=== PATIENT | male | born 1950 | race Caucasian/White ===

== ENCOUNTER 2017-05-02 16:00 | Inpatient (IN) ==
[2017-05-02 19:37] LABS: Basophils # 0.1 10*3/uL (0.0-0.2); Basophils % 0.8 % (0.0-0.8); Eosinophils # 0.8 10*3/uL (0.0-0.87); Eosinophils % 4.8 % (0.00-10.9); Hemoglobin 12.8 GM/DL (14.0-18.0); Immature Granulocytes % 0.4 %; Immature Granulocytes Absolute 0.06 #; Lymphocytes # 2.9 10*3/uL (1.4-4.0); Lymphocytes % 17.2 % (21.2-54.2); Mean Corpuscular HGB Conc 33.7 GM/DL (32-36); Mean Corpuscular Hemoglobin 29 PG (27-34); Mean Corpuscular Volume 85.6 FL (87-102); Mean Platelet Volume 9.4 FL (9.6-12.0); Monocytes % 5.7 % (1.7-12.7); Neutrophils % 71.1 % (38.7-73.9); Platelet Count 317 T/CUMM (130-400); Red Blood Count 4.44 MC/CUMM (3.8-5.5); Red Cell Distribution Width 13.2 % (9.3-17.3); White Blood Count 16.9 T/CUMM (4-12)
[2017-05-02 20:21] LABS: Albumin 3.2 G/DL (3.4-5.0); Bilirubin,Total 0.7 MG/DL (0.2-1.0); Calcium 8.9 MG/DL (8.5-10.1); Osmolality,Calculated 283.7 MOS/KG (273-304); Potassium 4.3 MMOL/L (3.5-5.1); Total Protein 7.4 G/DL (6.4-8.3)
[2017-05-02 20:22] LABS: Apearance,Urine CLOUDY (Clear); Bacteria,Urine Many /HPF (Few); Bilirubin,Urine Negative (Negative); Blood, Urine Large mg/dL (Negative); Glucose,Urine (UA) Negative (Negative); Ketones,Urine Negative (Negative); Mucus,Urine Occasional /LPF (Occasional); Nitrite,Urine Positive (Negative); Protein,Urine Negative; RBC,Urine 82 /HPF (0-4); Urine Color Yellow (Yellow); Urine Specific Gravity 1.011 (1.001-1.035); Urine Urobilinogen < 2.0 EU/DL (0.2-1.0); WBC,Urine 91 /HPF (0-6)
[2017-05-02] MEDS ORDERED: ACETAMINOPHEN 325 MG TABLET PO PRN (20:34)
[2017-05-02] MEDS ORDERED: MORPHINE 2 MG/1 ML SYRINGE IV PRN (20:34)
[2017-05-02] MEDS ORDERED: DIPH/TET/ACEL PERT BOOSTER VACCINE 0.5 ML VIAL IM ONE (20:34)
[2017-05-02] MEDS ORDERED: ONDANSETRON 4 MG/2 ML VIAL IV PRN (20:34)
[2017-05-02] MEDS: SODIUM CHLORIDE 0.45% 1,000 ML IV SCH (21:19)
[2017-05-02 22:32] LABS: Basophils # 0.1 10*3/uL (0.0-0.2); Basophils % 0.7 % (0.0-0.8); Eosinophils # 0.7 10*3/uL (0.0-0.87); Eosinophils % 4.5 % (0.00-10.9); Hemoglobin 12.7 GM/DL (14.0-18.0); Immature Granulocytes % 0.5 %; Immature Granulocytes Absolute 0.08 #; Lymphocytes % 18.9 % (21.2-54.2); Mean Corpuscular HGB Conc 34.3 GM/DL (32-36); Mean Corpuscular Hemoglobin 29 PG (27-34); Mean Corpuscular Volume 84.3 FL (87-102); Mean Platelet Volume 9.5 FL (9.6-12.0); Monocytes # 0.9 10*3/uL (0.11-0.8); Monocytes % 5.5 % (1.7-12.7); Neutrophils # 10.9 10*3/uL (1.4-7.4); Neutrophils % 69.9 % (38.7-73.9); Platelet Count 352 T/CUMM (130-400); Red Blood Count 4.39 MC/CUMM (3.8-5.5); Red Cell Distribution Width 13.2 % (9.3-17.3); White Blood Count 15.6 T/CUMM (4-12)
[2017-05-02 22:43] LABS: Calcium 9.1 MG/DL (8.5-10.1); Osmolality,Calculated 285.4 MOS/KG (273-304); Potassium 4.4 MMOL/L (3.5-5.1)
[2017-05-02] MEDS: LEVOFLOXACIN INJ 750 MG in PREMIX 1 EACH IV SCH (23:39)
[2017-05-03] MEDS: SODIUM CHLORIDE 0.45% 1,000 ML IV SCH ×3 (04:24→22:06)
[2017-05-03] MEDS ORDERED: DIPH/TET/ACEL PERT BOOSTER VACCINE 0.5 ML VIAL IM ONE (05:00)
[2017-05-03] MEDS: PANTOPRAZOLE 40 MG TABLET PO SCH (10:20)
[2017-05-03] MEDS ORDERED: PROPOFOL 200 MG/20 ML VIAL IV ONE (13:42)
[2017-05-03] MEDS ORDERED: ONDANSETRON 4 MG/2 ML VIAL ONE (13:43)
[2017-05-03] MEDS ORDERED: MIDAZOLAM 2 MG/2 ML VIAL ONE (13:43)
[2017-05-03] MEDS ORDERED: PHENYLEPHRINE 1 MG/10 ML SYRINGE IV ONE (13:43)
[2017-05-03] MEDS ORDERED: fentaNYL 100 MCG/2 ML VIAL ONE (13:43)
[2017-05-03] MEDS: SODIUM HYPOCHLORITE 0.25% IRRIG 473 ML BOTTLE TOP SCH (15:01)
[2017-05-03] MEDS: ZINC OXIDE PASTE 113 GM TUBE TOP SCH ×2 (15:02→21:36)
[2017-05-03] MEDS ORDERED: SODIUM CHLORIDE 0.9% IV SCH (18:30)
[2017-05-03] MEDS ORDERED: GENTAMICIN IV SCH (18:30)
[2017-05-03] MEDS ORDERED: GLUCAGON 1 MG VIAL IM PRN (18:45)
[2017-05-03] MEDS ORDERED: DEXTROSE 50% 25 GM/50 ML VIAL IV PRN (18:45)
[2017-05-03] MEDS: GENTAMICIN INJ 160 MG in SODIUM CHLORIDE 0.9% 100 ML IV SCH (20:46)
[2017-05-03] MEDS: INSULIN REGULAR 100 UNIT/ML SUBCUT SCH (21:35)
[2017-05-03] MEDS: metFORMIN 500 MG TABLET PO SCH (21:37)
[2017-05-03] MEDS: GLIMEPIRIDE 4 MG TABLET PO SCH (21:37)
[2017-05-04] MEDS: LEVOFLOXACIN INJ 750 MG in PREMIX 1 EACH IV SCH (00:15)
[2017-05-04] MEDS: SODIUM CHLORIDE 0.45% 1,000 ML IV SCH ×2 (04:06→14:13)
[2017-05-04 05:39] LABS: Basophils # 0.1 10*3/uL (0.0-0.2); Basophils % 0.8 % (0.0-0.8); Eosinophils # 0.7 10*3/uL (0.0-0.87); Eosinophils % 5.2 % (0.00-10.9); Hematocrit 35.1 VOL% (42.0-52.0); Hemoglobin 11.9 GM/DL (14.0-18.0); Immature Granulocytes % 0.4 %; Immature Granulocytes Absolute 0.05 #; Lymphocytes # 2.6 10*3/uL (1.4-4.0); Lymphocytes % 20.2 % (21.2-54.2); Mean Corpuscular HGB Conc 33.9 GM/DL (32-36); Mean Corpuscular Hemoglobin 29 PG (27-34); Mean Platelet Volume 9.5 FL (9.6-12.0); Monocytes # 0.8 10*3/uL (0.11-0.8); Monocytes % 6.4 % (1.7-12.7); Neutrophils # 8.6 10*3/uL (1.4-7.4); Platelet Count 319 T/CUMM (130-400); Red Blood Count 4.13 MC/CUMM (3.8-5.5); Red Cell Distribution Width 13.4 % (9.3-17.3); White Blood Count 12.8 T/CUMM (4-12)
[2017-05-04 06:23] LABS: Calcium 8.4 MG/DL (8.5-10.1); Osmolality,Calculated 281.4 MOS/KG (273-304); Potassium 4.3 MMOL/L (3.5-5.1)
[2017-05-04 06:33] LABS: Free T4 (Free Thyroxine) 1.07 NG/DL (0.76-1.46); Thyroid Stimulating Hormone 8.57 uIU/ml (0.358-3.74)
[2017-05-04] MEDS: LEVOTHYROXINE 150 MCG TABLET PO SCH (07:10)
[2017-05-04] MEDS: CHOLECALCIFEROL 5,000 UNIT TABLET PO SCH (08:23)
[2017-05-04] MEDS: OXYBUTYNIN XL 15 MG TABLET PO SCH (08:23)
[2017-05-04] MEDS: metFORMIN 500 MG TABLET PO SCH ×3 (08:23→21:18)
[2017-05-04] MEDS: GLIMEPIRIDE 4 MG TABLET PO SCH ×2 (08:23→21:18)
[2017-05-04] MEDS: ASPIRIN EC 81 MG TABLET PO SCH (08:23)
[2017-05-04] MEDS: PANTOPRAZOLE 40 MG TABLET PO SCH (08:23)
[2017-05-04] MEDS: amLODIPine 10 MG TABLET PO SCH (08:23)
[2017-05-04] MEDS: MULTIVITAMIN (BEROCCA) TABLET PO SCH (08:23)
[2017-05-04] MEDS: INSULIN REGULAR 100 UNIT/ML SUBCUT SCH ×4 (08:24→21:18)
[2017-05-04] MEDS: ZINC OXIDE PASTE 113 GM TUBE TOP SCH ×2 (08:24→21:16)
[2017-05-04] MEDS: GENTAMICIN INJ 160 MG in SODIUM CHLORIDE 0.9% 100 ML IV SCH (14:45)
[2017-05-04] MEDS: SODIUM HYPOCHLORITE 0.25% IRRIG 473 ML BOTTLE TOP SCH (14:45)
[2017-05-05 05:49] LABS: Basophils # 0.1 10*3/uL (0.0-0.2); Basophils % 0.7 % (0.0-0.8); Eosinophils # 0.7 10*3/uL (0.0-0.87); Eosinophils % 5.4 % (0.00-10.9); Hematocrit 35.1 VOL% (42.0-52.0); Hemoglobin 11.9 GM/DL (14.0-18.0); Immature Granulocytes % 0.4 %; Immature Granulocytes Absolute 0.06 #; Lymphocytes # 2.6 10*3/uL (1.4-4.0); Lymphocytes % 18.9 % (21.2-54.2); Mean Corpuscular HGB Conc 33.9 GM/DL (32-36); Mean Corpuscular Hemoglobin 29 PG (27-34); Mean Platelet Volume 9.7 FL (9.6-12.0); Monocytes % 7.2 % (1.7-12.7); Neutrophils # 9.2 10*3/uL (1.4-7.4); Neutrophils % 67.4 % (38.7-73.9); Platelet Count 311 T/CUMM (130-400); Red Blood Count 4.13 MC/CUMM (3.8-5.5); Red Cell Distribution Width 13.4 % (9.3-17.3); White Blood Count 13.7 T/CUMM (4-12)
[2017-05-05] MEDS: LEVOTHYROXINE 150 MCG TABLET PO SCH (06:21)
[2017-05-05 06:28] LABS: Calcium 8.1 MG/DL (8.5-10.1); Osmolality,Calculated 285.1 MOS/KG (273-304); Potassium 4.2 MMOL/L (3.5-5.1)
[2017-05-05] MEDS: INSULIN REGULAR 100 UNIT/ML SUBCUT SCH ×2 (08:32→11:52)
[2017-05-05] MEDS: GENTAMICIN INJ 160 MG in SODIUM CHLORIDE 0.9% 100 ML IV SCH (08:44)
[2017-05-05] MEDS: MULTIVITAMIN (BEROCCA) TABLET PO SCH (09:52)
[2017-05-05] MEDS: CHOLECALCIFEROL 5,000 UNIT TABLET PO SCH (09:52)
[2017-05-05] MEDS: OXYBUTYNIN XL 15 MG TABLET PO SCH (09:52)
[2017-05-05] MEDS: amLODIPine 10 MG TABLET PO SCH (09:53)
[2017-05-05] MEDS: ASPIRIN EC 81 MG TABLET PO SCH (09:53)
[2017-05-05] MEDS: PANTOPRAZOLE 40 MG TABLET PO SCH (09:53)
[2017-05-05] MEDS: metFORMIN 500 MG TABLET PO SCH (09:54)
[2017-05-05] MEDS: GLIMEPIRIDE 4 MG TABLET PO SCH (09:54)
[2017-05-05] MEDS ORDERED: DOXYCYCLINE HYCLATE 100 MG CAPSULE PO SCH (11:00)
[2017-05-05 11:27] VITALS: BP 119/74
[2017-05-05] MEDS: SODIUM HYPOCHLORITE 0.25% IRRIG 473 ML BOTTLE TOP SCH (14:10)
== END 2017-05-05 16:08 | disposition home health service (06) | DRG 503 ==
LOC: N.EDINP 16:00 → N.ED 16:00 → N.3E 20:06
PROVIDERS: ADMIT Surgery; ATTEND Surgery

== ENCOUNTER 2019-02-19 16:59 | Inpatient (IN) ==
[2019-02-19] MEDS ORDERED: fentaNYL 100 MCG/2 ML VIAL IV STA (18:28)
[2019-02-19] MEDS ORDERED: SODIUM CHLORIDE 0.9% 1,000 ML IV STA ×2 (18:28→19:41)
[2019-02-19] MEDS ORDERED: ONDANSETRON 4 MG/2 ML VIAL IV STA (18:28)
[2019-02-19 19:26] LABS: Alanine Aminotransferase 19 U/L (16-61); Albumin 2.4 G/DL (3.4-5.0); Alkaline Phosphatase 107 U/L (45-117); Aspartate Amino Transferase 12 U/L (0-37); Blood Urea Nitrogen 18 MG/DL (7-18); Calcium 8.4 MG/DL (8.5-10.1); Estimated Glom Filtration Rate 127 ML/MIN; Glucose 219 MG/DL (74-106); Osmolality,Calculated 283.7 MOS/KG (273-304); Total Protein 7.2 G/DL (6.4-8.3); Troponin I < 0.015 NG/ML (0.00-0.045)
[2019-02-19 19:28] LABS: Basophils # 0.1 10*3/uL (0.0-0.2); Basophils % 0.5 % (0.0-0.8); Eosinophils # 0.3 10*3/uL (0.0-0.87); Eosinophils % 1.3 % (0.00-10.9); Hematocrit 35.2 VOL% (42.0-52.0); Hemoglobin 11.4 GM/DL (14.0-18.0); Immature Granulocytes % 0.5 %; Lymphocytes # 1.8 10*3/uL (1.4-4.0); Lymphocytes % 8.8 % (21.2-54.2); Mean Corpuscular HGB Conc 32.4 GM/DL (32-36); Mean Platelet Volume 9.9 FL (9.6-12.0); Monocytes % 5.4 % (1.7-12.7); Neutrophils % 83.5 % (38.7-73.9); Platelet Count 393 T/CUMM (130-400); White Blood Count 20.1 T/CUMM (4-12)
[2019-02-19 19:30] LABS: Apearance,Urine CLOUDY (Clear); Bacteria,Urine Occasional /HPF (Few); Bilirubin,Urine Negative (Negative); Blood, Urine Small mg/dL (Negative); Glucose,Urine (UA) 50 mg/dL (Negative); Ketones,Urine Negative (Negative); Mucus,Urine Few /LPF (Occasional); Nitrite,Urine Negative (Negative); Protein,Urine 30 MG/DL; RBC,Urine 12 /HPF (0-4); Urine Color Yellow (Yellow); Urine Specific Gravity 1.019 (1.001-1.035); Urine Urobilinogen < 2.0 EU/DL (0.2-1.0); WBC,Urine 354 /HPF (0-6)
[2019-02-19] MEDS ORDERED: VANCOMYCIN INJ 1,000 MG in SODIUM CHLORIDE 0.9% 250 ML IV STA (19:33)
[2019-02-19] MEDS ORDERED: traZODone 50 MG TABLET PO PRN (20:11)
[2019-02-19] MEDS ORDERED: DEXTROSE 10% 250 ML BAG IV PRN (20:11)
[2019-02-19] MEDS ORDERED: GLUCAGON 1 MG VIAL IM PRN ×2 (20:11→20:13)
[2019-02-19] MEDS ORDERED: DOCUSATE SODIUM 100 MG CAPSULE PO PRN (20:11)
[2019-02-19] MEDS ORDERED: ONDANSETRON 4 MG/2 ML VIAL IV PRN (20:11)
[2019-02-19] MEDS ORDERED: DEXTROSE 50% 25 GM/50 ML VIAL IV PRN (20:13)
[2019-02-19] MEDS ORDERED: HYDROmorphone 2 MG/1 ML VIAL IV PRN (20:37)
[2019-02-19] MEDS: SODIUM CHLORIDE 0.45% 1,000 ML IV SCH (22:51)
[2019-02-19] MEDS: MEROPENEM 500 MG in SODIUM CHLORIDE 0.9% 100 ML IV SCH (22:52)
[2019-02-19] MEDS ORDERED: VANCOMYCIN INJ 750 MG in SODIUM CHLORIDE 0.9% 250 ML IV ONE (23:00)
[2019-02-20 00:17] LABS: Anisocytosis 1+; Eosinophils 3 % (0-10); Lymphocytes 9 % (20-55); Platelet Estimate Adequate; Segmented Neutrophils 83 % (50-85); Total Cells Counted 100
[2019-02-20 01:14] LABS: Basophils # 0.1 10*3/uL (0.0-0.2); Basophils % 0.5 % (0.0-0.8); Eosinophils # 0.1 10*3/uL (0.0-0.87); Eosinophils % 0.7 % (0.00-10.9); Hematocrit 34.7 VOL% (42.0-52.0); Hemoglobin 11.4 GM/DL (14.0-18.0); Immature Granulocytes % 0.4 %; Immature Granulocytes Absolute 0.07 #; Lymphocytes # 2.1 10*3/uL (1.4-4.0); Lymphocytes % 12.4 % (21.2-54.2); Mean Corpuscular HGB Conc 32.9 GM/DL (32-36); Mean Corpuscular Volume 87.2 FL (87-102); Mean Platelet Volume 9.4 FL (9.6-12.0); Monocytes % 6.3 % (1.7-12.7); Neutrophils % 79.7 % (38.7-73.9); Platelet Count 348 T/CUMM (130-400); Red Blood Count 3.98 MC/CUMM (3.8-5.5); Red Cell Distribution Width 13.1 % (9.3-17.3); White Blood Count 16.7 T/CUMM (4-12)
[2019-02-20 01:34] LABS: Calcium 7.9 MG/DL (8.5-10.1); Osmolality,Calculated 294.7 MOS/KG (273-304)
[2019-02-20] MEDS: MEROPENEM 500 MG in SODIUM CHLORIDE 0.9% 100 ML IV SCH ×4 (04:56→21:26)
[2019-02-20] MEDS: LEVOTHYROXINE 150 MCG TABLET PO SCH (06:53)
[2019-02-20] MEDS: INSULIN REGULAR 100 UNIT/ML SUBCUT SCH ×2 (08:07→17:48)
[2019-02-20] MEDS: ENOXAPARIN 40 MG/0.4 ML SYRINGE SUBCUT SCH (09:26)
[2019-02-20] MEDS: CHOLECALCIFEROL 1,000 UNIT TABLET PO SCH (09:26)
[2019-02-20] MEDS: ASPIRIN EC 325 MG TABLET PO SCH (09:26)
[2019-02-20] MEDS: ZINC GLUCONATE 50 MG TABLET PO SCH (09:26)
[2019-02-20] MEDS: amLODIPine 10 MG TABLET PO SCH (09:26)
[2019-02-20] MEDS: OXYBUTYNIN XL 15 MG TABLET PO SCH (09:26)
[2019-02-20] MEDS: MULTIVITAMIN (BEROCCA) TABLET PO SCH (09:26)
[2019-02-20] MEDS: VANCOMYCIN INJ 1,750 MG in SODIUM CHLORIDE 0.9% 500 ML IV SCH (11:24)
[2019-02-20] MEDS: SODIUM CHLORIDE 0.45% 1,000 ML IV SCH ×2 (11:24→17:48)
[2019-02-20] MEDS ORDERED: TUBERCULIN SKIN TEST 0.1 ML SYRINGE INTRADERM ONE (14:47)
[2019-02-20] MEDS: SKIN HEALING OINT (AQUAPHOR) 50 GM TUBE TOP SCH (15:54)
[2019-02-20] MEDS: NYSTATIN POWDER 15 GM BOTTLE TOP SCH (21:26)
[2019-02-21] MEDS: VANCOMYCIN INJ 1,750 MG in SODIUM CHLORIDE 0.9% 500 ML IV SCH ×2 (00:02→11:32)
[2019-02-21] MEDS: SODIUM CHLORIDE 0.45% 1,000 ML IV SCH ×3 (00:10→22:30)
[2019-02-21] MEDS: MEROPENEM 500 MG in SODIUM CHLORIDE 0.9% 100 ML IV SCH ×4 (03:01→21:10)
[2019-02-21] MEDS: LEVOTHYROXINE 150 MCG TABLET PO SCH (06:03)
[2019-02-21 06:24] LABS: Basophils # 0.1 10*3/uL (0.0-0.2); Basophils % 0.7 % (0.0-0.8); Eosinophils # 0.5 10*3/uL (0.0-0.87); Eosinophils % 3.8 % (0.00-10.9); Hematocrit 31.1 VOL% (42.0-52.0); Hemoglobin 9.9 GM/DL (14.0-18.0); Immature Granulocytes % 0.8 %; Lymphocytes # 2.2 10*3/uL (1.4-4.0); Lymphocytes % 17.4 % (21.2-54.2); Mean Corpuscular HGB Conc 31.8 GM/DL (32-36); Mean Corpuscular Volume 89.4 FL (87-102); Mean Platelet Volume 9.8 FL (9.6-12.0); Monocytes % 6.2 % (1.7-12.7); Neutrophils % 71.1 % (38.7-73.9); Platelet Count 325 T/CUMM (130-400); Red Blood Count 3.48 MC/CUMM (3.8-5.5); White Blood Count 12.4 T/CUMM (4-12)
[2019-02-21 06:27] LABS: Calcium 7.9 MG/DL (8.5-10.1); Osmolality,Calculated 290.8 MOS/KG (273-304)
[2019-02-21] MEDS: INSULIN REGULAR 100 UNIT/ML SUBCUT SCH ×2 (07:35→17:24)
[2019-02-21] MEDS ORDERED: SUGAMMADEX 200 MG/2 ML VIAL IV ONE (09:38)
[2019-02-21] MEDS ORDERED: MIDAZOLAM 2 MG/2 ML VIAL ONE (09:41)
[2019-02-21] MEDS ORDERED: propofoL 200 MG/20 ML VIAL IV ONE (09:41)
[2019-02-21] MEDS ORDERED: SEVOFLURANE 1 UNIT/15 MINUTE INH ONE (09:41)
[2019-02-21] MEDS ORDERED: fentaNYL 100 MCG/2 ML VIAL ONE (09:41)
[2019-02-21] MEDS ORDERED: LIDOCAINE 2% 5 ML VIAL ONE (09:41)
[2019-02-21] MEDS ORDERED: PHENYLEPHRINE 1 MG/10 ML SYRINGE IV ONE (09:42)
[2019-02-21] MEDS ORDERED: LACTATED RINGERS 1,000 ML IV ONE (09:42)
[2019-02-21] MEDS ORDERED: ROCURONIUM 100 MG/10 ML VIAL IV ONE (09:42)
[2019-02-21] MEDS: MULTIVITAMIN (BEROCCA) TABLET PO SCH (10:07)
[2019-02-21] MEDS: ENOXAPARIN 40 MG/0.4 ML SYRINGE SUBCUT SCH (10:07)
[2019-02-21] MEDS: SKIN HEALING OINT (AQUAPHOR) 50 GM TUBE TOP SCH (10:07)
[2019-02-21] MEDS: CHOLECALCIFEROL 1,000 UNIT TABLET PO SCH (10:08)
[2019-02-21] MEDS: ZINC GLUCONATE 50 MG TABLET PO SCH (10:08)
[2019-02-21] MEDS: NYSTATIN POWDER 15 GM BOTTLE TOP SCH ×2 (10:08→20:43)
[2019-02-21] MEDS: OXYBUTYNIN XL 15 MG TABLET PO SCH (10:35)
[2019-02-21] MEDS: ASPIRIN EC 325 MG TABLET PO SCH (10:36)
[2019-02-21] MEDS: amLODIPine 10 MG TABLET PO SCH (10:36)
[2019-02-21] MEDS: ACETAMINOPHEN 325 MG TABLET PO PRN (20:41)
[2019-02-22] MEDS: VANCOMYCIN INJ 1,750 MG in SODIUM CHLORIDE 0.9% 500 ML IV SCH ×2 (00:16→12:21)
[2019-02-22] MEDS: MEROPENEM 500 MG in SODIUM CHLORIDE 0.9% 100 ML IV SCH ×4 (03:08→21:26)
[2019-02-22 05:44] LABS: Basophils # 0.1 10*3/uL (0.0-0.2); Basophils % 0.8 % (0.0-0.8); Eosinophils # 0.6 10*3/uL (0.0-0.87); Eosinophils % 5.1 % (0.00-10.9); Hematocrit 29.7 VOL% (42.0-52.0); Hemoglobin 9.4 GM/DL (14.0-18.0); Immature Granulocytes % 0.5 %; Immature Granulocytes Absolute 0.06 #; Lymphocytes # 2.1 10*3/uL (1.4-4.0); Lymphocytes % 17.2 % (21.2-54.2); Mean Corpuscular HGB Conc 31.6 GM/DL (32-36); Mean Corpuscular Volume 89.2 FL (87-102); Mean Platelet Volume 9.8 FL (9.6-12.0); Monocytes % 6.2 % (1.7-12.7); Neutrophils % 70.2 % (38.7-73.9); Platelet Count 319 T/CUMM (130-400); Red Blood Count 3.33 MC/CUMM (3.8-5.5); White Blood Count 12.4 T/CUMM (4-12)
[2019-02-22 06:05] LABS: Calcium 7.8 MG/DL (8.5-10.1); Osmolality,Calculated 285.1 MOS/KG (273-304)
[2019-02-22] MEDS: LEVOTHYROXINE 150 MCG TABLET PO SCH (06:47)
[2019-02-22] MEDS: INSULIN REGULAR 100 UNIT/ML SUBCUT SCH ×2 (08:32→18:36)
[2019-02-22] MEDS: ENOXAPARIN 40 MG/0.4 ML SYRINGE SUBCUT SCH (09:43)
[2019-02-22] MEDS: ZINC GLUCONATE 50 MG TABLET PO SCH (09:46)
[2019-02-22] MEDS: ASPIRIN EC 325 MG TABLET PO SCH (09:46)
[2019-02-22] MEDS: MULTIVITAMIN (BEROCCA) TABLET PO SCH (09:46)
[2019-02-22] MEDS: CHOLECALCIFEROL 1,000 UNIT TABLET PO SCH (09:46)
[2019-02-22] MEDS: amLODIPine 10 MG TABLET PO SCH (09:46)
[2019-02-22] MEDS: OXYBUTYNIN XL 15 MG TABLET PO SCH (09:46)
[2019-02-22] MEDS: NYSTATIN POWDER 15 GM BOTTLE TOP SCH ×2 (09:54→22:26)
[2019-02-22] MEDS: MAGNESIUM CHLORIDE 64 MG TABLET PO SCH ×2 (09:56→20:23)
[2019-02-22] MEDS: SKIN HEALING OINT (AQUAPHOR) 50 GM TUBE TOP SCH (16:18)
[2019-02-22] MEDS: ACETAMINOPHEN 325 MG TABLET PO PRN (20:23)
[2019-02-22] MEDS: SODIUM CHLORIDE 0.45% 1,000 ML IV SCH (22:14)
[2019-02-23] MEDS: MEROPENEM 500 MG in SODIUM CHLORIDE 0.9% 100 ML IV SCH ×4 (04:03→21:43)
[2019-02-23] MEDS: LEVOTHYROXINE 150 MCG TABLET PO SCH (06:26)
[2019-02-23 06:35] LABS: Basophils # 0.1 10*3/uL (0.0-0.2); Basophils % 0.7 % (0.0-0.8); Eosinophils # 0.5 10*3/uL (0.0-0.87); Eosinophils % 4.4 % (0.00-10.9); Hematocrit 29.9 VOL% (42.0-52.0); Hemoglobin 9.6 GM/DL (14.0-18.0); Immature Granulocytes % 0.6 %; Immature Granulocytes Absolute 0.07 #; Lymphocytes # 1.9 10*3/uL (1.4-4.0); Lymphocytes % 16.1 % (21.2-54.2); Mean Corpuscular HGB Conc 32.1 GM/DL (32-36); Mean Corpuscular Volume 88.2 FL (87-102); Mean Platelet Volume 9.6 FL (9.6-12.0); Monocytes % 7.1 % (1.7-12.7); Neutrophils % 71.1 % (38.7-73.9); Platelet Count 364 T/CUMM (130-400); Red Blood Count 3.39 MC/CUMM (3.8-5.5); Red Cell Distribution Width 12.9 % (9.3-17.3); White Blood Count 11.7 T/CUMM (4-12)
[2019-02-23 06:57] LABS: Calcium 7.9 MG/DL (8.5-10.1); Osmolality,Calculated 282.1 MOS/KG (273-304)
[2019-02-23] MEDS: INSULIN REGULAR 100 UNIT/ML SUBCUT SCH ×2 (08:45→17:01)
[2019-02-23] MEDS ORDERED: MAGNESIUM SULFATE 1 GM/2 ML VIAL IM ONE (09:00)
[2019-02-23] MEDS: MAGNESIUM CHLORIDE 64 MG TABLET PO SCH ×2 (09:23→21:43)
[2019-02-23] MEDS: CHOLECALCIFEROL 1,000 UNIT TABLET PO SCH (09:23)
[2019-02-23] MEDS: ZINC GLUCONATE 50 MG TABLET PO SCH (09:23)
[2019-02-23] MEDS: ENOXAPARIN 40 MG/0.4 ML SYRINGE SUBCUT SCH (09:23)
[2019-02-23] MEDS: SKIN HEALING OINT (AQUAPHOR) 50 GM TUBE TOP SCH (09:24)
[2019-02-23] MEDS: OXYBUTYNIN XL 15 MG TABLET PO SCH (09:24)
[2019-02-23] MEDS: MULTIVITAMIN (BEROCCA) TABLET PO SCH (09:24)
[2019-02-23] MEDS: NYSTATIN POWDER 15 GM BOTTLE TOP SCH ×2 (09:24→21:43)
[2019-02-23] MEDS: amLODIPine 10 MG TABLET PO SCH (09:24)
[2019-02-23] MEDS: ASPIRIN EC 325 MG TABLET PO SCH (09:24)
[2019-02-23] MEDS: ALBUTEROL 1.25 MG/3 ML NEB RESP TX SCH ×2 (15:10→23:12)
[2019-02-23] MEDS: ACETIC ACID 0.25% IRRIGATION 1,000 ML BOTTLE IRRIG SCH (15:23)
[2019-02-23] MEDS: ACETAMINOPHEN 325 MG TABLET PO PRN (17:17)
[2019-02-24] MEDS: MEROPENEM 500 MG in SODIUM CHLORIDE 0.9% 100 ML IV SCH ×4 (04:54→21:22)
[2019-02-24] MEDS: LEVOTHYROXINE 150 MCG TABLET PO SCH (06:27)
[2019-02-24 06:42] LABS: Basophils # 0.1 10*3/uL (0.0-0.2); Basophils % 0.6 % (0.0-0.8); Eosinophils # 0.5 10*3/uL (0.0-0.87); Eosinophils % 4.2 % (0.00-10.9); Hematocrit 32.7 VOL% (42.0-52.0); Hemoglobin 10.6 GM/DL (14.0-18.0); Immature Granulocytes % 0.6 %; Immature Granulocytes Absolute 0.07 #; Lymphocytes # 1.7 10*3/uL (1.4-4.0); Lymphocytes % 15.3 % (21.2-54.2); Mean Corpuscular HGB Conc 32.4 GM/DL (32-36); Mean Corpuscular Volume 87.7 FL (87-102); Mean Platelet Volume 9.5 FL (9.6-12.0); Monocytes % 6.6 % (1.7-12.7); Neutrophils % 72.7 % (38.7-73.9); Platelet Count 418 T/CUMM (130-400); Red Blood Count 3.73 MC/CUMM (3.8-5.5); Red Cell Distribution Width 12.6 % (9.3-17.3); White Blood Count 11.1 T/CUMM (4-12)
[2019-02-24 07:07] LABS: Calcium 8.2 MG/DL (8.5-10.1); Osmolality,Calculated 286.8 MOS/KG (273-304)
[2019-02-24] MEDS: ALBUTEROL 1.25 MG/3 ML NEB RESP TX SCH ×3 (07:41→23:15)
[2019-02-24] MEDS: INSULIN REGULAR 100 UNIT/ML SUBCUT SCH ×2 (08:00→17:51)
[2019-02-24] MEDS: MULTIVITAMIN (BEROCCA) TABLET PO SCH (09:55)
[2019-02-24] MEDS: CHOLECALCIFEROL 1,000 UNIT TABLET PO SCH (09:55)
[2019-02-24] MEDS: ASPIRIN EC 325 MG TABLET PO SCH (09:55)
[2019-02-24] MEDS: MAGNESIUM CHLORIDE 64 MG TABLET PO SCH ×2 (09:55→21:15)
[2019-02-24] MEDS: ZINC GLUCONATE 50 MG TABLET PO SCH (09:55)
[2019-02-24] MEDS: ENOXAPARIN 40 MG/0.4 ML SYRINGE SUBCUT SCH (09:56)
[2019-02-24] MEDS: amLODIPine 10 MG TABLET PO SCH (09:56)
[2019-02-24] MEDS: OXYBUTYNIN XL 15 MG TABLET PO SCH (09:56)
[2019-02-24] MEDS: SKIN HEALING OINT (AQUAPHOR) 50 GM TUBE TOP SCH (09:56)
[2019-02-24] MEDS: NYSTATIN POWDER 15 GM BOTTLE TOP SCH ×2 (09:57→21:23)
[2019-02-24] MEDS: ACETIC ACID 0.25% IRRIGATION 1,000 ML BOTTLE IRRIG SCH (09:57)
[2019-02-24] MEDS: ACETAMINOPHEN 325 MG TABLET PO PRN (21:17)
[2019-02-25] MEDS: MEROPENEM 500 MG in SODIUM CHLORIDE 0.9% 100 ML IV SCH ×3 (03:55→16:04)
[2019-02-25 04:52] LABS: Basophils # 0.1 10*3/uL (0.0-0.2); Basophils % 0.8 % (0.0-0.8); Eosinophils # 0.6 10*3/uL (0.0-0.87); Hematocrit 35.8 VOL% (42.0-52.0); Hemoglobin 11.5 GM/DL (14.0-18.0); Immature Granulocytes % 0.8 %; Immature Granulocytes Absolute 0.09 #; Lymphocytes # 2.5 10*3/uL (1.4-4.0); Lymphocytes % 20.8 % (21.2-54.2); Mean Corpuscular HGB Conc 32.1 GM/DL (32-36); Mean Corpuscular Volume 87.5 FL (87-102); Mean Platelet Volume 9.2 FL (9.6-12.0); Monocytes % 6.4 % (1.7-12.7); Neutrophils % 66.2 % (38.7-73.9); Platelet Count 456 T/CUMM (130-400); Red Blood Count 4.09 MC/CUMM (3.8-5.5); Red Cell Distribution Width 12.8 % (9.3-17.3)
[2019-02-25 05:26] LABS: Calcium 8.5 MG/DL (8.5-10.1); Osmolality,Calculated 287.8 MOS/KG (273-304)
[2019-02-25] MEDS: ALBUTEROL 1.25 MG/3 ML NEB RESP TX SCH ×2 (07:45→15:01)
[2019-02-25] MEDS: INSULIN REGULAR 100 UNIT/ML SUBCUT SCH ×2 (08:36→16:04)
[2019-02-25] MEDS ORDERED: GENTAMICIN 0.1% CREAM 15 GM TUBE TOP SCH (09:00)
[2019-02-25] MEDS: ENOXAPARIN 40 MG/0.4 ML SYRINGE SUBCUT SCH (09:26)
[2019-02-25] MEDS: MAGNESIUM CHLORIDE 64 MG TABLET PO SCH (09:26)
[2019-02-25] MEDS: CHOLECALCIFEROL 1,000 UNIT TABLET PO SCH (09:26)
[2019-02-25] MEDS: MULTIVITAMIN (BEROCCA) TABLET PO SCH (09:26)
[2019-02-25] MEDS: OXYBUTYNIN XL 15 MG TABLET PO SCH (09:27)
[2019-02-25] MEDS: SKIN HEALING OINT (AQUAPHOR) 50 GM TUBE TOP SCH (09:27)
[2019-02-25] MEDS: ACETIC ACID 0.25% IRRIGATION 1,000 ML BOTTLE IRRIG SCH (09:27)
[2019-02-25] MEDS: amLODIPine 10 MG TABLET PO SCH (09:27)
[2019-02-25] MEDS: ASPIRIN EC 325 MG TABLET PO SCH (09:27)
[2019-02-25] MEDS: ZINC GLUCONATE 50 MG TABLET PO SCH (09:27)
[2019-02-25] MEDS: NYSTATIN POWDER 15 GM BOTTLE TOP SCH (09:28)
[2019-02-25] MEDS: LEVOTHYROXINE 150 MCG TABLET PO SCH (09:31)
[2019-02-25 13:11] LABS: Amorphous Crystals,Urine Occasional /HPF (Few); Apearance,Urine Slightly Hazy (Clear); Bilirubin,Urine Negative (Negative); Blood, Urine Small mg/dL (Negative); Glucose,Urine (UA) 50 mg/dL (Negative); Ketones,Urine Negative (Negative); Mucus,Urine Occasional /LPF (Occasional); Nitrite,Urine Negative (Negative); Protein,Urine Negative; RBC,Urine 7 /HPF (0-4); Urine Color Yellow (Yellow); Urine Specific Gravity 1.013 (1.001-1.035); Urine Urobilinogen < 2.0 EU/DL (0.2-1.0); WBC,Urine 55 /HPF (0-6)
[2019-02-25 16:04] VITALS: BP 104/63
[2019-02-25] MEDS ORDERED: GLIMEPIRIDE 4 MG TABLET PO SCH (21:00)
[2019-02-26] MEDS ORDERED: FOLIC ACID 1 MG TABLET PO SCH (09:00)
== END 2019-02-25 18:53 | DRG 570 ==
LOC: N.ED 16:59 → SUATTDRO 20:11 → N.EDINP 20:11 → N.3E 21:32
PROVIDERS: ADMIT Hospitalist; ATTEND Family Medicine

== ENCOUNTER 2019-04-17 05:56 | Inpatient (IN) ==
[2019-04-17 07:08] LABS: Basophils # 0.1 10*3/uL (0.0-0.2); Basophils % 0.6 % (0.0-0.8); Eosinophils # 0.7 10*3/uL (0.0-0.87); Eosinophils % 4.8 % (0.00-10.9); Hematocrit 36.4 VOL% (42.0-52.0); Hemoglobin 11.2 GM/DL (14.0-18.0); Immature Granulocytes % 0.5 %; Immature Granulocytes Absolute 0.07 #; Lymphocytes # 2.3 10*3/uL (1.4-4.0); Lymphocytes % 16.8 % (21.2-54.2); Mean Corpuscular HGB Conc 30.8 GM/DL (32-36); Mean Corpuscular Volume 88.6 FL (87-102); Mean Platelet Volume 8.9 FL (9.6-12.0); Monocytes % 6.2 % (1.7-12.7); Neutrophils % 71.1 % (38.7-73.9); Platelet Count 352 T/CUMM (130-400); Red Blood Count 4.11 MC/CUMM (3.8-5.5); White Blood Count 13.8 T/CUMM (4-12)
[2019-04-17] MEDS ORDERED: LIDOCAINE 1%/EPI INJ 20 ML VIAL ONE (07:12)
[2019-04-17] MEDS ORDERED: BUPIVACAINE MPF 0.25% 30 ML VIAL ONE (07:13)
[2019-04-17 07:32] LABS: Albumin 2.3 G/DL (3.4-5.0); Bilirubin,Total 0.6 MG/DL (0.2-1.0); Calcium 9.2 MG/DL (8.5-10.1); Osmolality,Calculated 280.5 MOS/KG (273-304); Total Protein 7.4 G/DL (6.4-8.3)
[2019-04-17] MEDS ORDERED: ACETAMINOPHEN 325 MG TABLET PO PRN (07:38)
[2019-04-17] MEDS ORDERED: ONDANSETRON 4 MG/2 ML VIAL IV PRN (07:38)
[2019-04-17] MEDS ORDERED: LACTATED RINGERS 1,000 ML IV SCH ×2 (08:00)
[2019-04-17] MEDS ORDERED: PIPERACILLIN/TAZOBACTAM 3,375 MG VIAL IV ONE (08:01)
[2019-04-17] MEDS ORDERED: SUGAMMADEX 200 MG/2 ML VIAL IV ONE (08:04)
[2019-04-17] MEDS ORDERED: PHENYLEPHRINE 1 MG/10 ML SYRINGE IV ONE ×2 (08:58→09:11)
[2019-04-17] MEDS ORDERED: SEVOFLURANE 1 UNIT/15 MINUTE INH ONE (09:10)
[2019-04-17] MEDS ORDERED: LIDOCAINE 2% 5 ML VIAL ONE (09:10)
[2019-04-17] MEDS ORDERED: propofoL 200 MG/20 ML VIAL IV ONE (09:10)
[2019-04-17] MEDS ORDERED: ONDANSETRON 4 MG/2 ML VIAL ONE (09:11)
[2019-04-17] MEDS ORDERED: fentaNYL 100 MCG/2 ML VIAL ONE (09:11)
[2019-04-17] MEDS ORDERED: MIDAZOLAM 2 MG/2 ML VIAL ONE (09:11)
[2019-04-17] MEDS ORDERED: ROCURONIUM 100 MG/10 ML VIAL IV ONE (09:11)
[2019-04-17] MEDS ORDERED: ALBUMIN 5% 12.5 GM in PREMIX 1 EACH IV ONE (09:24)
[2019-04-17] MEDS ORDERED: ALBUMIN 5% 12.5 GM/250 ML VIAL IV ONE (09:26)
[2019-04-17] MEDS ORDERED: DEXTROSE 50% 25 GM/50 ML VIAL IV ONE (10:55)
[2019-04-17] MEDS ORDERED: DEXTROSE 10% 25 GM/250 ML BAG IV ONE (11:00)
[2019-04-17] MEDS: PANTOPRAZOLE 40 MG TABLET PO SCH (12:37)
[2019-04-17] MEDS: ACETIC ACID 0.25% IRRIGATION 1,000 ML BOTTLE IRRIG SCH ×2 (12:38→22:18)
[2019-04-18 05:17] LABS: Basophils # 0.1 10*3/uL (0.0-0.2); Basophils % 0.5 % (0.0-0.8); Eosinophils # 0.6 10*3/uL (0.0-0.87); Eosinophils % 4.6 % (0.00-10.9); Hematocrit 30.9 VOL% (42.0-52.0); Hemoglobin 9.5 GM/DL (14.0-18.0); Immature Granulocytes % 0.6 %; Immature Granulocytes Absolute 0.07 #; Lymphocytes # 2.9 10*3/uL (1.4-4.0); Lymphocytes % 23.4 % (21.2-54.2); Mean Corpuscular HGB Conc 30.7 GM/DL (32-36); Mean Platelet Volume 9.3 FL (9.6-12.0); Neutrophils % 64.9 % (38.7-73.9); Platelet Count 318 T/CUMM (130-400); Red Blood Count 3.51 MC/CUMM (3.8-5.5); Red Cell Distribution Width 13.9 % (9.3-17.3); White Blood Count 12.3 T/CUMM (4-12)
[2019-04-18 05:40] LABS: Calcium 8.5 MG/DL (8.5-10.1); Osmolality,Calculated 280.4 MOS/KG (273-304)
[2019-04-18] MEDS: PANTOPRAZOLE 40 MG TABLET PO SCH (09:10)
[2019-04-18] MEDS: ACETIC ACID 0.25% IRRIGATION 1,000 ML BOTTLE IRRIG SCH ×2 (19:13→22:11)
[2019-04-18] MEDS: GLIMEPIRIDE 4 MG TABLET PO SCH (22:10)
[2019-04-19] MEDS: metOLazone 2.5 MG TABLET PO SCH (08:54)
[2019-04-19] MEDS: GLIMEPIRIDE 4 MG TABLET PO SCH ×2 (08:54→22:11)
[2019-04-19] MEDS: ASPIRIN EC 81 MG TABLET PO SCH (08:54)
[2019-04-19] MEDS: LEVOTHYROXINE 150 MCG TABLET PO SCH (08:54)
[2019-04-19] MEDS: amLODIPine 10 MG TABLET PO SCH (08:55)
[2019-04-19] MEDS: OXYBUTYNIN XL 15 MG TABLET PO SCH (08:55)
[2019-04-19] MEDS: POTASSIUM CHLORIDE 10 MEQ TABLET PO SCH (08:55)
[2019-04-19] MEDS: PANTOPRAZOLE 40 MG TABLET PO SCH (08:56)
[2019-04-19] MEDS: ACETIC ACID 0.25% IRRIGATION 1,000 ML BOTTLE IRRIG SCH ×2 (12:42→22:21)
[2019-04-20] MEDS: LEVOTHYROXINE 150 MCG TABLET PO SCH (06:16)
[2019-04-20] MEDS: OXYBUTYNIN XL 15 MG TABLET PO SCH (10:43)
[2019-04-20] MEDS: metOLazone 2.5 MG TABLET PO SCH (10:43)
[2019-04-20] MEDS: POTASSIUM CHLORIDE 10 MEQ TABLET PO SCH (10:44)
[2019-04-20] MEDS: amLODIPine 10 MG TABLET PO SCH (10:44)
[2019-04-20] MEDS: PANTOPRAZOLE 40 MG TABLET PO SCH (10:44)
[2019-04-20] MEDS: ASPIRIN EC 81 MG TABLET PO SCH (10:44)
[2019-04-20] MEDS: GLIMEPIRIDE 4 MG TABLET PO SCH ×2 (10:44→20:32)
[2019-04-20] MEDS: ACETIC ACID 0.25% IRRIGATION 1,000 ML BOTTLE IRRIG SCH ×2 (13:40→20:55)
[2019-04-21] MEDS: LEVOTHYROXINE 150 MCG TABLET PO SCH (06:10)
[2019-04-21] MEDS: MELOXICAM 7.5 MG TABLET PO SCH ×2 (12:45→20:57)
[2019-04-21] MEDS: amLODIPine 10 MG TABLET PO SCH (12:45)
[2019-04-21] MEDS: POTASSIUM CHLORIDE 10 MEQ TABLET PO SCH (12:46)
[2019-04-21] MEDS: OXYBUTYNIN XL 15 MG TABLET PO SCH (12:46)
[2019-04-21] MEDS: PANTOPRAZOLE 40 MG TABLET PO SCH (12:46)
[2019-04-21] MEDS: ASPIRIN EC 81 MG TABLET PO SCH (12:46)
[2019-04-21] MEDS: metOLazone 2.5 MG TABLET PO SCH (12:47)
[2019-04-21] MEDS: GLIMEPIRIDE 4 MG TABLET PO SCH ×2 (12:51→20:57)
[2019-04-21] MEDS: ACETIC ACID 0.25% IRRIGATION 1,000 ML BOTTLE IRRIG SCH ×2 (17:04→20:53)
[2019-04-22] MEDS: LEVOTHYROXINE 150 MCG TABLET PO SCH (06:04)
[2019-04-22] MEDS: PANTOPRAZOLE 40 MG TABLET PO SCH (09:02)
[2019-04-22] MEDS: amLODIPine 10 MG TABLET PO SCH (09:02)
[2019-04-22] MEDS: ASPIRIN EC 81 MG TABLET PO SCH (09:02)
[2019-04-22] MEDS: OXYBUTYNIN XL 15 MG TABLET PO SCH (09:03)
[2019-04-22] MEDS: GLIMEPIRIDE 4 MG TABLET PO SCH ×2 (09:03→20:39)
[2019-04-22] MEDS: MELOXICAM 7.5 MG TABLET PO SCH ×2 (09:04→20:40)
[2019-04-22] MEDS: POTASSIUM CHLORIDE 10 MEQ TABLET PO SCH (09:04)
[2019-04-22] MEDS: metOLazone 2.5 MG TABLET PO SCH (09:05)
[2019-04-22] MEDS ORDERED: GENTAMICIN 0.1% CREAM 15 GM TUBE TOP SCH (15:00)
[2019-04-22] MEDS: ACETIC ACID 0.25% IRRIGATION 1,000 ML BOTTLE IRRIG SCH ×2 (17:04→20:41)
[2019-04-22] MEDS: GENTAMICIN 0.1% OINT 15 GM TUBE TOP SCH ×2 (17:04→20:40)
[2019-04-23] MEDS: LEVOTHYROXINE 150 MCG TABLET PO SCH (06:19)
[2019-04-23] MEDS: MELOXICAM 7.5 MG TABLET PO SCH (09:56)
[2019-04-23] MEDS: GLIMEPIRIDE 4 MG TABLET PO SCH (09:56)
[2019-04-23] MEDS: ASPIRIN EC 81 MG TABLET PO SCH (09:57)
[2019-04-23] MEDS: OXYBUTYNIN XL 15 MG TABLET PO SCH (09:57)
[2019-04-23] MEDS: metOLazone 2.5 MG TABLET PO SCH (09:57)
[2019-04-23] MEDS: POTASSIUM CHLORIDE 10 MEQ TABLET PO SCH (09:58)
[2019-04-23] MEDS: ACETIC ACID 0.25% IRRIGATION 1,000 ML BOTTLE IRRIG SCH (09:58)
[2019-04-23] MEDS: GENTAMICIN 0.1% OINT 15 GM TUBE TOP SCH ×2 (09:59→14:30)
[2019-04-23] MEDS: amLODIPine 10 MG TABLET PO SCH (09:59)
[2019-04-23] MEDS: PANTOPRAZOLE 40 MG TABLET PO SCH (09:59)
[2019-04-23] MEDS ORDERED: TUBERCULIN SKIN TEST 0.1 ML SYRINGE INTRADERM ONE (12:00)
[2019-04-23] MEDS ORDERED: GENTAMICIN INJ 450 MG in SODIUM CHLORIDE 0.9% 100 ML IV SCH (14:00)
[2019-04-23 16:16] VITALS: BP 104/82
== END 2019-04-23 17:38 | DRG 580 ==
LOC: N.OR 05:56 → N.SDSINP 06:26 → N.3E 11:16
PROVIDERS: ADMIT Surgery; ATTEND Surgery

== ENCOUNTER 2019-06-04 00:08 | Inpatient (IN) ==
[2019-06-04] MEDS ORDERED: ONDANSETRON 4 MG/2 ML VIAL IV STA (01:37)
[2019-06-04] MEDS ORDERED: SODIUM CHLORIDE 0.9% 1,000 ML IV STA (01:37)
[2019-06-04] MEDS ORDERED: PROMETHAZINE INJ 12.5 MG in SODIUM CHLORIDE 0.9% 50 ML IV STA (01:38)
[2019-06-04 02:09] LABS: Basophils # 0.1 10*3/uL (0.0-0.2); Basophils % 0.5 % (0.0-0.8); Eosinophils # 0.2 10*3/uL (0.0-0.87); Eosinophils % 0.7 % (0.00-10.9); Hematocrit 39.5 VOL% (42.0-52.0); Hemoglobin 12.2 GM/DL (14.0-18.0); Immature Granulocytes % 0.5 %; Immature Granulocytes Absolute 0.12 #; Lymphocytes # 2.1 10*3/uL (1.4-4.0); Lymphocytes % 8.6 % (21.2-54.2); Mean Corpuscular HGB Conc 30.9 GM/DL (32-36); Mean Corpuscular Volume 87.6 FL (87-102); Mean Platelet Volume 9.3 FL (9.6-12.0); Monocytes % 4.5 % (1.7-12.7); Neutrophils % 85.2 % (38.7-73.9); Platelet Count 538 T/CUMM (130-400); Red Blood Count 4.51 MC/CUMM (3.8-5.5); Red Cell Distribution Width 15.1 % (9.3-17.3); White Blood Count 24.1 T/CUMM (4-12)
[2019-06-04 02:30] LABS: Albumin 2.6 G/DL (3.4-5.0); Bilirubin,Total 0.7 MG/DL (0.2-1.0); Calcium 9.4 MG/DL (8.5-10.1); Total Protein 8.3 G/DL (6.4-8.3)
[2019-06-04 02:32] LABS: Apearance,Urine CLOUDY (Clear); Bacteria,Urine Few /HPF (Few); Bilirubin,Urine Negative (Negative); Blood, Urine Moderate mg/dL (Negative); Glucose,Urine (UA) Negative (Negative); Hyaline Casts,Urine 29 /LPF (0-3); Ketones,Urine 5 mg/dL (Negative); Mucus,Urine Few /LPF (Occasional); Nitrite,Urine Negative (Negative); Protein,Urine 100 MG/DL; RBC,Urine 171 /HPF (0-4); Urine Color Yellow (Yellow); Urine Urobilinogen < 2.0 EU/DL (0.2-1.0); WBC,Urine 1739 /HPF (0-6)
[2019-06-04] MEDS ORDERED: LEVOFLOXACIN INJ 500 MG in PREMIX 1 EACH IV STA (02:36)
[2019-06-04 03:48] LABS: Total Cells Counted 100
[2019-06-04 03:49] LABS: Band Neutrophils 3 % (0-10); Lymphocytes 9 % (20-55); Platelet Estimate Increased; Segmented Neutrophils 83 % (50-85)
[2019-06-04 03:50] LABS: Anisocytosis Slight; Macrocytosis Slight
[2019-06-04] MEDS ORDERED: PROMETHAZINE INJ 12.5 MG in SODIUM CHLORIDE 0.9% 50 ML IV PRN (05:49)
[2019-06-04] MEDS ORDERED: MAGNESIUM SULF RIDER 4 GM in PREMIX 1 EACH IV PRN (05:49)
[2019-06-04] MEDS ORDERED: MAGNESIUM SULF RIDER 2 GM in PREMIX 1 EACH IV PRN (05:49)
[2019-06-04] MEDS ORDERED: GLUCAGON 1 MG VIAL IM PRN (05:49)
[2019-06-04] MEDS ORDERED: DEXTROSE 50% 25 GM/50 ML SYRINGE IV PRN (05:49)
[2019-06-04] MEDS: ENOXAPARIN 40 MG/0.4 ML SYRINGE SUBCUT SCH (06:32)
[2019-06-04] MEDS: SODIUM CHLORIDE 0.9% 1,000 ML IV SCH (06:32)
[2019-06-04] MEDS: INSULIN LISPRO 100 UNIT/ML SUBCUT SCH ×4 (07:55→21:49)
[2019-06-04] MEDS: ONDANSETRON 4 MG/2 ML VIAL IV PRN (21:58)
[2019-06-04] MEDS: ACETAMINOPHEN 325 MG TABLET PO PRN (22:09)
[2019-06-05] MEDS: SODIUM CHLORIDE 0.9% 1,000 ML IV SCH ×2 (00:05→15:31)
[2019-06-05] MEDS ORDERED: LEVOFLOXACIN INJ 500 MG in PREMIX 1 EACH IV SCH (05:00)
[2019-06-05] MEDS: ENOXAPARIN 40 MG/0.4 ML SYRINGE SUBCUT SCH (05:42)
[2019-06-05 06:58] LABS: Basophils # 0.1 10*3/uL (0.0-0.2); Basophils % 0.7 % (0.0-0.8); Eosinophils # 0.9 10*3/uL (0.0-0.87); Eosinophils % 4.7 % (0.00-10.9); Hematocrit 33.7 VOL% (42.0-52.0); Hemoglobin 10.3 GM/DL (14.0-18.0); Immature Granulocytes % 0.4 %; Immature Granulocytes Absolute 0.08 #; Lymphocytes # 2.3 10*3/uL (1.4-4.0); Lymphocytes % 12.6 % (21.2-54.2); Mean Corpuscular HGB Conc 30.6 GM/DL (32-36); Mean Corpuscular Volume 87.3 FL (87-102); Mean Platelet Volume 9.5 FL (9.6-12.0); Monocytes % 5.3 % (1.7-12.7); Neutrophils % 76.3 % (38.7-73.9); Platelet Count 410 T/CUMM (130-400); Red Blood Count 3.86 MC/CUMM (3.8-5.5); Red Cell Distribution Width 15.4 % (9.3-17.3); White Blood Count 18.4 T/CUMM (4-12)
[2019-06-05 07:33] LABS: Osmolality,Calculated 302.6 MOS/KG (273-304); Thyroid Stimulating Hormone 1.67 uIU/ml (0.358-3.74)
[2019-06-05] MEDS: INSULIN LISPRO 100 UNIT/ML SUBCUT SCH ×4 (09:23→21:06)
[2019-06-05] MEDS: VANCOMYCIN INJ 1,250 MG in SODIUM CHLORIDE 0.9% 250 ML IV SCH (13:36)
[2019-06-05] MEDS: cefTRIAXone 1,000 MG in SYRINGE 1 EACH IV SCH (17:07)
[2019-06-06] MEDS: VANCOMYCIN INJ 1,250 MG in SODIUM CHLORIDE 0.9% 250 ML IV SCH ×2 (00:58→12:24)
[2019-06-06] MEDS: ENOXAPARIN 40 MG/0.4 ML SYRINGE SUBCUT SCH (05:51)
[2019-06-06] MEDS: SODIUM CHLORIDE 0.9% 1,000 ML IV SCH (05:51)
[2019-06-06 07:04] LABS: Basophils # 0.1 10*3/uL (0.0-0.2); Basophils % 0.5 % (0.0-0.8); Hematocrit 30.5 VOL% (42.0-52.0); Hemoglobin 9.2 GM/DL (14.0-18.0); Immature Granulocytes % 0.5 %; Immature Granulocytes Absolute 0.08 #; Lymphocytes # 2.2 10*3/uL (1.4-4.0); Lymphocytes % 14.7 % (21.2-54.2); Mean Corpuscular HGB Conc 30.2 GM/DL (32-36); Mean Corpuscular Volume 89.4 FL (87-102); Mean Platelet Volume 9.2 FL (9.6-12.0); Monocytes % 6.6 % (1.7-12.7); Neutrophils % 70.7 % (38.7-73.9); Platelet Count 335 T/CUMM (130-400); Red Blood Count 3.41 MC/CUMM (3.8-5.5); Red Cell Distribution Width 14.9 % (9.3-17.3); White Blood Count 14.7 T/CUMM (4-12)
[2019-06-06 07:23] LABS: Calcium 8.5 MG/DL (8.5-10.1); Osmolality,Calculated 300.3 MOS/KG (273-304)
[2019-06-06] MEDS: INSULIN LISPRO 100 UNIT/ML SUBCUT SCH ×4 (09:02→22:19)
[2019-06-06] MEDS: FLUCONAZOLE 100 MG TABLET PO SCH (09:03)
[2019-06-06] MEDS: cefTRIAXone 1,000 MG in SYRINGE 1 EACH IV SCH (16:08)
[2019-06-06] MEDS ORDERED: SODIUM CHLORIDE 0.45% 1,000 ML IV SCH (21:00)
[2019-06-07] MEDS: VANCOMYCIN INJ 1,250 MG in SODIUM CHLORIDE 0.9% 250 ML IV SCH ×2 (01:47→18:04)
[2019-06-07 05:44] LABS: Basophils # 0.1 10*3/uL (0.0-0.2); Basophils % 0.5 % (0.0-0.8); Eosinophils % 7.6 % (0.00-10.9); Hemoglobin 8.6 GM/DL (14.0-18.0); Immature Granulocytes % 0.5 %; Immature Granulocytes Absolute 0.06 #; Lymphocytes # 2.6 10*3/uL (1.4-4.0); Lymphocytes % 19.7 % (21.2-54.2); Mean Corpuscular HGB Conc 29.7 GM/DL (32-36); Mean Corpuscular Volume 89.5 FL (87-102); Mean Platelet Volume 9.5 FL (9.6-12.0); Monocytes % 6.3 % (1.7-12.7); Neutrophils % 65.4 % (38.7-73.9); Platelet Count 344 T/CUMM (130-400); Red Blood Count 3.24 MC/CUMM (3.8-5.5); Red Cell Distribution Width 14.8 % (9.3-17.3); White Blood Count 13.3 T/CUMM (4-12)
[2019-06-07] MEDS: ENOXAPARIN 40 MG/0.4 ML SYRINGE SUBCUT SCH (05:58)
[2019-06-07 06:05] LABS: Calcium 7.6 MG/DL (8.5-10.1); Osmolality,Calculated 287.8 MOS/KG (273-304)
[2019-06-07] MEDS: INSULIN LISPRO 100 UNIT/ML SUBCUT SCH ×3 (08:23→18:05)
[2019-06-07] MEDS: FLUCONAZOLE 100 MG TABLET PO SCH (09:55)
[2019-06-07] MEDS: ONDANSETRON 4 MG/2 ML VIAL IV PRN (11:25)
[2019-06-07] MEDS: ACETAMINOPHEN 325 MG TABLET PO PRN (11:25)
[2019-06-07] MEDS ORDERED: POTASSIUM CHLORIDE 20 MEQ TABLET PO ONE (13:56)
[2019-06-07 16:00] VITALS: BP 122/72
== END 2019-06-07 18:34 | disposition home health service (06) | DRG 698 ==
LOC: EDBD → EDUNIT# → EDSEX → N.ED 00:08 → N.EDINP 03:48 → SUATTDRO 03:48 → N.3E 05:03
PROVIDERS: ADMIT Emergency Medicine; ATTEND Family Medicine

== ENCOUNTER 2020-02-27 17:16 | Inpatient (IN) ==
[2020-02-27] MEDS ORDERED: SODIUM CHLORIDE 0.9% 1,000 ML IV STA ×2 (18:16→19:42)
[2020-02-27 19:28] LABS: Basophils # 0.1 10*3/uL (0.0-0.2); Basophils % 0.5 % (0.0-0.8); Eosinophils # 0.6 10*3/uL (0.0-0.87); Eosinophils % 2.2 % (0.00-10.9); Hematocrit 35.1 VOL% (42.0-52.0); Immature Granulocytes % 0.7 %; Immature Granulocytes Absolute 0.18 #; Lymphocytes # 1.7 10*3/uL (1.4-4.0); Lymphocytes % 6.4 % (21.2-54.2); Mean Corpuscular HGB Conc 31.3 GM/DL (32-36); Mean Corpuscular Volume 86.9 FL (87-102); Mean Platelet Volume 9.4 FL (9.6-12.0); Monocytes % 5.1 % (1.7-12.7); Neutrophils % 85.1 % (38.7-73.9); Platelet Count 311 T/CUMM (130-400); Red Blood Count 4.04 MC/CUMM (3.8-5.5); Red Cell Distribution Width 14.4 % (9.3-17.3); White Blood Count 26.3 T/CUMM (4-12)
[2020-02-27 19:36] LABS: Alanine Aminotransferase 11 U/L (16-61); Albumin 2.8 G/DL (3.4-5.0); Alkaline Phosphatase 94 U/L (45-117); Aspartate Amino Transferase 9 U/L (0-37); Blood Urea Nitrogen 29 MG/DL (7-18); Calcium 8.8 MG/DL (8.5-10.1); Estimated Glom Filtration Rate 133 ML/MIN; Glucose 141 MG/DL (74-106); Osmolality,Calculated 290.1 MOS/KG (273-304); Total Protein 7.6 G/DL (6.4-8.3)
[2020-02-27] MEDS ORDERED: SODIUM CHLORIDE 0.9% 2,000 ML IV STA (19:42)
[2020-02-27 19:54] LABS: Eosinophils 1 % (0-10); Lymphocytes 9 % (20-55); Segmented Neutrophils 86 % (50-85); Total Cells Counted 100
[2020-02-27 19:55] LABS: Platelet Estimate Normal
[2020-02-27 19:56] LABS: Hypochromasia Slight; Polychromasia Slight
[2020-02-27] MEDS ORDERED: ONDANSETRON 4 MG/2 ML VIAL IV PRN (20:28)
[2020-02-27] MEDS ORDERED: DEXTROSE 50% 25 GM/50 ML VIAL IV PRN (20:28)
[2020-02-27] MEDS ORDERED: GLUCAGON 1 MG VIAL IM PRN (20:28)
[2020-02-27] MEDS: ENOXAPARIN 40 MG/0.4 ML SYRINGE SUBCUT SCH (21:30)
[2020-02-27] MEDS ORDERED: metOLazone 2.5 MG TABLET PO PRN (21:53)
[2020-02-27] MEDS ORDERED: POTASSIUM CHLORIDE 10 MEQ TABLET PO PRN (21:53)
[2020-02-28] MEDS: oxyCODONE/ACETAMINOPHEN 5-325 MG TABLET PO SCH ×4 (00:02→22:25)
[2020-02-28 01:20] LABS: Bilirubin,Urine Negative (Negative); Blood, Urine Small mg/dL (Negative); Glucose,Urine (UA) Negative (Negative); Ketones,Urine Negative (Negative); Mucus,Urine Occasional /LPF (Occasional); Nitrite,Urine Negative (Negative); Protein,Urine Negative; RBC,Urine 11 /HPF (0-4); Squamous Epithelial Cell,Urine Occasional /HPF (0-10); Urine Appearance Slightly Hazy (Clear); Urine Color Yellow (Yellow); Urine Specific Gravity 1.011 (1.001-1.035); Urine Urobilinogen < 2.0 EU/DL (0.2-1.0); WBC,Urine 22 /HPF (0-6)
[2020-02-28] MEDS: LEVOTHYROXINE 150 MCG TABLET PO SCH (06:00)
[2020-02-28 07:47] LABS: Basophils # 0.1 10*3/uL (0.0-0.2); Basophils % 0.5 % (0.0-0.8); Eosinophils # 0.7 10*3/uL (0.0-0.87); Eosinophils % 3.1 % (0.00-10.9); Hemoglobin 10.2 GM/DL (14.0-18.0); Immature Granulocytes % 0.6 %; Immature Granulocytes Absolute 0.12 #; Lymphocytes # 2.1 10*3/uL (1.4-4.0); Mean Corpuscular HGB Conc 31.9 GM/DL (32-36); Mean Corpuscular Volume 85.6 FL (87-102); Mean Platelet Volume 8.9 FL (9.6-12.0); Monocytes % 5.2 % (1.7-12.7); Neutrophils % 80.6 % (38.7-73.9); Platelet Count 268 T/CUMM (130-400); Red Blood Count 3.74 MC/CUMM (3.8-5.5); Red Cell Distribution Width 14.4 % (9.3-17.3); White Blood Count 21.1 T/CUMM (4-12)
[2020-02-28] MEDS ORDERED: GLIMEPIRIDE 4 MG TABLET PO SCH (08:00)
[2020-02-28 08:09] LABS: Albumin 2.6 G/DL (3.4-5.0); Bilirubin,Total 0.7 MG/DL (0.2-1.0); Calcium 8.4 MG/DL (8.5-10.1); Total Protein 7.1 G/DL (6.4-8.3)
[2020-02-28] MEDS: amLODIPine 10 MG TABLET PO SCH (08:31)
[2020-02-28] MEDS: BACLOFEN 10 MG TABLET PO SCH ×3 (08:31→22:23)
[2020-02-28] MEDS: ASPIRIN EC 81 MG TABLET PO SCH (08:31)
[2020-02-28] MEDS: OXYBUTYNIN XL 15 MG TABLET PO SCH (08:31)
[2020-02-28] MEDS ORDERED: PANTOPRAZOLE 40 MG TABLET PO SCH (09:00)
[2020-02-28] MEDS ORDERED: oxyCODONE/ACETAMINOPHEN 5-325 MG TABLET PO SCH (09:00)
[2020-02-28 09:02] LABS: Hypochromasia 1+; Microcytosis 1+
[2020-02-28 09:03] LABS: Platelet Estimate Normal; Spherocytes Slight
[2020-02-28] MEDS ORDERED: DEXTROSE 50% 25 GM/50 ML VIAL IV PRN (09:48)
[2020-02-28] MEDS ORDERED: GLUCAGON 1 MG VIAL IM PRN (09:48)
[2020-02-28] MEDS: DEXTROSE 5% 1,000 ML IV SCH (11:40)
[2020-02-28] MEDS: cefTRIAXone 2,000 MG in SYRINGE 1 EACH IV SCH (11:43)
[2020-02-28] MEDS: INSULIN REGULAR 100 UNIT/ML SUBCUT SCH ×3 (11:48→22:22)
[2020-02-28] MEDS: ZINC OXIDE PASTE 113 GM TUBE TOP SCH (22:22)
[2020-02-28] MEDS: ENOXAPARIN 40 MG/0.4 ML SYRINGE SUBCUT SCH (22:23)
[2020-02-29] MEDS: DEXTROSE 5% 1,000 ML IV SCH ×2 (01:37→13:42)
[2020-02-29] MEDS ORDERED: SODIUM CHLORIDE 0.9% 500 ML IV ONE (01:40)
[2020-02-29] MEDS: LEVOTHYROXINE 150 MCG TABLET PO SCH (06:01)
[2020-02-29] MEDS: INSULIN REGULAR 100 UNIT/ML SUBCUT SCH ×4 (07:38→21:35)
[2020-02-29] MEDS: oxyCODONE/ACETAMINOPHEN 5-325 MG TABLET PO SCH ×3 (08:35→20:47)
[2020-02-29] MEDS: BACLOFEN 10 MG TABLET PO SCH ×3 (08:35→20:47)
[2020-02-29] MEDS: ZINC OXIDE PASTE 113 GM TUBE TOP SCH (08:35)
[2020-02-29] MEDS: ASPIRIN EC 81 MG TABLET PO SCH (08:35)
[2020-02-29] MEDS: amLODIPine 10 MG TABLET PO SCH (08:35)
[2020-02-29] MEDS: OXYBUTYNIN XL 15 MG TABLET PO SCH (08:35)
[2020-02-29] MEDS: cefTRIAXone 2,000 MG in SYRINGE 1 EACH IV SCH (08:37)
[2020-02-29] MEDS: VANCOMYCIN INJ 1,500 MG in SODIUM CHLORIDE 0.9% 250 ML IV SCH (13:39)
[2020-02-29] MEDS: ENOXAPARIN 40 MG/0.4 ML SYRINGE SUBCUT SCH (20:47)
[2020-03-01] MEDS: VANCOMYCIN INJ 1,500 MG in SODIUM CHLORIDE 0.9% 250 ML IV SCH (01:18)
[2020-03-01] MEDS: ZINC OXIDE PASTE 113 GM TUBE TOP SCH ×3 (01:19→20:58)
[2020-03-01] MEDS: DEXTROSE 5% 1,000 ML IV SCH ×2 (03:18→17:12)
[2020-03-01] MEDS: LEVOTHYROXINE 150 MCG TABLET PO SCH (05:36)
[2020-03-01] MEDS: INSULIN REGULAR 100 UNIT/ML SUBCUT SCH ×4 (08:01→21:06)
[2020-03-01] MEDS: amLODIPine 10 MG TABLET PO SCH (09:19)
[2020-03-01] MEDS: BACLOFEN 10 MG TABLET PO SCH ×3 (09:19→21:00)
[2020-03-01] MEDS: OXYBUTYNIN XL 15 MG TABLET PO SCH (09:19)
[2020-03-01] MEDS: oxyCODONE/ACETAMINOPHEN 5-325 MG TABLET PO SCH ×3 (09:19→20:59)
[2020-03-01] MEDS: ASPIRIN EC 81 MG TABLET PO SCH (09:19)
[2020-03-01] MEDS: cefTRIAXone 2,000 MG in SYRINGE 1 EACH IV SCH (09:21)
[2020-03-01] MEDS: VANCOMYCIN INJ 1,500 MG in SODIUM CHLORIDE 0.9% 500 ML IV SCH (12:55)
[2020-03-01] MEDS: ENOXAPARIN 40 MG/0.4 ML SYRINGE SUBCUT SCH (20:59)
[2020-03-02 00:51] LABS: Basophils # 0.1 10*3/uL (0.0-0.2); Basophils % 0.7 % (0.0-0.8); Eosinophils # 0.6 10*3/uL (0.0-0.87); Eosinophils % 6.8 % (0.00-10.9); Hematocrit 31.1 VOL% (42.0-52.0); Hemoglobin 9.8 GM/DL (14.0-18.0); Immature Granulocytes % 0.8 %; Immature Granulocytes Absolute 0.07 #; Lymphocytes # 1.3 10*3/uL (1.4-4.0); Lymphocytes % 13.9 % (21.2-54.2); Mean Corpuscular HGB Conc 31.5 GM/DL (32-36); Mean Corpuscular Volume 85.7 FL (87-102); Mean Platelet Volume 9.3 FL (9.6-12.0); Monocytes % 7.3 % (1.7-12.7); Neutrophils % 70.5 % (38.7-73.9); Platelet Count 238 T/CUMM (130-400); Red Blood Count 3.63 MC/CUMM (3.8-5.5); Red Cell Distribution Width 13.9 % (9.3-17.3); White Blood Count 9.2 T/CUMM (4-12)
[2020-03-02 00:58] LABS: Calcium 8.4 MG/DL (8.5-10.1); Osmolality,Calculated 280.5 MOS/KG (273-304)
[2020-03-02] MEDS: VANCOMYCIN INJ 1,500 MG in SODIUM CHLORIDE 0.9% 500 ML IV SCH ×2 (01:06→12:53)
[2020-03-02] MEDS: LEVOTHYROXINE 150 MCG TABLET PO SCH (05:20)
[2020-03-02] MEDS: DEXTROSE 5% 1,000 ML IV SCH ×2 (07:47→09:34)
[2020-03-02] MEDS: INSULIN REGULAR 100 UNIT/ML SUBCUT SCH ×4 (08:49→22:04)
[2020-03-02] MEDS: ZINC OXIDE PASTE 113 GM TUBE TOP SCH ×2 (09:33→22:10)
[2020-03-02] MEDS: BACLOFEN 10 MG TABLET PO SCH ×3 (09:35→22:10)
[2020-03-02] MEDS: amLODIPine 10 MG TABLET PO SCH (09:35)
[2020-03-02] MEDS: OXYBUTYNIN XL 15 MG TABLET PO SCH (09:35)
[2020-03-02] MEDS: ASPIRIN EC 81 MG TABLET PO SCH (09:35)
[2020-03-02] MEDS: oxyCODONE/ACETAMINOPHEN 5-325 MG TABLET PO SCH ×3 (09:36→22:09)
[2020-03-02] MEDS ORDERED: SODIUM CHLORIDE 0.9% 100 ML IV ONE (12:41)
[2020-03-02] MEDS: cefTRIAXone 2,000 MG in SYRINGE 1 EACH IV SCH (12:53)
[2020-03-02] MEDS: ENOXAPARIN 40 MG/0.4 ML SYRINGE SUBCUT SCH (22:09)
[2020-03-03] MEDS: DEXTROSE 5% 1,000 ML IV SCH ×3 (01:00→22:23)
[2020-03-03] MEDS: VANCOMYCIN INJ 1,500 MG in SODIUM CHLORIDE 0.9% 500 ML IV SCH ×2 (01:55→13:32)
[2020-03-03 04:50] LABS: Basophils # 0.1 10*3/uL (0.0-0.2); Basophils % 0.5 % (0.0-0.8); Eosinophils # 0.8 10*3/uL (0.0-0.87); Eosinophils % 8.1 % (0.00-10.9); Hematocrit 30.8 VOL% (42.0-52.0); Hemoglobin 9.7 GM/DL (14.0-18.0); Immature Granulocytes % 0.5 %; Immature Granulocytes Absolute 0.05 #; Lymphocytes # 1.6 10*3/uL (1.4-4.0); Lymphocytes % 16.6 % (21.2-54.2); Mean Corpuscular HGB Conc 31.5 GM/DL (32-36); Mean Corpuscular Volume 85.3 FL (87-102); Mean Platelet Volume 9.4 FL (9.6-12.0); Monocytes % 10.8 % (1.7-12.7); Neutrophils % 63.5 % (38.7-73.9); Platelet Count 242 T/CUMM (130-400); Red Blood Count 3.61 MC/CUMM (3.8-5.5); White Blood Count 9.8 T/CUMM (4-12)
[2020-03-03 05:20] LABS: Calcium 8.6 MG/DL (8.5-10.1); Osmolality,Calculated 283.3 MOS/KG (273-304)
[2020-03-03] MEDS: LEVOTHYROXINE 150 MCG TABLET PO SCH (06:45)
[2020-03-03] MEDS: INSULIN REGULAR 100 UNIT/ML SUBCUT SCH ×4 (07:37→21:41)
[2020-03-03] MEDS ORDERED: SODIUM CHLORIDE 0.9% 100 ML IV ONE (07:53)
[2020-03-03] MEDS: cefTRIAXone 2,000 MG in SYRINGE 1 EACH IV SCH (08:39)
[2020-03-03] MEDS: ZINC OXIDE PASTE 113 GM TUBE TOP SCH ×2 (08:40→21:23)
[2020-03-03] MEDS: amLODIPine 10 MG TABLET PO SCH (08:41)
[2020-03-03] MEDS: ASPIRIN EC 81 MG TABLET PO SCH (08:41)
[2020-03-03] MEDS: OXYBUTYNIN XL 15 MG TABLET PO SCH (08:41)
[2020-03-03] MEDS: BACLOFEN 10 MG TABLET PO SCH ×3 (08:42→21:17)
[2020-03-03] MEDS: oxyCODONE/ACETAMINOPHEN 5-325 MG TABLET PO SCH ×3 (08:43→21:18)
[2020-03-03] MEDS ORDERED: diphenhydrAMINE CAP 25 MG CAPSULE PO PRN (14:26)
[2020-03-03] MEDS: ENOXAPARIN 40 MG/0.4 ML SYRINGE SUBCUT SCH (21:19)
[2020-03-04] MEDS: VANCOMYCIN INJ 1,500 MG in SODIUM CHLORIDE 0.9% 500 ML IV SCH (01:25)
[2020-03-04] MEDS: LEVOTHYROXINE 150 MCG TABLET PO SCH (07:17)
[2020-03-04] MEDS: INSULIN REGULAR 100 UNIT/ML SUBCUT SCH ×4 (09:34→21:24)
[2020-03-04] MEDS: OXYBUTYNIN XL 15 MG TABLET PO SCH (09:36)
[2020-03-04] MEDS: cefTRIAXone 2,000 MG in SYRINGE 1 EACH IV SCH (09:36)
[2020-03-04] MEDS: oxyCODONE/ACETAMINOPHEN 5-325 MG TABLET PO SCH ×3 (09:36→21:22)
[2020-03-04] MEDS: amLODIPine 10 MG TABLET PO SCH (09:36)
[2020-03-04] MEDS: BACLOFEN 10 MG TABLET PO SCH ×3 (09:36→21:21)
[2020-03-04] MEDS: ASPIRIN EC 81 MG TABLET PO SCH (09:36)
[2020-03-04] MEDS: ZINC OXIDE PASTE 113 GM TUBE TOP SCH ×2 (09:57→21:31)
[2020-03-04] MEDS: DEXTROSE 5% 1,000 ML IV SCH (11:59)
[2020-03-04] MEDS: ENOXAPARIN 40 MG/0.4 ML SYRINGE SUBCUT SCH (21:22)
[2020-03-05] MEDS: DEXTROSE 5% 1,000 ML IV SCH ×2 (01:19→14:13)
[2020-03-05] MEDS: LEVOTHYROXINE 150 MCG TABLET PO SCH (06:28)
[2020-03-05 07:14] LABS: Basophils # 0.1 10*3/uL (0.0-0.2); Basophils % 0.5 % (0.0-0.8); Eosinophils % 9.6 % (0.00-10.9); Hematocrit 33.4 VOL% (42.0-52.0); Hemoglobin 10.2 GM/DL (14.0-18.0); Immature Granulocytes % 0.6 %; Immature Granulocytes Absolute 0.07 #; Lymphocytes # 2.5 10*3/uL (1.4-4.0); Mean Corpuscular HGB Conc 30.5 GM/DL (32-36); Mean Corpuscular Volume 87.4 FL (87-102); Monocytes % 7.4 % (1.7-12.7); Neutrophils % 58.9 % (38.7-73.9); Platelet Count 254 T/CUMM (130-400); Red Blood Count 3.82 MC/CUMM (3.8-5.5); Red Cell Distribution Width 13.5 % (9.3-17.3); White Blood Count 10.8 T/CUMM (4-12)
[2020-03-05 07:35] LABS: Osmolality,Calculated 284.1 MOS/KG (273-304)
[2020-03-05 07:45] LABS: Eosinophils 12 % (0-10); Hypochromasia 1+; Lymphocytes 20 % (20-55); Microcytosis 1+; Platelet Estimate Adequate; Segmented Neutrophils 59 % (50-85); Total Cells Counted 100
[2020-03-05] MEDS: OXYBUTYNIN XL 15 MG TABLET PO SCH (08:42)
[2020-03-05] MEDS: oxyCODONE/ACETAMINOPHEN 5-325 MG TABLET PO SCH ×3 (08:42→21:16)
[2020-03-05] MEDS: ZINC OXIDE PASTE 113 GM TUBE TOP SCH ×2 (08:42→21:19)
[2020-03-05] MEDS: BACLOFEN 10 MG TABLET PO SCH ×3 (08:42→21:16)
[2020-03-05] MEDS: ASPIRIN EC 81 MG TABLET PO SCH (08:42)
[2020-03-05] MEDS: INSULIN REGULAR 100 UNIT/ML SUBCUT SCH ×4 (08:46→21:18)
[2020-03-05] MEDS: amLODIPine 10 MG TABLET PO SCH (08:46)
[2020-03-05] MEDS: cefTRIAXone 2,000 MG in SYRINGE 1 EACH IV SCH (09:22)
[2020-03-05] MEDS: ENOXAPARIN 40 MG/0.4 ML SYRINGE SUBCUT SCH (21:17)
[2020-03-06] MEDS: DEXTROSE 5% 1,000 ML IV SCH (03:08)
[2020-03-06 05:40] LABS: Basophils # 0.1 10*3/uL (0.0-0.2); Basophils % 0.6 % (0.0-0.8); Eosinophils # 1.1 10*3/uL (0.0-0.87); Eosinophils % 10.6 % (0.00-10.9); Hematocrit 31.6 VOL% (42.0-52.0); Immature Granulocytes % 0.8 %; Immature Granulocytes Absolute 0.08 #; Lymphocytes # 2.4 10*3/uL (1.4-4.0); Lymphocytes % 23.5 % (21.2-54.2); Mean Corpuscular HGB Conc 31.6 GM/DL (32-36); Mean Corpuscular Volume 84.7 FL (87-102); Mean Platelet Volume 9.1 FL (9.6-12.0); Monocytes % 5.7 % (1.7-12.7); Neutrophils % 58.8 % (38.7-73.9); Platelet Count 312 T/CUMM (130-400); Red Blood Count 3.73 MC/CUMM (3.8-5.5); Red Cell Distribution Width 13.6 % (9.3-17.3); White Blood Count 10.1 T/CUMM (4-12)
[2020-03-06 06:05] LABS: Eosinophils 11 % (0-10); Lymphocytes 24 % (20-55); Platelet Estimate Normal; Segmented Neutrophils 61 % (50-85); Total Cells Counted 100
[2020-03-06 06:15] LABS: Calcium 8.8 MG/DL (8.5-10.1); Osmolality,Calculated 282.4 MOS/KG (273-304)
[2020-03-06] MEDS: LEVOTHYROXINE 150 MCG TABLET PO SCH (06:15)
[2020-03-06] MEDS: INSULIN REGULAR 100 UNIT/ML SUBCUT SCH ×2 (07:37→11:30)
[2020-03-06] MEDS: oxyCODONE/ACETAMINOPHEN 5-325 MG TABLET PO SCH ×2 (09:03→15:28)
[2020-03-06] MEDS: ASPIRIN EC 81 MG TABLET PO SCH (09:03)
[2020-03-06] MEDS: ZINC OXIDE PASTE 113 GM TUBE TOP SCH (09:04)
[2020-03-06] MEDS: OXYBUTYNIN XL 15 MG TABLET PO SCH (09:04)
[2020-03-06] MEDS: cefTRIAXone 2,000 MG in SYRINGE 1 EACH IV SCH (09:04)
[2020-03-06] MEDS: BACLOFEN 10 MG TABLET PO SCH ×2 (09:04→15:28)
[2020-03-06] MEDS: amLODIPine 10 MG TABLET PO SCH (09:04)
[2020-03-06 11:54] VITALS: BP 163/89
== END 2020-03-06 16:06 | disposition home health service (06) | DRG 689 ==
LOC: N.EDINP 17:16 → N.ED 17:16 → N.5E 21:57 → SUATTDRO 02-28 10:17
PROVIDERS: ADMIT Emergency Medicine; ATTEND Internal Medicine

== ENCOUNTER 2020-03-11 20:04 | Inpatient (IN) ==
[2020-03-12 01:16] LABS: Basophils # 0.1 10*3/uL (0.0-0.2); Basophils % 0.5 % (0.0-0.8); Eosinophils # 0.9 10*3/uL (0.0-0.87); Eosinophils % 5.4 % (0.00-10.9); Hemoglobin 9.9 GM/DL (14.0-18.0); Immature Granulocytes % 0.3 %; Immature Granulocytes Absolute 0.06 #; Lymphocytes # 2.5 10*3/uL (1.4-4.0); Lymphocytes % 14.3 % (21.2-54.2); Mean Corpuscular Volume 88.9 FL (87-102); Monocytes % 5.8 % (1.7-12.7); Neutrophils % 73.7 % (38.7-73.9); Platelet Count 347 T/CUMM (130-400); Red Blood Count 3.71 MC/CUMM (3.8-5.5); Red Cell Distribution Width 14.5 % (9.3-17.3); White Blood Count 17.5 T/CUMM (4-12)
[2020-03-12 01:28] LABS: Bilirubin,Urine Negative (Negative); Blood, Urine Negative (Negative); Glucose,Urine (UA) Negative (Negative); Hyaline Casts,Urine 4 /LPF (0-3); Ketones,Urine Negative (Negative); Mucus,Urine Occasional /LPF (Occasional); Nitrite,Urine Negative (Negative); Protein,Urine Negative; RBC,Urine 13 /HPF (0-4); Urine Appearance CLOUDY (Clear); Urine Color Yellow (Yellow); Urine Specific Gravity 1.019 (1.001-1.035); Urine Urobilinogen < 2.0 EU/DL (0.2-1.0); WBC,Urine 332 /HPF (0-6)
[2020-03-12 02:09] LABS: Albumin 2.2 G/DL (3.4-5.0); Bilirubin,Total 0.5 MG/DL (0.2-1.0); Calcium 7.6 MG/DL (8.5-10.1); Osmolality,Calculated 288.8 MOS/KG (273-304); Potassium 3.7 MMOL/L (3.5-5.1); Total Protein 6.2 G/DL (6.4-8.3)
[2020-03-12] MEDS ORDERED: LEVOFLOXACIN INJ 750 MG in PREMIX 1 EACH IV STA (02:11)
[2020-03-12] MEDS ORDERED: ACETAMINOPHEN 325 MG TABLET PO PRN (04:58)
[2020-03-12] MEDS ORDERED: GLUCAGON 1 MG VIAL IM PRN (04:58)
[2020-03-12] MEDS ORDERED: DEXTROSE 50% 25 GM/50 ML VIAL IV PRN (04:58)
[2020-03-12] MEDS ORDERED: ONDANSETRON 4 MG/2 ML VIAL IV PRN (05:08)
[2020-03-12] MEDS ORDERED: POTASSIUM CHLORIDE 10 MEQ TABLET PO PRN (05:13)
[2020-03-12] MEDS: metroNIDAZOLE INJ 500 MG in PREMIX 1 EACH IV SCH ×3 (05:44→22:09)
[2020-03-12] MEDS: LEVOTHYROXINE 75 MCG TABLET PO SCH (05:44)
[2020-03-12] MEDS: LACTULOSE 20 GM/30 ML UDCUP PO SCH ×5 (06:35→21:55)
[2020-03-12] MEDS: INSULIN LISPRO 100 UNIT/ML SUBCUT SCH ×4 (07:33→21:56)
[2020-03-12] MEDS: ENOXAPARIN 40 MG/0.4 ML SYRINGE SUBCUT SCH (08:19)
[2020-03-12] MEDS: ASPIRIN EC 81 MG TABLET PO SCH (08:58)
[2020-03-12] MEDS: oxyCODONE/ACETAMINOPHEN 5-325 MG TABLET PO SCH ×3 (08:58→21:55)
[2020-03-12] MEDS: amLODIPine 10 MG TABLET PO SCH (08:58)
[2020-03-12] MEDS: OXYBUTYNIN XL 15 MG TABLET PO SCH (08:58)
[2020-03-12] MEDS: BACLOFEN 10 MG TABLET PO SCH ×3 (10:06→21:56)
[2020-03-12] MEDS: ZINC OXIDE PASTE 113 GM TUBE TOP SCH ×2 (10:06→22:10)
[2020-03-12] MEDS: POLYETHYLENE GLYCOL POWDER 17 GM PACK PO SCH ×2 (14:16→21:56)
[2020-03-12] MEDS: CIPROFLOXACIN INJ 400 MG in PREMIX 1 EACH IV SCH (16:12)
[2020-03-13] MEDS: LACTULOSE 20 GM/30 ML UDCUP PO SCH ×6 (02:00→21:45)
[2020-03-13] MEDS: CIPROFLOXACIN INJ 400 MG in PREMIX 1 EACH IV SCH ×2 (04:11→17:01)
[2020-03-13] MEDS: metroNIDAZOLE INJ 500 MG in PREMIX 1 EACH IV SCH ×3 (05:14→21:54)
[2020-03-13] MEDS: LEVOTHYROXINE 75 MCG TABLET PO SCH (06:17)
[2020-03-13] MEDS: INSULIN LISPRO 100 UNIT/ML SUBCUT SCH ×4 (06:50→21:46)
[2020-03-13 07:26] LABS: Calcium 8.8 MG/DL (8.5-10.1); Osmolality,Calculated 286.1 MOS/KG (273-304); Potassium 3.8 MMOL/L (3.5-5.1)
[2020-03-13 07:44] LABS: Basophils # 0.1 10*3/uL (0.0-0.2); Basophils % 0.8 % (0.0-0.8); Eosinophils # 0.9 10*3/uL (0.0-0.87); Eosinophils % 7.2 % (0.00-10.9); Hematocrit 33.1 VOL% (42.0-52.0); Immature Granulocytes % 0.4 %; Immature Granulocytes Absolute 0.05 #; Lymphocytes # 2.3 10*3/uL (1.4-4.0); Lymphocytes % 18.5 % (21.2-54.2); Mean Corpuscular HGB Conc 30.2 GM/DL (32-36); Mean Corpuscular Volume 88.5 FL (87-102); Mean Platelet Volume 9.4 FL (9.6-12.0); Neutrophils % 67.1 % (38.7-73.9); Platelet Count 332 T/CUMM (130-400); Red Blood Count 3.74 MC/CUMM (3.8-5.5); Red Cell Distribution Width 14.6 % (9.3-17.3); White Blood Count 12.5 T/CUMM (4-12)
[2020-03-13] MEDS: OXYBUTYNIN XL 15 MG TABLET PO SCH (08:02)
[2020-03-13] MEDS: POLYETHYLENE GLYCOL POWDER 17 GM PACK PO SCH ×2 (08:02→21:46)
[2020-03-13] MEDS: oxyCODONE/ACETAMINOPHEN 5-325 MG TABLET PO SCH ×3 (08:02→21:45)
[2020-03-13] MEDS: ASPIRIN EC 81 MG TABLET PO SCH (08:02)
[2020-03-13] MEDS: ENOXAPARIN 40 MG/0.4 ML SYRINGE SUBCUT SCH (08:03)
[2020-03-13] MEDS: ZINC OXIDE PASTE 113 GM TUBE TOP SCH (08:03)
[2020-03-13] MEDS: BACLOFEN 10 MG TABLET PO SCH ×3 (08:03→21:47)
[2020-03-13] MEDS: amLODIPine 10 MG TABLET PO SCH (08:03)
[2020-03-13] MEDS: DESITIN 4OZ/NYSTATIN 15 GRAM MIXTURE PASTE TOP SCH (21:45)
[2020-03-14] MEDS: ZINC OXIDE PASTE 113 GM TUBE TOP SCH ×3 (02:55→20:56)
[2020-03-14] MEDS: CIPROFLOXACIN INJ 400 MG in PREMIX 1 EACH IV SCH ×2 (04:36→15:53)
[2020-03-14] MEDS: metroNIDAZOLE INJ 500 MG in PREMIX 1 EACH IV SCH ×3 (04:37→21:05)
[2020-03-14] MEDS: LACTULOSE 20 GM/30 ML UDCUP PO SCH ×2 (04:39→06:36)
[2020-03-14] MEDS: LEVOTHYROXINE 175 MCG TABLET PO SCH (06:36)
[2020-03-14 07:03] LABS: Basophils # 0.1 10*3/uL (0.0-0.2); Basophils % 1.1 % (0.0-0.8); Eosinophils # 1.2 10*3/uL (0.0-0.87); Eosinophils % 10.4 % (0.00-10.9); Hematocrit 32.6 VOL% (42.0-52.0); Hemoglobin 9.7 GM/DL (14.0-18.0); Immature Granulocytes % 0.3 %; Immature Granulocytes Absolute 0.03 #; Lymphocytes # 2.3 10*3/uL (1.4-4.0); Lymphocytes % 19.4 % (21.2-54.2); Mean Corpuscular HGB Conc 29.8 GM/DL (32-36); Mean Corpuscular Volume 89.8 FL (87-102); Mean Platelet Volume 9.7 FL (9.6-12.0); Monocytes % 5.9 % (1.7-12.7); Neutrophils % 62.9 % (38.7-73.9); Platelet Count 356 T/CUMM (130-400); Red Blood Count 3.63 MC/CUMM (3.8-5.5); Red Cell Distribution Width 14.6 % (9.3-17.3); White Blood Count 11.6 T/CUMM (4-12)
[2020-03-14 07:57] LABS: Calcium 8.7 MG/DL (8.5-10.1); Osmolality,Calculated 286.1 MOS/KG (273-304); Potassium 3.8 MMOL/L (3.5-5.1)
[2020-03-14] MEDS: INSULIN LISPRO 100 UNIT/ML SUBCUT SCH ×4 (07:59→20:58)
[2020-03-14] MEDS: ENOXAPARIN 40 MG/0.4 ML SYRINGE SUBCUT SCH (08:51)
[2020-03-14] MEDS: BACLOFEN 10 MG TABLET PO SCH ×3 (08:52→20:56)
[2020-03-14] MEDS: OXYBUTYNIN XL 15 MG TABLET PO SCH (08:52)
[2020-03-14] MEDS: oxyCODONE/ACETAMINOPHEN 5-325 MG TABLET PO SCH ×3 (08:52→20:57)
[2020-03-14] MEDS: ASPIRIN EC 81 MG TABLET PO SCH (08:52)
[2020-03-14] MEDS: amLODIPine 10 MG TABLET PO SCH (08:52)
[2020-03-14] MEDS: DESITIN 4OZ/NYSTATIN 15 GRAM MIXTURE PASTE TOP SCH ×2 (09:23→20:58)
[2020-03-14 09:32] LABS: Band Neutrophils 1 % (0-10); Eosinophils 11 % (0-10); Lymphocytes 9 % (20-55); Platelet Estimate Normal; Segmented Neutrophils 72 % (50-85); Total Cells Counted 100
[2020-03-14] MEDS ORDERED: BISACODYL 5 MG TABLET PO ONE (12:00)
[2020-03-14] MEDS ORDERED: FLUCONAZOLE 200 MG TABLET PO ONE (12:32)
[2020-03-14] MEDS ORDERED: POLYETHYLENE GLYCOL POWDER 255 GM BOTTLE PO ONE (18:00)
[2020-03-15] MEDS: metroNIDAZOLE INJ 500 MG in PREMIX 1 EACH IV SCH ×3 (04:41→20:31)
[2020-03-15] MEDS: CIPROFLOXACIN INJ 400 MG in PREMIX 1 EACH IV SCH ×2 (04:41→15:31)
[2020-03-15 06:11] LABS: Basophils # 0.1 10*3/uL (0.0-0.2); Basophils % 0.8 % (0.0-0.8); Eosinophils # 1.1 10*3/uL (0.0-0.87); Eosinophils % 10.9 % (0.00-10.9); Hematocrit 34.6 VOL% (42.0-52.0); Hemoglobin 10.5 GM/DL (14.0-18.0); Immature Granulocytes % 0.4 %; Immature Granulocytes Absolute 0.04 #; Lymphocytes % 20.6 % (21.2-54.2); Mean Corpuscular HGB Conc 30.3 GM/DL (32-36); Mean Corpuscular Volume 88.7 FL (87-102); Mean Platelet Volume 9.4 FL (9.6-12.0); Monocytes % 6.5 % (1.7-12.7); Neutrophils % 60.8 % (38.7-73.9); Platelet Count 384 T/CUMM (130-400); Red Cell Distribution Width 14.6 % (9.3-17.3); White Blood Count 9.7 T/CUMM (4-12)
[2020-03-15] MEDS: LEVOTHYROXINE 175 MCG TABLET PO SCH (06:26)
[2020-03-15 06:31] LABS: Calcium 8.8 MG/DL (8.5-10.1); Osmolality,Calculated 283.3 MOS/KG (273-304); Potassium 3.7 MMOL/L (3.5-5.1)
[2020-03-15] MEDS: INSULIN LISPRO 100 UNIT/ML SUBCUT SCH ×4 (07:59→20:33)
[2020-03-15] MEDS: ASPIRIN EC 81 MG TABLET PO SCH (08:52)
[2020-03-15] MEDS: OXYBUTYNIN XL 15 MG TABLET PO SCH (08:52)
[2020-03-15] MEDS: FLUCONAZOLE 100 MG TABLET PO SCH (08:52)
[2020-03-15] MEDS: BACLOFEN 10 MG TABLET PO SCH ×3 (08:53→20:31)
[2020-03-15] MEDS: amLODIPine 10 MG TABLET PO SCH (08:53)
[2020-03-15] MEDS: ENOXAPARIN 40 MG/0.4 ML SYRINGE SUBCUT SCH (08:54)
[2020-03-15] MEDS: oxyCODONE/ACETAMINOPHEN 5-325 MG TABLET PO SCH ×3 (08:54→20:31)
[2020-03-15] MEDS: ZINC OXIDE PASTE 113 GM TUBE TOP SCH ×2 (08:55→20:31)
[2020-03-15] MEDS: DESITIN 4OZ/NYSTATIN 15 GRAM MIXTURE PASTE TOP SCH ×2 (08:55→20:31)
[2020-03-15] MEDS ORDERED: POLYETHYLENE GLYCOL POWDER 255 GM BOTTLE PO ONE (12:00)
[2020-03-15] MEDS: SODIUM CHLORIDE 0.9% 1,000 ML IV SCH (15:31)
[2020-03-16] MEDS: SODIUM CHLORIDE 0.9% 1,000 ML IV SCH ×3 (03:13→18:47)
[2020-03-16] MEDS: CIPROFLOXACIN INJ 400 MG in PREMIX 1 EACH IV SCH ×2 (03:15→16:24)
[2020-03-16] MEDS: metroNIDAZOLE INJ 500 MG in PREMIX 1 EACH IV SCH ×3 (05:40→21:27)
[2020-03-16] MEDS: LEVOTHYROXINE 175 MCG TABLET PO SCH (06:08)
[2020-03-16 06:15] LABS: Basophils # 0.1 10*3/uL (0.0-0.2); Eosinophils % 9.7 % (0.00-10.9); Hematocrit 36.8 VOL% (42.0-52.0); Immature Granulocytes % 0.3 %; Immature Granulocytes Absolute 0.03 #; Lymphocytes # 2.4 10*3/uL (1.4-4.0); Lymphocytes % 22.5 % (21.2-54.2); Mean Corpuscular HGB Conc 29.9 GM/DL (32-36); Mean Corpuscular Volume 88.7 FL (87-102); Mean Platelet Volume 9.3 FL (9.6-12.0); Monocytes % 6.6 % (1.7-12.7); Neutrophils % 59.9 % (38.7-73.9); Platelet Count 358 T/CUMM (130-400); Red Blood Count 4.15 MC/CUMM (3.8-5.5); Red Cell Distribution Width 14.4 % (9.3-17.3); White Blood Count 10.8 T/CUMM (4-12)
[2020-03-16 06:34] LABS: Calcium 8.7 MG/DL (8.5-10.1); Osmolality,Calculated 277.5 MOS/KG (273-304); Potassium 3.7 MMOL/L (3.5-5.1)
[2020-03-16] MEDS ORDERED: LACTATED RINGERS 1,000 ML IV SCH (08:00)
[2020-03-16] MEDS: ZINC OXIDE PASTE 113 GM TUBE TOP SCH ×2 (11:12→21:28)
[2020-03-16] MEDS: INSULIN LISPRO 100 UNIT/ML SUBCUT SCH ×4 (11:12→21:29)
[2020-03-16] MEDS: BACLOFEN 10 MG TABLET PO SCH ×3 (11:13→21:29)
[2020-03-16] MEDS: oxyCODONE/ACETAMINOPHEN 5-325 MG TABLET PO SCH ×3 (11:13→21:28)
[2020-03-16] MEDS ORDERED: propofoL 200 MG/20 ML VIAL IV ONE ×2 (11:37)
[2020-03-16] MEDS ORDERED: LIDOCAINE 2% 5 ML VIAL ONE (11:37)
[2020-03-16] MEDS ORDERED: PHENYLEPHRINE 1 MG/10 ML SYRINGE IV ONE (12:02)
[2020-03-16] MEDS ORDERED: GLUCAGON 1 MG VIAL IM PRN (12:42)
[2020-03-16] MEDS ORDERED: DEXTROSE 50% 25 GM/50 ML VIAL IV PRN (12:42)
[2020-03-16 13:18] LABS: INR 1.2; PT Patient Result 12.3 SECS (9.8-11.9)
[2020-03-16] MEDS: OXYBUTYNIN XL 15 MG TABLET PO SCH (14:11)
[2020-03-16] MEDS: ASPIRIN EC 81 MG TABLET PO SCH (14:11)
[2020-03-16] MEDS: FLUCONAZOLE 100 MG TABLET PO SCH (14:11)
[2020-03-16] MEDS: DESITIN 4OZ/NYSTATIN 15 GRAM MIXTURE PASTE TOP SCH (14:11)
[2020-03-17] MEDS: DESITIN 4OZ/NYSTATIN 15 GRAM MIXTURE PASTE TOP SCH ×2 (00:53→09:17)
[2020-03-17] MEDS: CIPROFLOXACIN INJ 400 MG in PREMIX 1 EACH IV SCH (05:17)
[2020-03-17] MEDS: metroNIDAZOLE INJ 500 MG in PREMIX 1 EACH IV SCH (07:06)
[2020-03-17] MEDS: LEVOTHYROXINE 175 MCG TABLET PO SCH (07:07)
[2020-03-17] MEDS: SODIUM CHLORIDE 0.9% 1,000 ML IV SCH (07:08)
[2020-03-17] MEDS: INSULIN LISPRO 100 UNIT/ML SUBCUT SCH ×2 (09:08→12:31)
[2020-03-17] MEDS: FLUCONAZOLE 100 MG TABLET PO SCH (09:15)
[2020-03-17] MEDS: ASPIRIN EC 81 MG TABLET PO SCH (09:15)
[2020-03-17] MEDS: BACLOFEN 10 MG TABLET PO SCH (09:15)
[2020-03-17] MEDS: OXYBUTYNIN XL 15 MG TABLET PO SCH (09:15)
[2020-03-17] MEDS: oxyCODONE/ACETAMINOPHEN 5-325 MG TABLET PO SCH (09:16)
[2020-03-17] MEDS: ZINC OXIDE PASTE 113 GM TUBE TOP SCH (09:17)
[2020-03-17 11:51] VITALS: BP 124/80
== END 2020-03-17 13:53 | disposition home or self-care (01) | DRG 388 ==
LOC: N.ED 20:04 → N.EDINP 03-12 03:03 → SUATTDRO 03-12 03:03 → N.5E 03-12 15:57
PROVIDERS: ADMIT Family Medicine; ATTEND Internal Medicine

== ENCOUNTER 2020-03-21 22:33 | Inpatient (IN) ==
[2020-03-21 23:04] LABS: Basophils # 0.1 10*3/uL (0.0-0.2); Basophils % 1.1 % (0.0-0.8); Eosinophils % 10.9 % (0.00-10.9); Hematocrit 30.8 VOL% (42.0-52.0); Hemoglobin 9.7 GM/DL (14.0-18.0); Immature Granulocytes % 0.2 %; Immature Granulocytes Absolute 0.02 #; Lymphocytes # 2.1 10*3/uL (1.4-4.0); Lymphocytes % 23.2 % (21.2-54.2); Mean Corpuscular HGB Conc 31.5 GM/DL (32-36); Mean Corpuscular Volume 87.3 FL (87-102); Mean Platelet Volume 9.4 FL (9.6-12.0); Monocytes % 6.6 % (1.7-12.7); Platelet Count 340 T/CUMM (130-400); Red Blood Count 3.53 MC/CUMM (3.8-5.5); Red Cell Distribution Width 15.4 % (9.3-17.3); White Blood Count 9.2 T/CUMM (4-12)
[2020-03-21 23:32] LABS: Albumin 2.4 G/DL (3.4-5.0); Bilirubin,Total 0.4 MG/DL (0.2-1.0); Calcium 8.7 MG/DL (8.5-10.1); Osmolality,Calculated 285.4 MOS/KG (273-304); Potassium 3.4 MMOL/L (3.5-5.1); Total Protein 6.8 G/DL (6.4-8.3)
[2020-03-21] MEDS ORDERED: SODIUM CHLORIDE 0.9% 1,000 ML IV STA (23:35)
[2020-03-22 00:12] LABS: Bilirubin,Urine Negative (Negative); Blood, Urine Moderate mg/dL (Negative); Glucose,Urine (UA) Negative (Negative); Ketones,Urine Negative (Negative); Mucus,Urine Occasional /LPF (Occasional); Nitrite,Urine Negative (Negative); Protein,Urine Negative; RBC,Urine 5 /HPF (0-4); Urine Appearance CLOUDY (Clear); Urine Color Yellow (Yellow); Urine Specific Gravity 1.019 (1.001-1.035); Urine Urobilinogen < 2.0 EU/DL (0.2-1.0); WBC,Urine 88 /HPF (0-6)
[2020-03-22] MEDS ORDERED: cefTRIAXone 1,000 MG in SODIUM CHLORIDE 0.9% 100 ML IV STA (02:10)
[2020-03-22] MEDS ORDERED: GLUCAGON 1 MG VIAL IM PRN ×2 (03:15→09:13)
[2020-03-22] MEDS ORDERED: DEXTROSE 50% 25 GM/50 ML VIAL IV PRN ×2 (03:15→09:13)
[2020-03-22] MEDS ORDERED: ACETAMINOPHEN 325 MG TABLET PO PRN (03:15)
[2020-03-22] MEDS ORDERED: ONDANSETRON 4 MG/2 ML VIAL IV PRN (03:15)
[2020-03-22] MEDS ORDERED: SODIUM CHLORIDE 0.9% 1,000 ML IV SCH (03:30)
[2020-03-22] MEDS: OXYBUTYNIN XL 15 MG TABLET PO SCH (08:41)
[2020-03-22] MEDS: FLUCONAZOLE 100 MG TABLET PO SCH (08:42)
[2020-03-22] MEDS: ASPIRIN EC 81 MG TABLET PO SCH (08:42)
[2020-03-22] MEDS ORDERED: BACLOFEN 10 MG TABLET PO SCH (09:00)
[2020-03-22] MEDS ORDERED: POTASSIUM CHLORIDE 20 MEQ TABLET PO ONE (09:15)
[2020-03-22] MEDS: ZINC OXIDE PASTE 113 GM TUBE TOP SCH ×2 (09:27→22:55)
[2020-03-22] MEDS: oxyCODONE/ACETAMINOPHEN 5-325 MG TABLET PO SCH ×3 (11:02→22:55)
[2020-03-22] MEDS: BACLOFEN 10 MG TABLET PO SCH ×2 (15:19→22:55)
[2020-03-23] MEDS: cefTRIAXone 1,000 MG in SYRINGE 1 EACH IV SCH (02:46)
[2020-03-23] MEDS ORDERED: LEVOTHYROXINE 175 MCG TABLET PO SCH (06:30)
[2020-03-23 06:34] LABS: Basophils # 0.1 10*3/uL (0.0-0.2); Basophils % 1.1 % (0.0-0.8); Eosinophils # 0.8 10*3/uL (0.0-0.87); Eosinophils % 8.5 % (0.00-10.9); Hematocrit 31.2 VOL% (42.0-52.0); Hemoglobin 9.4 GM/DL (14.0-18.0); Immature Granulocytes % 0.3 %; Immature Granulocytes Absolute 0.03 #; Lymphocytes # 1.8 10*3/uL (1.4-4.0); Lymphocytes % 19.3 % (21.2-54.2); Mean Corpuscular HGB Conc 30.1 GM/DL (32-36); Mean Corpuscular Volume 88.4 FL (87-102); Mean Platelet Volume 9.5 FL (9.6-12.0); Monocytes % 6.3 % (1.7-12.7); Neutrophils % 64.5 % (38.7-73.9); Platelet Count 309 T/CUMM (130-400); Red Blood Count 3.53 MC/CUMM (3.8-5.5); Red Cell Distribution Width 15.3 % (9.3-17.3); White Blood Count 9.4 T/CUMM (4-12)
[2020-03-23 07:03] LABS: Calcium 8.2 MG/DL (8.5-10.1); Osmolality,Calculated 290.6 MOS/KG (273-304); Potassium 3.9 MMOL/L (3.5-5.1)
[2020-03-23] MEDS: LEVOTHYROXINE 175 MCG TABLET PO SCH (07:26)
[2020-03-23] MEDS ORDERED: INFLUENZA VIRUS VACCINE 0.5 ML SYRINGE IM ONE (09:00)
[2020-03-23] MEDS: ASPIRIN EC 81 MG TABLET PO SCH (09:25)
[2020-03-23] MEDS: oxyCODONE/ACETAMINOPHEN 5-325 MG TABLET PO SCH ×3 (09:25→21:07)
[2020-03-23] MEDS: OXYBUTYNIN XL 15 MG TABLET PO SCH (09:25)
[2020-03-23] MEDS: FLUCONAZOLE 100 MG TABLET PO SCH (09:25)
[2020-03-23] MEDS: ZINC OXIDE PASTE 113 GM TUBE TOP SCH ×2 (09:25→21:07)
[2020-03-23] MEDS: BACLOFEN 10 MG TABLET PO SCH (09:26)
[2020-03-23] MEDS: BACLOFEN 20 MG TABLET PO SCH ×2 (16:30→21:07)
[2020-03-24 05:42] LABS: Basophils # 0.1 10*3/uL (0.0-0.2); Basophils % 0.7 % (0.0-0.8); Eosinophils # 0.9 10*3/uL (0.0-0.87); Eosinophils % 8.4 % (0.00-10.9); Hematocrit 31.7 VOL% (42.0-52.0); Immature Granulocytes % 0.3 %; Immature Granulocytes Absolute 0.03 #; Lymphocytes # 1.8 10*3/uL (1.4-4.0); Lymphocytes % 17.2 % (21.2-54.2); Mean Corpuscular HGB Conc 31.5 GM/DL (32-36); Mean Corpuscular Volume 87.3 FL (87-102); Mean Platelet Volume 9.5 FL (9.6-12.0); Monocytes % 6.2 % (1.7-12.7); Neutrophils % 67.2 % (38.7-73.9); Platelet Count 318 T/CUMM (130-400); Red Blood Count 3.63 MC/CUMM (3.8-5.5); Red Cell Distribution Width 15.2 % (9.3-17.3); White Blood Count 10.5 T/CUMM (4-12)
[2020-03-24 06:17] LABS: Calcium 8.9 MG/DL (8.5-10.1); Osmolality,Calculated 280.4 MOS/KG (273-304); Potassium 4.1 MMOL/L (3.5-5.1)
[2020-03-24] MEDS: LEVOTHYROXINE 175 MCG TABLET PO SCH (07:04)
[2020-03-24] MEDS: cefTRIAXone 1,000 MG in SYRINGE 1 EACH IV SCH (08:45)
[2020-03-24] MEDS: ASPIRIN EC 81 MG TABLET PO SCH (08:46)
[2020-03-24] MEDS: POLYETHYLENE GLYCOL POWDER 17 GM PACK PO SCH (08:46)
[2020-03-24] MEDS: OXYBUTYNIN XL 15 MG TABLET PO SCH (08:46)
[2020-03-24] MEDS: oxyCODONE/ACETAMINOPHEN 5-325 MG TABLET PO SCH ×4 (08:46→21:03)
[2020-03-24] MEDS: BACLOFEN 20 MG TABLET PO SCH ×2 (08:46→10:09)
[2020-03-24] MEDS: ZINC OXIDE PASTE 113 GM TUBE TOP SCH ×2 (08:52→21:03)
[2020-03-24] MEDS ORDERED: SKIN HEALING OINT (AQUAPHOR) 50 GM TUBE TOP PRN (13:33)
[2020-03-24] MEDS ORDERED: BACLOFEN 20 MG TABLET PO PRN (14:07)
[2020-03-25 04:47] LABS: Basophils # 0.1 10*3/uL (0.0-0.2); Basophils % 0.7 % (0.0-0.8); Eosinophils # 1.6 10*3/uL (0.0-0.87); Eosinophils % 13.1 % (0.00-10.9); Hemoglobin 9.3 GM/DL (14.0-18.0); Immature Granulocytes % 0.5 %; Immature Granulocytes Absolute 0.06 #; Lymphocytes # 2.2 10*3/uL (1.4-4.0); Lymphocytes % 18.2 % (21.2-54.2); Mean Corpuscular Volume 89.3 FL (87-102); Mean Platelet Volume 9.2 FL (9.6-12.0); Monocytes % 6.5 % (1.7-12.7); Platelet Count 304 T/CUMM (130-400); Red Blood Count 3.47 MC/CUMM (3.8-5.5); Red Cell Distribution Width 15.1 % (9.3-17.3)
[2020-03-25 05:12] LABS: Eosinophils 9 % (0-10); Hypochromasia 1+; Lymphocytes 16 % (20-55); Microcytosis 1+; Platelet Estimate Adequate; Segmented Neutrophils 71 % (50-85); Total Cells Counted 100
[2020-03-25 05:13] LABS: Calcium 7.2 MG/DL (8.5-10.1); Osmolality,Calculated 287.7 MOS/KG (273-304); Potassium 3.4 MMOL/L (3.5-5.1)
[2020-03-25] MEDS: LEVOTHYROXINE 175 MCG TABLET PO SCH (07:00)
[2020-03-25] MEDS: POLYETHYLENE GLYCOL POWDER 17 GM PACK PO SCH (09:15)
[2020-03-25] MEDS: OXYBUTYNIN XL 15 MG TABLET PO SCH (09:16)
[2020-03-25] MEDS: ASPIRIN EC 81 MG TABLET PO SCH (09:16)
[2020-03-25] MEDS: POTASSIUM CHLORIDE 20 MEQ TABLET PO PRN ×3 (09:17→16:12)
[2020-03-25] MEDS: cefTRIAXone 1,000 MG in SYRINGE 1 EACH IV SCH (09:17)
[2020-03-25] MEDS: oxyCODONE/ACETAMINOPHEN 5-325 MG TABLET PO SCH ×3 (09:17→21:48)
[2020-03-25] MEDS: DIVALPROEX ER 500 MG TABLET PO SCH (09:17)
[2020-03-25] MEDS: ZINC OXIDE PASTE 113 GM TUBE TOP SCH ×2 (10:33→21:49)
[2020-03-25] MEDS ORDERED: VANCOMYCIN INJ 1,500 MG in SODIUM CHLORIDE 0.9% 500 ML IV ONE (12:00)
[2020-03-25] MEDS ORDERED: MAGNESIUM SULF RIDER 2 GM in PREMIX 1 EACH IV PRN (15:03)
[2020-03-25] MEDS ORDERED: ENOXAPARIN 40 MG/0.4 ML SYRINGE SUBCUT SCH (21:00)
[2020-03-26] MEDS ORDERED: VANCOMYCIN INJ 1,500 MG in SODIUM CHLORIDE 0.9% 500 ML IV SCH (06:00)
[2020-03-26] MEDS: LEVOTHYROXINE 175 MCG TABLET PO SCH (06:30)
[2020-03-26] MEDS: POLYETHYLENE GLYCOL POWDER 17 GM PACK PO SCH (09:13)
[2020-03-26] MEDS: DIVALPROEX ER 500 MG TABLET PO SCH (09:14)
[2020-03-26] MEDS: oxyCODONE/ACETAMINOPHEN 5-325 MG TABLET PO SCH ×2 (09:14→17:00)
[2020-03-26] MEDS: OXYBUTYNIN XL 15 MG TABLET PO SCH (09:14)
[2020-03-26] MEDS: cefTRIAXone 1,000 MG in SYRINGE 1 EACH IV SCH (09:14)
[2020-03-26] MEDS: ASPIRIN EC 81 MG TABLET PO SCH (09:14)
[2020-03-26] MEDS: ZINC OXIDE PASTE 113 GM TUBE TOP SCH (09:15)
[2020-03-26 17:03] VITALS: BP 133/87
== END 2020-03-26 17:00 | disposition home health service (06) | DRG 698 ==
LOC: EDUNIT# → N.EDINP 22:33 → N.ED 22:33 → N.5E 03-22 03:51 → SUATTDRO 03-23 13:55
PROVIDERS: ADMIT Internal Medicine; ATTEND Family Medicine

== ENCOUNTER 2020-03-28 22:03 | Inpatient (IN) ==
[2020-03-28 23:18] LABS: Basophils # 0.1 10*3/uL (0.0-0.2); Basophils % 0.8 % (0.0-0.8); Eosinophils # 0.9 10*3/uL (0.0-0.87); Eosinophils % 7.7 % (0.00-10.9); Hematocrit 35.8 VOL% (42.0-52.0); Hemoglobin 10.8 GM/DL (14.0-18.0); Immature Granulocytes % 0.4 %; Immature Granulocytes Absolute 0.04 #; Lymphocytes # 1.6 10*3/uL (1.4-4.0); Lymphocytes % 14.3 % (21.2-54.2); Mean Corpuscular HGB Conc 30.2 GM/DL (32-36); Mean Corpuscular Volume 88.6 FL (87-102); Mean Platelet Volume 9.6 FL (9.6-12.0); Monocytes % 5.2 % (1.7-12.7); Neutrophils % 71.6 % (38.7-73.9); Platelet Count 337 T/CUMM (130-400); Red Blood Count 4.04 MC/CUMM (3.8-5.5); Red Cell Distribution Width 15.9 % (9.3-17.3); White Blood Count 11.2 T/CUMM (4-12)
[2020-03-28 23:30] LABS: PT Patient Result 11.1 SECS (9.8-11.9)
[2020-03-28 23:35] LABS: Albumin 2.8 G/DL (3.4-5.0); Bilirubin,Total 0.5 MG/DL (0.2-1.0); Calcium 8.8 MG/DL (8.5-10.1); Osmolality,Calculated 289.1 MOS/KG (273-304); Potassium 4.9 MMOL/L (3.5-5.1); Total Protein 7.4 G/DL (6.4-8.3)
[2020-03-28 23:36] LABS: Bilirubin,Urine Negative (Negative); Blood, Urine Negative (Negative); Glucose,Urine (UA) Negative (Negative); Hyaline Casts,Urine 5 /LPF (0-3); Ketones,Urine Negative (Negative); Mucus,Urine Occasional /LPF (Occasional); Nitrite,Urine Negative (Negative); Protein,Urine Negative; RBC,Urine 3 /HPF (0-4); Urine Appearance CLEAR (Clear); Urine Color Yellow (Yellow); Urine Specific Gravity 1.015 (1.001-1.035); Urine Urobilinogen < 2.0 EU/DL (0.2-1.0); WBC,Urine 40 /HPF (0-6)
[2020-03-28 23:40] LABS: ABG Base Excess 4.4 MMOL/L (-2.5-2.5); ABG HCO3 28.4 MMOL/L (20-26); ABG Oxygen Saturation 99.4 % (95-100); ABG PCO2 52.2 MM HG (35-48); ABG PH 7.377 (7.35-7.45); ABG TCO2 27.7 MMOL/L (23-27)
[2020-03-28] MEDS ORDERED: SODIUM CHLORIDE 0.9% 1,000 ML IV STA (23:55)
[2020-03-28] MEDS ORDERED: LEVOFLOXACIN INJ 500 MG in PREMIX 1 EACH IV STA (23:55)
[2020-03-29] MEDS ORDERED: ACETAMINOPHEN 325 MG TABLET PO PRN (00:06)
[2020-03-29] MEDS ORDERED: GLUCAGON 1 MG VIAL IM PRN (00:06)
[2020-03-29] MEDS ORDERED: DEXTROSE 50% 25 GM/50 ML VIAL IV PRN (00:06)
[2020-03-29 00:56] LABS: Barbiturates Screen,Urine Negative (Negative); Benzodiazepines Screen,Urine Negative (Negative); Cannabinoid Screen,Urine Negative (Negative); Opiate Screen,Urine Positive (Negative); Phencyclidine Screen,Urine Negative (Negative)
[2020-03-29] MEDS: SODIUM CHLORIDE 0.9% 1,000 ML IV SCH ×6 (03:43→22:31)
[2020-03-29] MEDS: cefTRIAXone 1,000 MG in SODIUM CHLORIDE 0.9% 100 ML IV SCH (03:44)
[2020-03-29 08:05] LABS: Basophils # 0.1 10*3/uL (0.0-0.2); Basophils % 0.6 % (0.0-0.8); Eosinophils # 0.4 10*3/uL (0.0-0.87); Eosinophils % 4.3 % (0.00-10.9); Hemoglobin 11.1 GM/DL (14.0-18.0); Immature Granulocytes % 0.2 %; Immature Granulocytes Absolute 0.02 #; Lymphocytes # 1.3 10*3/uL (1.4-4.0); Lymphocytes % 13.3 % (21.2-54.2); Mean Corpuscular HGB Conc 30.8 GM/DL (32-36); Mean Platelet Volume 9.3 FL (9.6-12.0); Monocytes % 4.6 % (1.7-12.7); Platelet Count 314 T/CUMM (130-400); Red Blood Count 4.09 MC/CUMM (3.8-5.5); Red Cell Distribution Width 15.7 % (9.3-17.3); White Blood Count 9.8 T/CUMM (4-12)
[2020-03-29 08:36] LABS: Albumin 2.8 G/DL (3.4-5.0); Bilirubin,Total 0.7 MG/DL (0.2-1.0); Calcium 8.8 MG/DL (8.5-10.1); Osmolality,Calculated 283.4 MOS/KG (273-304); Potassium 4.8 MMOL/L (3.5-5.1); Thyroid Stimulating Hormone 3.27 uIU/ml (0.358-3.74); Total Protein 7.6 G/DL (6.4-8.3)
[2020-03-29] MEDS: INSULIN REGULAR 100 UNIT/ML SUBCUT SCH ×4 (08:45→22:31)
[2020-03-29] MEDS: ENOXAPARIN 40 MG/0.4 ML SYRINGE SUBCUT SCH (09:47)
[2020-03-30] MEDS: cefTRIAXone 1,000 MG in SODIUM CHLORIDE 0.9% 100 ML IV SCH (02:49)
[2020-03-30] MEDS: ONDANSETRON 4 MG/2 ML VIAL IV PRN ×2 (05:34→18:59)
[2020-03-30] MEDS: INSULIN REGULAR 100 UNIT/ML SUBCUT SCH ×4 (09:15→21:44)
[2020-03-30] MEDS: ENOXAPARIN 40 MG/0.4 ML SYRINGE SUBCUT SCH (10:23)
[2020-03-30] MEDS: SODIUM CHLORIDE 0.9% 1,000 ML IV SCH ×3 (12:51→23:31)
[2020-03-30] MEDS ORDERED: LACTULOSE 20 GM/30 ML UDCUP PO PRN (15:16)
[2020-03-30] MEDS: BACLOFEN 10 MG TABLET PO SCH (21:47)
[2020-03-30] MEDS: ZINC OXIDE PASTE 113 GM TUBE TOP SCH (21:47)
[2020-03-31] MEDS: cefTRIAXone 1,000 MG in SODIUM CHLORIDE 0.9% 100 ML IV SCH (04:00)
[2020-03-31] MEDS: LEVOTHYROXINE 175 MCG TABLET PO SCH (06:26)
[2020-03-31 06:46] LABS: Basophils # 0.1 10*3/uL (0.0-0.2); Basophils % 0.5 % (0.0-0.8); Eosinophils # 0.9 10*3/uL (0.0-0.87); Eosinophils % 7.5 % (0.00-10.9); Hemoglobin 11.2 GM/DL (14.0-18.0); Immature Granulocytes % 0.4 %; Immature Granulocytes Absolute 0.04 #; Lymphocytes # 2.1 10*3/uL (1.4-4.0); Lymphocytes % 18.3 % (21.2-54.2); Mean Corpuscular HGB Conc 31.1 GM/DL (32-36); Mean Corpuscular Volume 87.8 FL (87-102); Mean Platelet Volume 9.6 FL (9.6-12.0); Monocytes % 5.9 % (1.7-12.7); Neutrophils % 67.4 % (38.7-73.9); Platelet Count 335 T/CUMM (130-400); Red Cell Distribution Width 15.3 % (9.3-17.3); White Blood Count 11.3 T/CUMM (4-12)
[2020-03-31 07:13] LABS: Calcium 9.2 MG/DL (8.5-10.1); Osmolality,Calculated 281.4 MOS/KG (273-304); Potassium 4.1 MMOL/L (3.5-5.1)
[2020-03-31] MEDS ORDERED: amLODIPine 10 MG TABLET PO SCH (09:00)
[2020-03-31] MEDS: DIVALPROEX ER 500 MG TABLET PO SCH (09:30)
[2020-03-31] MEDS: INSULIN REGULAR 100 UNIT/ML SUBCUT SCH ×4 (09:44→20:47)
[2020-03-31] MEDS: GLIMEPIRIDE 2 MG TABLET PO SCH (09:45)
[2020-03-31] MEDS: ASPIRIN EC 81 MG TABLET PO SCH (09:45)
[2020-03-31] MEDS: OXYBUTYNIN XL 15 MG TABLET PO SCH (09:46)
[2020-03-31] MEDS: BACLOFEN 10 MG TABLET PO SCH ×3 (09:47→20:47)
[2020-03-31] MEDS: ENOXAPARIN 40 MG/0.4 ML SYRINGE SUBCUT SCH (09:48)
[2020-03-31] MEDS: ZINC OXIDE PASTE 113 GM TUBE TOP SCH ×2 (11:19→20:47)
[2020-03-31] MEDS: SODIUM CHLORIDE 0.9% 1,000 ML IV SCH ×2 (13:45→15:23)
[2020-03-31] MEDS ORDERED: amLODIPine 2.5 MG TABLET PO SCH (14:40)
[2020-04-01] MEDS: cefTRIAXone 1,000 MG in SODIUM CHLORIDE 0.9% 100 ML IV SCH (03:35)
[2020-04-01 05:44] LABS: Basophils # 0.1 10*3/uL (0.0-0.2); Basophils % 0.8 % (0.0-0.8); Eosinophils % 10.7 % (0.00-10.9); Hematocrit 30.8 VOL% (42.0-52.0); Hemoglobin 9.3 GM/DL (14.0-18.0); Immature Granulocytes % 0.3 %; Immature Granulocytes Absolute 0.03 #; Lymphocytes # 2.2 10*3/uL (1.4-4.0); Lymphocytes % 23.7 % (21.2-54.2); Mean Corpuscular HGB Conc 30.2 GM/DL (32-36); Mean Corpuscular Volume 89.8 FL (87-102); Mean Platelet Volume 9.7 FL (9.6-12.0); Monocytes % 6.1 % (1.7-12.7); Neutrophils % 58.4 % (38.7-73.9); Platelet Count 296 T/CUMM (130-400); Red Blood Count 3.43 MC/CUMM (3.8-5.5); Red Cell Distribution Width 15.4 % (9.3-17.3); White Blood Count 9.3 T/CUMM (4-12)
[2020-04-01] MEDS: LEVOTHYROXINE 175 MCG TABLET PO SCH (05:45)
[2020-04-01 05:59] LABS: Calcium 8.4 MG/DL (8.5-10.1); Osmolality,Calculated 288.8 MOS/KG (273-304); Potassium 4.2 MMOL/L (3.5-5.1)
[2020-04-01] MEDS: SODIUM CHLORIDE 0.9% 1,000 ML IV SCH ×2 (08:21→12:07)
[2020-04-01] MEDS: BACLOFEN 10 MG TABLET PO SCH ×2 (09:33→16:22)
[2020-04-01] MEDS: DIVALPROEX ER 500 MG TABLET PO SCH (09:33)
[2020-04-01] MEDS: OXYBUTYNIN XL 15 MG TABLET PO SCH (09:33)
[2020-04-01] MEDS: ENOXAPARIN 40 MG/0.4 ML SYRINGE SUBCUT SCH (09:34)
[2020-04-01] MEDS: GLIMEPIRIDE 2 MG TABLET PO SCH (09:34)
[2020-04-01] MEDS: ASPIRIN EC 81 MG TABLET PO SCH (09:34)
[2020-04-01] MEDS: INSULIN REGULAR 100 UNIT/ML SUBCUT SCH ×3 (09:40→16:24)
[2020-04-01] MEDS: ZINC OXIDE PASTE 113 GM TUBE TOP SCH (12:07)
[2020-04-01 15:57] VITALS: BP 128/73
== END 2020-04-01 19:27 | disposition home health service (06) | DRG 880 ==
LOC: EDBD → EDUNIT# → N.ED 22:03 → N.EDINP 03-29 00:06 → N.TELES 03-29 01:50
PROVIDERS: ADMIT Internal Medicine; ATTEND Internal Medicine

== ENCOUNTER 2020-04-06 08:17 | Inpatient (IN) ==
[2020-04-06] MEDS ORDERED: SODIUM CHLORIDE 0.9% 1,000 ML IV STA (09:19)
[2020-04-06 10:16] LABS: Basophils # 0.1 10*3/uL (0.0-0.2); Basophils % 0.5 % (0.0-0.8); Eosinophils # 0.2 10*3/uL (0.0-0.87); Eosinophils % 1.6 % (0.00-10.9); Hemoglobin 10.3 GM/DL (14.0-18.0); Immature Granulocytes % 0.6 %; Immature Granulocytes Absolute 0.06 #; Lymphocytes # 1.7 10*3/uL (1.4-4.0); Lymphocytes % 16.1 % (21.2-54.2); Mean Corpuscular HGB Conc 30.3 GM/DL (32-36); Mean Corpuscular Volume 89.5 FL (87-102); Mean Platelet Volume 10.1 FL (9.6-12.0); Monocytes % 10.1 % (1.7-12.7); Neutrophils % 71.1 % (38.7-73.9); Platelet Count 267 T/CUMM (130-400); Red Cell Distribution Width 16.4 % (9.3-17.3); White Blood Count 10.6 T/CUMM (4-12)
[2020-04-06 10:20] LABS: Bacteria,Urine Occasional /HPF (Few); Bilirubin,Urine Negative (Negative); Blood, Urine Small mg/dL (Negative); Glucose,Urine (UA) Negative (Negative); Hyaline Casts,Urine 5 /LPF (0-3); Ketones,Urine 5 mg/dL (Negative); Mucus,Urine Few /LPF (Occasional); Nitrite,Urine Negative (Negative); Protein,Urine 30 MG/DL; RBC,Urine 51 /HPF (0-4); Urine Appearance CLOUDY (Clear); Urine Color Yellow (Yellow); Urine Specific Gravity 1.023 (1.001-1.035); Urine Urobilinogen < 2.0 EU/DL (0.2-1.0); WBC,Urine 168 /HPF (0-6)
[2020-04-06 10:32] LABS: INR 1.1; PT Patient Result 11.3 SECS (9.8-11.9); Partial Thromboplastin Time 29.9 SECS (23.9-33.8)
[2020-04-06 10:46] LABS: Barbiturates Screen,Urine Negative (Negative); Benzodiazepines Screen,Urine Negative (Negative); Cannabinoid Screen,Urine Negative (Negative); Opiate Screen,Urine Positive (Negative); Phencyclidine Screen,Urine Negative (Negative)
[2020-04-06 10:54] LABS: CKMB % 1.2 %; Troponin I < 0.015 NG/ML (0.00-0.045)
[2020-04-06 11:01] LABS: Ferritin 236.7 ng/ml (26-388)
[2020-04-06 11:04] LABS: Albumin 2.6 G/DL (3.4-5.0); Bilirubin,Total 0.6 MG/DL (0.2-1.0); Calcium 8.9 MG/DL (8.5-10.1); Osmolality,Calculated 292.3 MOS/KG (273-304); Potassium 4.9 MMOL/L (3.5-5.1); Total Protein 7.1 G/DL (6.4-8.3)
[2020-04-06] MEDS ORDERED: ACETAMINOPHEN 325 MG TABLET PO PRN (11:26)
[2020-04-06] MEDS ORDERED: ONDANSETRON 4 MG/2 ML VIAL IV PRN (11:26)
[2020-04-06] MEDS ORDERED: GLUCAGON 1 MG VIAL IM PRN (11:26)
[2020-04-06] MEDS ORDERED: hydrALAZINE 20 MG/1 ML VIAL IV PRN (11:26)
[2020-04-06] MEDS ORDERED: DEXTROSE 50% 25 GM/50 ML VIAL IV PRN (11:26)
[2020-04-06] MEDS ORDERED: DOCUSATE SODIUM 100 MG CAPSULE PO PRN (11:26)
[2020-04-06] MEDS ORDERED: AZITHROMYCIN INJ 500 MG in SODIUM CHLORIDE 0.9% 250 ML IV ONE (11:31)
[2020-04-06] MEDS: ENOXAPARIN 40 MG/0.4 ML SYRINGE SUBCUT SCH (12:20)
[2020-04-06] MEDS: FAMOTIDINE 20 MG TABLET PO SCH (22:00)
[2020-04-06] MEDS: ASCORBIC ACID 500 MG TABLET PO SCH (22:00)
[2020-04-07 05:49] LABS: Basophils # 0.1 10*3/uL (0.0-0.2); Basophils % 0.6 % (0.0-0.8); Eosinophils # 0.3 10*3/uL (0.0-0.87); Eosinophils % 2.9 % (0.00-10.9); Hematocrit 32.6 VOL% (42.0-52.0); Immature Granulocytes % 0.4 %; Immature Granulocytes Absolute 0.04 #; Lymphocytes # 1.6 10*3/uL (1.4-4.0); Lymphocytes % 17.9 % (21.2-54.2); Mean Corpuscular HGB Conc 30.7 GM/DL (32-36); Mean Corpuscular Volume 87.4 FL (87-102); Mean Platelet Volume 10.6 FL (9.6-12.0); Monocytes % 9.3 % (1.7-12.7); Neutrophils % 68.9 % (38.7-73.9); Platelet Count 249 T/CUMM (130-400); Red Blood Count 3.73 MC/CUMM (3.8-5.5); Red Cell Distribution Width 16.2 % (9.3-17.3); White Blood Count 8.9 T/CUMM (4-12)
[2020-04-07 06:04] LABS: Calcium 8.4 MG/DL (8.5-10.1); Potassium 4.5 MMOL/L (3.5-5.1)
[2020-04-07 06:12] LABS: Ferritin 272.8 ng/ml (26-388)
[2020-04-07] MEDS: ZINC GLUCONATE 50 MG TABLET PO SCH (09:15)
[2020-04-07] MEDS: CETIRIZINE 10 MG TABLET PO SCH (09:15)
[2020-04-07] MEDS: DEXAMETHASONE 4 MG/1 ML VIAL IV SCH (09:15)
[2020-04-07] MEDS: AZITHROMYCIN 250 MG TABLET PO SCH (09:15)
[2020-04-07] MEDS: ASCORBIC ACID 500 MG TABLET PO SCH ×2 (09:15→21:27)
[2020-04-07] MEDS: FAMOTIDINE 20 MG TABLET PO SCH ×2 (09:16→21:27)
[2020-04-07] MEDS: DESITIN 4OZ/NYSTATIN 15 GRAM MIXTURE PASTE TOP SCH ×2 (09:16→21:27)
[2020-04-07] MEDS: CHOLECALCIFEROL 1,000 UNIT TABLET PO SCH (09:16)
[2020-04-07] MEDS: ENOXAPARIN 40 MG/0.4 ML SYRINGE SUBCUT SCH (11:46)
[2020-04-08] MEDS ORDERED: LEVOTHYROXINE 200 MCG TABLET PO SCH (06:30)
[2020-04-08 07:04] LABS: Basophils % 0.3 % (0.0-0.8); Hematocrit 36.7 VOL% (42.0-52.0); Hemoglobin 10.9 GM/DL (14.0-18.0); Immature Granulocytes % 0.5 %; Immature Granulocytes Absolute 0.03 #; Lymphocytes # 1.3 10*3/uL (1.4-4.0); Lymphocytes % 19.7 % (21.2-54.2); Mean Corpuscular HGB Conc 29.7 GM/DL (32-36); Mean Corpuscular Volume 91.5 FL (87-102); Mean Platelet Volume 10.1 FL (9.6-12.0); Monocytes % 8.1 % (1.7-12.7); Neutrophils % 71.4 % (38.7-73.9); Platelet Count 310 T/CUMM (130-400); Red Blood Count 4.01 MC/CUMM (3.8-5.5); Red Cell Distribution Width 15.7 % (9.3-17.3); White Blood Count 6.7 T/CUMM (4-12)
[2020-04-08 07:06] LABS: Potassium 4.6 MMOL/L (3.5-5.1)
[2020-04-08 07:08] LABS: Calcium 8.5 MG/DL (8.5-10.1)
[2020-04-08] MEDS: ASCORBIC ACID 500 MG TABLET PO SCH (08:31)
[2020-04-08] MEDS: CETIRIZINE 10 MG TABLET PO SCH (08:31)
[2020-04-08] MEDS: ZINC GLUCONATE 50 MG TABLET PO SCH (08:31)
[2020-04-08] MEDS: DEXAMETHASONE 4 MG/1 ML VIAL IV SCH (08:31)
[2020-04-08] MEDS: CHOLECALCIFEROL 1,000 UNIT TABLET PO SCH (08:31)
[2020-04-08] MEDS: FAMOTIDINE 20 MG TABLET PO SCH (08:31)
[2020-04-08] MEDS: AZITHROMYCIN 250 MG TABLET PO SCH (08:31)
[2020-04-08] MEDS: DESITIN 4OZ/NYSTATIN 15 GRAM MIXTURE PASTE TOP SCH (08:32)
[2020-04-08] MEDS: ENOXAPARIN 40 MG/0.4 ML SYRINGE SUBCUT SCH (11:25)
[2020-04-08 11:41] VITALS: BP 122/62
== END 2020-04-08 13:30 | disposition home or self-care (01) | DRG 177 ==
LOC: EDUNIT# → EDBD → N.ED 08:17 → N.EDINP 11:26 → N.2E 13:25
PROVIDERS: ADMIT Internal Medicine; ATTEND Internal Medicine

== ENCOUNTER 2020-06-14 23:49 | Inpatient (IN) ==
[2020-06-15] MEDS ORDERED: SODIUM CHLORIDE 0.9% 1,000 ML IV STA (00:04)
[2020-06-15 02:25] LABS: Albumin 3.3 G/DL (3.4-5.0); Bilirubin,Total 0.4 MG/DL (0.2-1.0); Calcium 8.9 MG/DL (8.5-10.1); Osmolality,Calculated 293.7 MOS/KG (273-304); Total Protein 7.3 G/DL (6.4-8.2)
[2020-06-15] MEDS ORDERED: DEXTROSE 50% 25 GM/50 ML VIAL IV ONE (02:25)
[2020-06-15] MEDS ORDERED: INSULIN REGULAR 100 UNIT/ML ONE (02:28)
[2020-06-15] MEDS ORDERED: INSULIN REGULAR 100 UNIT/ML IV STA (02:40)
[2020-06-15] MEDS ORDERED: DEXTROSE 50% 25 GM/50 ML VIAL IV STA (02:40)
[2020-06-15] MEDS ORDERED: CALCIUM CHLORIDE 1,000 MG/10 ML SYRINGE IV STA (02:46)
[2020-06-15 02:49] LABS: Basophils # 0.1 10*3/uL (0.0-0.2); Basophils % 0.8 % (0.0-0.8); Eosinophils # 0.5 10*3/uL (0.0-0.87); Eosinophils % 4.3 % (0.00-10.9); Hematocrit 33.6 VOL% (42.0-52.0); Hemoglobin 10.6 GM/DL (14.0-18.0); Immature Granulocytes % 0.3 %; Immature Granulocytes Absolute 0.03 #; Lymphocytes # 1.9 10*3/uL (1.4-4.0); Mean Corpuscular HGB Conc 31.5 GM/DL (32-36); Mean Corpuscular Volume 89.6 FL (87-102); Mean Platelet Volume 10.6 FL (9.6-12.0); Monocytes % 5.2 % (1.7-12.7); Neutrophils % 72.4 % (38.7-73.9); Platelet Count 254 T/CUMM (130-400); Red Blood Count 3.75 MC/CUMM (3.8-5.5); Red Cell Distribution Width 15.7 % (9.3-17.3); White Blood Count 10.9 T/CUMM (4-12)
[2020-06-15 02:50] LABS: Potassium 6.8 MMOL/L (3.5-5.1)
[2020-06-15] MEDS ORDERED: LEVOFLOXACIN INJ 500 MG/100 ML PREMIX IV STA (02:51)
[2020-06-15 02:52] LABS: Urine Appearance Slightly Hazy (Clear); Urine Color Yellow (Yellow)
[2020-06-15 02:53] LABS: Bilirubin,Urine Negative (Negative); Blood, Urine Moderate mg/dL (Negative); Glucose,Urine (UA) Negative (Negative); Ketones,Urine Negative (Negative); Nitrite,Urine Negative (Negative); Protein,Urine Negative; Urine Specific Gravity 1.016 (1.001-1.035)
[2020-06-15 02:54] LABS: Hyaline Casts,Urine 5 /LPF (0-3); Mucus,Urine Occasional /LPF (Occasional); RBC,Urine 118 /HPF (0-4); Squamous Epithelial Cell,Urine Occasional /HPF (0-10); Urine Urobilinogen < 2.0 EU/DL (0.2-1.0)
[2020-06-15 02:55] LABS: Calcium 8.7 MG/DL (8.5-10.1); Osmolality,Calculated 300.3 MOS/KG (273-304); Potassium 6.9 MMOL/L (3.5-5.1)
[2020-06-15] MEDS ORDERED: DEXTROSE 50% 25 GM/50 ML VIAL IV PRN (03:31)
[2020-06-15] MEDS ORDERED: GLUCAGON 1 MG VIAL IM PRN (03:31)
[2020-06-15] MEDS ORDERED: DOCUSATE SODIUM 100 MG CAPSULE PO PRN (03:31)
[2020-06-15] MEDS: CEFEPIME 1,000 MG in SODIUM CHLORIDE 0.9% 100 ML IV SCH ×4 (04:10→21:46)
[2020-06-15 05:42] LABS: Basophils # 0.1 10*3/uL (0.0-0.2); Basophils % 0.8 % (0.0-0.8); Eosinophils # 0.2 10*3/uL (0.0-0.87); Hematocrit 34.1 VOL% (42.0-52.0); Hemoglobin 10.8 GM/DL (14.0-18.0); Immature Granulocytes % 0.3 %; Immature Granulocytes Absolute 0.03 #; Lymphocytes # 1.6 10*3/uL (1.4-4.0); Lymphocytes % 18.5 % (21.2-54.2); Mean Corpuscular HGB Conc 31.7 GM/DL (32-36); Mean Corpuscular Volume 89.5 FL (87-102); Mean Platelet Volume 10.6 FL (9.6-12.0); Monocytes % 4.8 % (1.7-12.7); Neutrophils % 73.6 % (38.7-73.9); Platelet Count 256 T/CUMM (130-400); Red Blood Count 3.81 MC/CUMM (3.8-5.5); Red Cell Distribution Width 15.5 % (9.3-17.3); White Blood Count 8.6 T/CUMM (4-12)
[2020-06-15 05:52] LABS: Calcium 9.9 MG/DL (8.5-10.1); Osmolality,Calculated 293.5 MOS/KG (273-304)
[2020-06-15 05:54] LABS: Potassium 6.6 MMOL/L (3.5-5.1)
[2020-06-15] MEDS ORDERED: SODIUM POLYSTYRENE SULFATE 15 GM/60 ML BOTTLE PO STA (05:57)
[2020-06-15] MEDS: SODIUM CHLORIDE 0.9% 1,000 ML IV SCH ×3 (06:10→21:45)
[2020-06-15] MEDS: INSULIN LISPRO 100 UNIT/ML SUBCUT SCH ×4 (08:15→21:45)
[2020-06-15] MEDS ORDERED: SODIUM POLYSTYRENE SULFATE 15 GM/60 ML BOTTLE PO ONE (14:23)
[2020-06-15] MEDS ORDERED: INSULIN REGULAR 10 UNIT, CALCIUM GLUCONATE 1,000 MG in DEXTROSE 10% 250 ML IV ONE (14:24)
[2020-06-16] MEDS: ONDANSETRON 4 MG/2 ML VIAL IV PRN ×2 (00:47→08:29)
[2020-06-16] MEDS: SODIUM CHLORIDE 0.9% 1,000 ML IV SCH ×6 (00:50→21:23)
[2020-06-16] MEDS: CEFEPIME 1,000 MG in SODIUM CHLORIDE 0.9% 100 ML IV SCH ×6 (03:51→21:38)
[2020-06-16 05:25] LABS: Basophils # 0.1 10*3/uL (0.0-0.2); Basophils % 0.6 % (0.0-0.8); Eosinophils # 0.1 10*3/uL (0.0-0.87); Eosinophils % 0.8 % (0.00-10.9); Hematocrit 36.9 VOL% (42.0-52.0); Hemoglobin 11.4 GM/DL (14.0-18.0); Immature Granulocytes % 0.3 %; Immature Granulocytes Absolute 0.04 #; Lymphocytes # 1.4 10*3/uL (1.4-4.0); Lymphocytes % 9.3 % (21.2-54.2); Mean Corpuscular HGB Conc 30.9 GM/DL (32-36); Mean Corpuscular Volume 91.3 FL (87-102); Mean Platelet Volume 10.4 FL (9.6-12.0); Monocytes % 7.1 % (1.7-12.7); Neutrophils % 81.9 % (38.7-73.9); Platelet Count 270 T/CUMM (130-400); Red Blood Count 4.04 MC/CUMM (3.8-5.5); Red Cell Distribution Width 15.6 % (9.3-17.3); White Blood Count 14.5 T/CUMM (4-12)
[2020-06-16 06:00] LABS: Calcium 9.1 MG/DL (8.5-10.1); Potassium 5.5 MMOL/L (3.5-5.1)
[2020-06-16] MEDS: INSULIN LISPRO 100 UNIT/ML SUBCUT SCH ×4 (08:20→20:25)
[2020-06-16] MEDS ORDERED: PROMETHAZINE 25 MG TABLET PO PRN (14:35)
[2020-06-16] MEDS ORDERED: PROMETHAZINE INJ 12.5 MG in SODIUM CHLORIDE 0.9% 50 ML IV ONE (15:30)
[2020-06-16] MEDS ORDERED: INSULIN REGULAR 10 UNIT, CALCIUM GLUCONATE 1,000 MG in DEXTROSE 10% 250 ML IV ONE (15:30)
[2020-06-16] MEDS: ACETAMINOPHEN 325 MG TABLET PO PRN (17:36)
[2020-06-17] MEDS: CEFEPIME 1,000 MG in SODIUM CHLORIDE 0.9% 100 ML IV SCH ×4 (04:50→21:12)
[2020-06-17] MEDS ORDERED: LACTULOSE 20 GM/30 ML UDCUP PO PRN (07:35)
[2020-06-17 07:52] LABS: Basophils # 0.1 10*3/uL (0.0-0.2); Basophils % 0.6 % (0.0-0.8); Eosinophils # 0.5 10*3/uL (0.0-0.87); Eosinophils % 3.6 % (0.00-10.9); Hematocrit 34.1 VOL% (42.0-52.0); Hemoglobin 10.1 GM/DL (14.0-18.0); Immature Granulocytes % 0.4 %; Immature Granulocytes Absolute 0.06 #; Lymphocytes # 1.5 10*3/uL (1.4-4.0); Lymphocytes % 10.9 % (21.2-54.2); Mean Corpuscular HGB Conc 29.6 GM/DL (32-36); Mean Corpuscular Volume 96.3 FL (87-102); Mean Platelet Volume 10.3 FL (9.6-12.0); Monocytes % 6.2 % (1.7-12.7); Neutrophils % 78.3 % (38.7-73.9); Platelet Count 228 T/CUMM (130-400); Red Blood Count 3.54 MC/CUMM (3.8-5.5); Red Cell Distribution Width 15.4 % (9.3-17.3); White Blood Count 14.1 T/CUMM (4-12)
[2020-06-17 08:15] LABS: Calcium 8.7 MG/DL (8.5-10.1); Osmolality,Calculated 301.6 MOS/KG (273-304); Potassium 4.9 MMOL/L (3.5-5.1)
[2020-06-17] MEDS: INSULIN LISPRO 100 UNIT/ML SUBCUT SCH ×4 (09:03→21:13)
[2020-06-17] MEDS: CALCITONIN NASAL SPRAY 3.7 ML BOTTLE ONE NARE SCH (09:23)
[2020-06-17] MEDS: amLODIPine 10 MG TABLET PO SCH (09:25)
[2020-06-17] MEDS: CHOLECALCIFEROL 1,000 UNIT TABLET PO SCH (09:26)
[2020-06-17] MEDS: ASCORBIC ACID 500 MG TABLET PO SCH ×2 (09:26→21:12)
[2020-06-17] MEDS: OXYBUTYNIN XL 15 MG TABLET PO SCH (09:27)
[2020-06-17] MEDS: ASPIRIN EC 81 MG TABLET PO SCH (09:27)
[2020-06-17] MEDS: DIVALPROEX ER 500 MG TABLET PO SCH ×2 (09:28→09:31)
[2020-06-17] MEDS: ONDANSETRON 4 MG/2 ML VIAL IV PRN (09:44)
[2020-06-17] MEDS: ACETAMINOPHEN 325 MG TABLET PO PRN (12:06)
[2020-06-17] MEDS: SODIUM CHLORIDE 0.9% 1,000 ML IV SCH ×3 (12:08→21:11)
[2020-06-18] MEDS: CEFEPIME 1,000 MG in SODIUM CHLORIDE 0.9% 100 ML IV SCH ×2 (04:30→11:04)
[2020-06-18] MEDS: SODIUM CHLORIDE 0.9% 1,000 ML IV SCH (05:59)
[2020-06-18] MEDS: LEVOTHYROXINE 200 MCG TABLET PO SCH (06:01)
[2020-06-18 06:42] LABS: Basophils # 0.1 10*3/uL (0.0-0.2); Basophils % 0.5 % (0.0-0.8); Eosinophils # 0.9 10*3/uL (0.0-0.87); Eosinophils % 6.7 % (0.00-10.9); Hematocrit 30.6 VOL% (42.0-52.0); Hemoglobin 9.8 GM/DL (14.0-18.0); Immature Granulocytes % 0.3 %; Immature Granulocytes Absolute 0.04 #; Lymphocytes # 1.7 10*3/uL (1.4-4.0); Lymphocytes % 13.1 % (21.2-54.2); Mean Corpuscular Volume 90.3 FL (87-102); Mean Platelet Volume 10.7 FL (9.6-12.0); Monocytes % 6.1 % (1.7-12.7); Neutrophils % 73.3 % (38.7-73.9); Platelet Count 208 T/CUMM (130-400); Red Blood Count 3.39 MC/CUMM (3.8-5.5); Red Cell Distribution Width 14.9 % (9.3-17.3); White Blood Count 12.7 T/CUMM (4-12)
[2020-06-18 07:10] LABS: Osmolality,Calculated 300.4 MOS/KG (273-304); Potassium 4.3 MMOL/L (3.5-5.1)
[2020-06-18] MEDS: INSULIN LISPRO 100 UNIT/ML SUBCUT SCH ×4 (08:33→21:31)
[2020-06-18] MEDS: CHOLECALCIFEROL 1,000 UNIT TABLET PO SCH (10:54)
[2020-06-18] MEDS: ASPIRIN EC 81 MG TABLET PO SCH (10:54)
[2020-06-18] MEDS: ASCORBIC ACID 500 MG TABLET PO SCH ×2 (10:55→21:31)
[2020-06-18] MEDS: amLODIPine 10 MG TABLET PO SCH (10:55)
[2020-06-18] MEDS: OXYBUTYNIN XL 15 MG TABLET PO SCH (10:55)
[2020-06-18] MEDS: CALCITONIN NASAL SPRAY 3.7 ML BOTTLE ONE NARE SCH (11:03)
[2020-06-18] MEDS: DIVALPROEX ER 500 MG TABLET PO SCH (11:03)
[2020-06-18] MEDS: DOXYCYCLINE HYCLATE 100 MG CAPSULE PO SCH (21:31)
[2020-06-19] MEDS: LEVOTHYROXINE 200 MCG TABLET PO SCH (06:25)
[2020-06-19 06:39] LABS: Calcium 8.8 MG/DL (8.5-10.1); Osmolality,Calculated 291.7 MOS/KG (273-304); Potassium 4.2 MMOL/L (3.5-5.1)
[2020-06-19] MEDS ORDERED: MAGNESIUM OXIDE 400 MG TABLET PO ONE (07:27)
[2020-06-19] MEDS: INSULIN LISPRO 100 UNIT/ML SUBCUT SCH ×2 (08:10→12:05)
[2020-06-19] MEDS: ASPIRIN EC 81 MG TABLET PO SCH (08:48)
[2020-06-19] MEDS: OXYBUTYNIN XL 15 MG TABLET PO SCH (08:48)
[2020-06-19] MEDS: CHOLECALCIFEROL 1,000 UNIT TABLET PO SCH (08:49)
[2020-06-19] MEDS: DOXYCYCLINE HYCLATE 100 MG CAPSULE PO SCH (08:49)
[2020-06-19] MEDS: amLODIPine 10 MG TABLET PO SCH (08:49)
[2020-06-19] MEDS: ASCORBIC ACID 500 MG TABLET PO SCH (08:49)
[2020-06-19] MEDS: DIVALPROEX ER 500 MG TABLET PO SCH (08:50)
[2020-06-19] MEDS: CALCITONIN NASAL SPRAY 3.7 ML BOTTLE ONE NARE SCH (09:46)
[2020-06-19 11:38] VITALS: BP 125/70
== END 2020-06-19 15:30 | disposition home health service (06) | DRG 640 ==
LOC: EDBD → EDUNIT# → N.ED 23:49 → N.EDINP 06-15 03:03 → N.TELEN 06-15 07:48
PROVIDERS: ADMIT Internal Medicine; ATTEND Internal Medicine

== ENCOUNTER 2020-08-21 10:10 | Inpatient (IN) ==
[2020-08-21] MEDS ORDERED: SODIUM CHLORIDE 0.9% 2,000 ML IV STA (10:28)
[2020-08-21] MEDS ORDERED: CEFEPIME 1,000 MG in SODIUM CHLORIDE 0.9% 100 ML IV STA (10:35)
[2020-08-21] MEDS ORDERED: VANCOMYCIN INJ 1,250 MG in SODIUM CHLORIDE 0.9% 250 ML IV STA (10:35)
[2020-08-21 11:02] LABS: Basophils # 0.1 10*3/uL (0.0-0.2); Basophils % 0.7 % (0.0-0.8); Eosinophils # 0.6 10*3/uL (0.0-0.87); Eosinophils % 4.3 % (0.00-10.9); Hematocrit 30.2 VOL% (42.0-52.0); Hemoglobin 10.1 GM/DL (14.0-18.0); Immature Granulocytes % 0.4 %; Immature Granulocytes Absolute 0.05 #; Lymphocytes # 1.7 10*3/uL (1.4-4.0); Lymphocytes % 12.9 % (21.2-54.2); Mean Corpuscular HGB Conc 33.4 GM/DL (32-36); Mean Corpuscular Volume 89.6 FL (87-102); Mean Platelet Volume 9.9 FL (9.6-12.0); Monocytes % 4.8 % (1.7-12.7); Neutrophils % 76.9 % (38.7-73.9); Platelet Count 258 T/CUMM (130-400); Red Blood Count 3.37 MC/CUMM (3.8-5.5); Red Cell Distribution Width 13.2 % (9.3-17.3); White Blood Count 13.1 T/CUMM (4-12)
[2020-08-21 11:22] LABS: Calcium 8.3 MG/DL (8.5-10.1); Osmolality,Calculated 294.3 MOS/KG (273-304); Potassium 4.2 MMOL/L (3.5-5.1)
[2020-08-21 11:40] LABS: Bacteria,Urine Many /HPF (Few); Bilirubin,Urine Small mg/dL (Negative); Blood, Urine Negative (Negative); Glucose,Urine (UA) Negative (Negative); Ketones,Urine Negative (Negative); Nitrite,Urine Negative (Negative); Protein,Urine >=500 MG/DL; RBC,Urine 25 /HPF (0-4); Urine Appearance CLOUDY (Clear); Urine Color Yellow (Yellow); Urine Specific Gravity 1.013 (1.001-1.035); Urine Urobilinogen < 2.0 EU/DL (0.2-1.0)
[2020-08-21] MEDS ORDERED: ONDANSETRON 4 MG/2 ML VIAL IV PRN (12:39)
[2020-08-21] MEDS ORDERED: NOREPINEPHRINE 8 MG in SODIUM CHLORIDE 0.9% 242 ML IV PRN (12:39)
[2020-08-21] MEDS ORDERED: ALUMINUM/MAGNES/SIMETH MAX STR 30 ML UDCUP PO PRN (12:39)
[2020-08-21] MEDS: SODIUM CHLORIDE 0.9% 1,000 ML IV SCH ×2 (16:50→23:01)
[2020-08-21] MEDS: HYDROCORTISONE 100 MG VIAL IV SCH ×2 (16:54→23:01)
[2020-08-21] MEDS ORDERED: VANCOMYCIN INJ 1,000 MG in SODIUM CHLORIDE 0.9% 250 ML IV SCH (21:00)
[2020-08-21] MEDS: CEFEPIME 1,000 MG in SODIUM CHLORIDE 0.9% 100 ML IV SCH (23:00)
[2020-08-21] MEDS ORDERED: VANCOMYCIN INJ 1,250 MG in SODIUM CHLORIDE 0.9% 250 ML IV SCH (23:30)
[2020-08-22 05:06] LABS: Calcium 8.5 MG/DL (8.5-10.1); Osmolality,Calculated 293.8 MOS/KG (273-304); Potassium 4.2 MMOL/L (3.5-5.1)
[2020-08-22] MEDS: LEVOTHYROXINE 200 MCG TABLET PO SCH (06:31)
[2020-08-22] MEDS: SODIUM CHLORIDE 0.9% 1,000 ML IV SCH ×3 (06:32→14:13)
[2020-08-22] MEDS: HYDROCORTISONE 100 MG VIAL IV SCH ×2 (07:27→21:51)
[2020-08-22] MEDS: ACETAMINOPHEN 325 MG TABLET PO PRN (07:32)
[2020-08-22] MEDS: PANTOPRAZOLE 40 MG TABLET PO SCH (10:17)
[2020-08-22] MEDS: DIVALPROEX ER 500 MG TABLET PO SCH (10:17)
[2020-08-22] MEDS: ASPIRIN EC 81 MG TABLET PO SCH (10:17)
[2020-08-22] MEDS: LEVOFLOXACIN INJ 500 MG/100 ML PREMIX IV SCH (10:19)
[2020-08-22] MEDS: CEFEPIME 1,000 MG in SODIUM CHLORIDE 0.9% 100 ML IV SCH ×2 (10:19→21:53)
[2020-08-22] MEDS: MENTHOL/ZINC OXIDE OINT 71 GM JAR TOP SCH (14:45)
[2020-08-22] MEDS: NYSTATIN CREAM 15 GM TUBE TOP SCH (14:45)
[2020-08-23] MEDS: ACETAMINOPHEN 325 MG TABLET PO PRN ×2 (01:56→22:05)
[2020-08-23 05:49] LABS: Basophils # 0.1 10*3/uL (0.0-0.2); Basophils % 0.6 % (0.0-0.8); Eosinophils # 0.1 10*3/uL (0.0-0.87); Eosinophils % 0.5 % (0.00-10.9); Hemoglobin 10.5 GM/DL (14.0-18.0); Immature Granulocytes % 1.2 %; Immature Granulocytes Absolute 0.13 #; Lymphocytes # 2.4 10*3/uL (1.4-4.0); Lymphocytes % 22.7 % (21.2-54.2); Mean Corpuscular HGB Conc 33.9 GM/DL (32-36); Mean Corpuscular Volume 88.1 FL (87-102); Monocytes % 5.1 % (1.7-12.7); Neutrophils % 69.9 % (38.7-73.9); Platelet Count 259 T/CUMM (130-400); Red Blood Count 3.52 MC/CUMM (3.8-5.5); Red Cell Distribution Width 13.2 % (9.3-17.3); White Blood Count 10.6 T/CUMM (4-12)
[2020-08-23 06:12] LABS: Calcium 8.5 MG/DL (8.5-10.1); Osmolality,Calculated 287.8 MOS/KG (273-304); Potassium 3.6 MMOL/L (3.5-5.1)
[2020-08-23] MEDS: LEVOTHYROXINE 200 MCG TABLET PO SCH (07:09)
[2020-08-23] MEDS: SODIUM CHLORIDE 0.9% 1,000 ML IV SCH ×3 (07:11→08:32)
[2020-08-23] MEDS: LEVOFLOXACIN INJ 500 MG/100 ML PREMIX IV SCH (08:02)
[2020-08-23] MEDS: HYDROCORTISONE 100 MG VIAL IV SCH ×2 (08:02→22:05)
[2020-08-23] MEDS: MULTIVITAMIN (CENTRUM) TABLET PO SCH (08:03)
[2020-08-23] MEDS: ASPIRIN EC 81 MG TABLET PO SCH (08:03)
[2020-08-23] MEDS: PANTOPRAZOLE 40 MG TABLET PO SCH (08:03)
[2020-08-23] MEDS: DIVALPROEX ER 500 MG TABLET PO SCH (08:03)
[2020-08-23] MEDS: NYSTATIN CREAM 15 GM TUBE TOP SCH (08:03)
[2020-08-23] MEDS: CEFEPIME 1,000 MG in SODIUM CHLORIDE 0.9% 100 ML IV SCH (09:59)
[2020-08-23] MEDS: MENTHOL/ZINC OXIDE OINT 71 GM JAR TOP SCH (12:32)
[2020-08-23 17:22] LABS: Total Protein 24 Hr Ur Result 504 MG/24HR (0-149.1); Total Volume,Urine 2522 ML (400-2000)
[2020-08-24] MEDS: ZALEPLON 5 MG CAPSULE PO PRN (01:58)
[2020-08-24] MEDS: SODIUM CHLORIDE 0.9% 1,000 ML IV SCH ×3 (04:28→17:21)
[2020-08-24 05:20] LABS: Basophils # 0.1 10*3/uL (0.0-0.2); Basophils % 0.6 % (0.0-0.8); Eosinophils # 0.1 10*3/uL (0.0-0.87); Eosinophils % 0.7 % (0.00-10.9); Hematocrit 32.8 VOL% (42.0-52.0); Immature Granulocytes % 0.5 %; Immature Granulocytes Absolute 0.05 #; Lymphocytes # 2.7 10*3/uL (1.4-4.0); Lymphocytes % 25.6 % (21.2-54.2); Mean Corpuscular HGB Conc 33.5 GM/DL (32-36); Mean Corpuscular Volume 88.4 FL (87-102); Mean Platelet Volume 9.8 FL (9.6-12.0); Monocytes % 4.7 % (1.7-12.7); Neutrophils % 67.9 % (38.7-73.9); Platelet Count 268 T/CUMM (130-400); Red Blood Count 3.71 MC/CUMM (3.8-5.5); Red Cell Distribution Width 13.1 % (9.3-17.3); White Blood Count 10.5 T/CUMM (4-12)
[2020-08-24 05:32] LABS: Calcium 8.2 MG/DL (8.5-10.1); Calcium 8.6 MG/DL (8.5-10.1); Osmolality,Calculated 281.1 MOS/KG (273-304); Osmolality,Calculated 284.8 MOS/KG (273-304); Potassium 3.3 MMOL/L (3.5-5.1); Potassium 3.4 MMOL/L (3.5-5.1)
[2020-08-24] MEDS: LEVOTHYROXINE 200 MCG TABLET PO SCH (06:22)
[2020-08-24] MEDS: amLODIPine 10 MG TABLET PO SCH (09:55)
[2020-08-24] MEDS: PANTOPRAZOLE 40 MG TABLET PO SCH (09:55)
[2020-08-24] MEDS: ASPIRIN EC 81 MG TABLET PO SCH (09:55)
[2020-08-24] MEDS: MULTIVITAMIN (CENTRUM) TABLET PO SCH (09:55)
[2020-08-24] MEDS: LEVOFLOXACIN INJ 500 MG/100 ML PREMIX IV SCH (09:58)
[2020-08-24] MEDS: NYSTATIN CREAM 15 GM TUBE TOP SCH (10:09)
[2020-08-24] MEDS: DIVALPROEX ER 500 MG TABLET PO SCH (10:10)
[2020-08-24] MEDS ORDERED: MAGNESIUM SULF RIDER 2 GM/50 ML PREMIX IV ONE (11:00)
[2020-08-24] MEDS ORDERED: POTASSIUM CHLORIDE 20 MEQ TABLET PO ONE (11:00)
[2020-08-24] MEDS: MENTHOL/ZINC OXIDE OINT 71 GM JAR TOP SCH (11:40)
[2020-08-24] MEDS: HYDROCORTISONE 100 MG VIAL IV SCH ×2 (13:47→22:04)
[2020-08-25] MEDS: ZALEPLON 5 MG CAPSULE PO PRN (00:53)
[2020-08-25] MEDS: SODIUM CHLORIDE 0.9% 1,000 ML IV SCH (05:13)
[2020-08-25] MEDS: LEVOTHYROXINE 200 MCG TABLET PO SCH (06:45)
[2020-08-25 07:29] LABS: Basophils # 0.1 10*3/uL (0.0-0.2); Basophils % 0.6 % (0.0-0.8); Eosinophils # 0.1 10*3/uL (0.0-0.87); Eosinophils % 1.2 % (0.00-10.9); Hemoglobin 11.6 GM/DL (14.0-18.0); Immature Granulocytes % 0.3 %; Immature Granulocytes Absolute 0.04 #; Lymphocytes # 3.1 10*3/uL (1.4-4.0); Lymphocytes % 25.8 % (21.2-54.2); Mean Corpuscular HGB Conc 34.1 GM/DL (32-36); Mean Corpuscular Volume 87.2 FL (87-102); Mean Platelet Volume 9.9 FL (9.6-12.0); Monocytes % 5.9 % (1.7-12.7); Neutrophils % 66.2 % (38.7-73.9); Platelet Count 277 T/CUMM (130-400); Red Cell Distribution Width 13.3 % (9.3-17.3)
[2020-08-25 07:50] LABS: Calcium 8.7 MG/DL (8.5-10.1); Osmolality,Calculated 281.1 MOS/KG (273-304); Potassium 3.3 MMOL/L (3.5-5.1)
[2020-08-25] MEDS ORDERED: LEVOFLOXACIN 500 MG TABLET PO SCH (09:00)
[2020-08-25] MEDS: amLODIPine 10 MG TABLET PO SCH (09:09)
[2020-08-25] MEDS: HYDROCORTISONE 100 MG VIAL IV SCH (09:09)
[2020-08-25] MEDS: MULTIVITAMIN (CENTRUM) TABLET PO SCH (09:10)
[2020-08-25] MEDS: DIVALPROEX ER 500 MG TABLET PO SCH (09:10)
[2020-08-25] MEDS: ASPIRIN EC 81 MG TABLET PO SCH (09:10)
[2020-08-25] MEDS: PANTOPRAZOLE 40 MG TABLET PO SCH (09:10)
[2020-08-25] MEDS ORDERED: POTASSIUM CHLORIDE 20 MEQ TABLET PO ONE (11:00)
[2020-08-25] MEDS: MENTHOL/ZINC OXIDE OINT 71 GM JAR TOP SCH (11:35)
[2020-08-25] MEDS: NYSTATIN CREAM 15 GM TUBE TOP SCH (11:35)
[2020-08-25 16:09] VITALS: BP 134/79
== END 2020-08-25 16:55 | disposition home or self-care (01) | DRG 698 ==
LOC: EDUNIT# → N.ED 10:10 → SUATTDRO 12:37 → N.ICU 12:37 → N.5E 08-22 16:47
PROVIDERS: ADMIT Internal Medicine; ATTEND Internal Medicine

== ENCOUNTER 2020-09-29 07:34 | Inpatient (IN) ==
[2020-09-29] MEDS ORDERED: SODIUM CHLORIDE 0.9% 1,000 ML IV STA (07:54)
[2020-09-29 08:30] LABS: Basophils # 0.1 10*3/uL (0.0-0.2); Basophils % 0.3 % (0.0-0.8); Eosinophils % 0.1 % (0.00-10.9); Hemoglobin 8.6 GM/DL (14.0-18.0); Immature Granulocytes % 1.1 %; Immature Granulocytes Absolute 0.24 #; Lymphocytes # 0.7 10*3/uL (1.4-4.0); Lymphocytes % 3.3 % (21.2-54.2); Mean Corpuscular HGB Conc 31.9 GM/DL (32-36); Mean Corpuscular Volume 91.8 FL (87-102); Mean Platelet Volume 9.6 FL (9.6-12.0); Monocytes % 7.4 % (1.7-12.7); Neutrophils % 87.8 % (38.7-73.9); Platelet Count 297 T/CUMM (130-400); Red Blood Count 2.94 MC/CUMM (3.8-5.5); White Blood Count 21.1 T/CUMM (4-12)
[2020-09-29 08:39] LABS: Bacteria,Urine Many /HPF (Few); Bilirubin,Urine Negative (Negative); Blood, Urine Small mg/dL (Negative); Glucose,Urine (UA) Negative (Negative); Hyaline Casts,Urine 254 /LPF (0-3); Ketones,Urine Negative (Negative); Mucus,Urine Many /LPF (Occasional); Nitrite,Urine Negative (Negative); Protein,Urine 30 MG/DL; RBC,Urine 101 /HPF (0-4); Squamous Epithelial Cell,Urine Occasional /HPF (0-10); Urine Appearance CLOUDY (Clear); Urine Color Amber (Yellow)
[2020-09-29 08:54] LABS: Bilirubin,Total 0.8 MG/DL (0.20-1.00); Calcium 8.5 MG/DL (8.5-10.1); Potassium 4.1 MMOL/L (3.5-5.1); Total Protein 6.6 G/DL (6.4-8.2)
[2020-09-29 09:08] LABS: Band Neutrophils 1 % (0-10); Hypochromasia 1+; Lymphocytes 3 % (20-55); Microcytosis 1+; Platelet Estimate Adequate; Segmented Neutrophils 90 % (50-85); Total Cells Counted 100
[2020-09-29] MEDS ORDERED: GENTAMICIN INJ 120 MG in SODIUM CHLORIDE 0.9% 100 ML IV STA (10:41)
[2020-09-29] MEDS ORDERED: CLINDAMYCIN INJ 600 MG/50 ML PREMIX IV STA (10:42)
[2020-09-29] MEDS ORDERED: SODIUM CHLORIDE 0.9% 1,600 ML IV STA (11:56)
[2020-09-29] MEDS ORDERED: ONDANSETRON 4 MG/2 ML VIAL IV PRN (12:01)
[2020-09-29] MEDS ORDERED: GLUCAGON 1 MG VIAL IM PRN (12:01)
[2020-09-29] MEDS ORDERED: guaiFENesin/DM ER 600-30 MG TABLET PO PRN (12:01)
[2020-09-29] MEDS ORDERED: ALBUTEROL 2.5 MG/3 ML NEB RESP TX PRN (12:01)
[2020-09-29] MEDS ORDERED: DEXTROSE 50% 25 GM/50 ML VIAL IV PRN (12:01)
[2020-09-29] MEDS: LEVOFLOXACIN INJ 750 MG/150 ML PREMIX IV SCH (13:40)
[2020-09-29] MEDS: SODIUM CHLORIDE 0.9% 1,000 ML IV SCH (13:40)
[2020-09-29] MEDS: ENOXAPARIN 40 MG/0.4 ML SYRINGE SUBCUT SCH (14:00)
[2020-09-29] MEDS ORDERED: NOREPINEPHRINE 8 MG in SODIUM CHLORIDE 0.9% 242 ML IV PRN (14:05)
[2020-09-29] MEDS ORDERED: NOREPINEPHRINE 4 MG/4 ML VIAL IV ONE (16:52)
[2020-09-29] MEDS ORDERED: GENTAMICIN INJ 120 MG/100 ML PREMIX IV SCH (21:00)
[2020-09-29] MEDS: GENTAMICIN INJ 560 MG in SODIUM CHLORIDE 0.9% 100 ML IV SCH (22:00)
[2020-09-29] MEDS: DOCUSATE SODIUM 100 MG CAPSULE PO SCH (22:00)
[2020-09-29] MEDS: INSULIN REGULAR 100 UNIT/ML SUBCUT SCH (22:23)
[2020-09-30 05:11] LABS: Basophils # 0.1 10*3/uL (0.0-0.2); Basophils % 0.2 % (0.0-0.8); Hematocrit 28.9 VOL% (42.0-52.0); Hemoglobin 9.4 GM/DL (14.0-18.0); Immature Granulocytes Absolute 0.26 #; Lymphocytes # 0.7 10*3/uL (1.4-4.0); Lymphocytes % 2.6 % (21.2-54.2); Mean Corpuscular HGB Conc 32.5 GM/DL (32-36); Mean Corpuscular Volume 89.8 FL (87-102); Mean Platelet Volume 9.5 FL (9.6-12.0); Monocytes % 7.6 % (1.7-12.7); Neutrophils % 88.6 % (38.7-73.9); Platelet Count 384 T/CUMM (130-400); Red Blood Count 3.22 MC/CUMM (3.8-5.5); Red Cell Distribution Width 13.1 % (9.3-17.3); White Blood Count 26.2 T/CUMM (4-12)
[2020-09-30 05:35] LABS: Calcium 8.7 MG/DL (8.5-10.1); Osmolality,Calculated 286.5 MOS/KG (273-304)
[2020-09-30 05:36] LABS: Band Neutrophils 4 % (0-10); Hypochromasia 1+; Lymphocytes 2 % (20-55); Microcytosis 1+; Platelet Estimate Adequate; Segmented Neutrophils 91 % (50-85); Total Cells Counted 100
[2020-09-30] MEDS: SODIUM CHLORIDE 0.9% 1,000 ML IV SCH ×2 (06:40→18:12)
[2020-09-30] MEDS ORDERED: HYDROCORTISONE 100 MG VIAL IV ONE (06:40)
[2020-09-30] MEDS: INSULIN REGULAR 100 UNIT/ML SUBCUT SCH ×5 (06:40→21:05)
[2020-09-30] MEDS: MEROPENEM 500 MG in SODIUM CHLORIDE 0.9% 100 ML IV SCH ×3 (08:24→20:16)
[2020-09-30] MEDS: DOCUSATE SODIUM 100 MG CAPSULE PO SCH ×2 (10:58→20:16)
[2020-09-30] MEDS: PANTOPRAZOLE 40 MG TABLET PO SCH (10:58)
[2020-09-30] MEDS: HYDROCORTISONE 100 MG VIAL IV SCH ×2 (12:46→18:48)
[2020-09-30] MEDS: ENOXAPARIN 40 MG/0.4 ML SYRINGE SUBCUT SCH (12:47)
[2020-09-30] MEDS: LEVOFLOXACIN INJ 750 MG/150 ML PREMIX IV SCH (12:47)
[2020-09-30] MEDS: GENTAMICIN INJ 560 MG in SODIUM CHLORIDE 0.9% 100 ML IV SCH (21:04)
[2020-10-01] MEDS: HYDROCORTISONE 100 MG VIAL IV SCH ×4 (00:38→23:45)
[2020-10-01] MEDS: MEROPENEM 500 MG in SODIUM CHLORIDE 0.9% 100 ML IV SCH ×4 (01:58→20:38)
[2020-10-01] MEDS: ACETAMINOPHEN 325 MG TABLET PO PRN (02:02)
[2020-10-01 06:55] LABS: Basophils % 0.1 % (0.0-0.8); Hematocrit 27.5 VOL% (42.0-52.0); Hemoglobin 8.9 GM/DL (14.0-18.0); Immature Granulocytes % 0.7 %; Immature Granulocytes Absolute 0.12 #; Lymphocytes # 0.7 10*3/uL (1.4-4.0); Lymphocytes % 4.4 % (21.2-54.2); Mean Corpuscular HGB Conc 32.4 GM/DL (32-36); Mean Corpuscular Volume 88.7 FL (87-102); Mean Platelet Volume 9.4 FL (9.6-12.0); Monocytes % 5.3 % (1.7-12.7); Neutrophils % 89.5 % (38.7-73.9); Platelet Count 337 T/CUMM (130-400); Red Cell Distribution Width 13.3 % (9.3-17.3); White Blood Count 16.3 T/CUMM (4-12)
[2020-10-01 07:17] LABS: Alanine Aminotransferase 9 U/L (16-61); Albumin 1.7 G/DL (3.4-5.0); Alkaline Phosphatase 93 U/L (45-117); Aspartate Amino Transferase 10 U/L (0-37); Bilirubin,Total < 0.39 MG/DL (0.20-1.00); Blood Urea Nitrogen 36 MG/DL (7-18); Calcium 8.6 MG/DL (8.5-10.1); Carbon Dioxide 24 MMOL/L (21-32); Estimated Glom Filtration Rate 165 ML/MIN; Glucose 157 MG/DL (74-106); Osmolality,Calculated 296.8 MOS/KG (273-304); Potassium 3.5 MMOL/L (3.5-5.1); Sodium 144 MMOL/L (136-145); Total Protein 6.4 G/DL (6.4-8.2)
[2020-10-01 07:21] LABS: Band Neutrophils 12 % (0-10); Lymphocytes 8 % (20-55); Segmented Neutrophils 76 % (50-85); Total Cells Counted 100
[2020-10-01] MEDS: SODIUM CHLORIDE 0.9% 1,000 ML IV SCH (07:21)
[2020-10-01 07:22] LABS: Anisocytosis 2+; Platelet Estimate Normal
[2020-10-01] MEDS: INSULIN REGULAR 100 UNIT/ML SUBCUT SCH ×4 (08:33→21:55)
[2020-10-01] MEDS: DOCUSATE SODIUM 100 MG CAPSULE PO SCH ×2 (09:11→20:37)
[2020-10-01] MEDS: PANTOPRAZOLE 40 MG TABLET PO SCH (09:12)
[2020-10-01] MEDS ORDERED: ZALEPLON 5 MG CAPSULE PO PRN (09:51)
[2020-10-01] MEDS: LEVOFLOXACIN INJ 750 MG/150 ML PREMIX IV SCH (12:13)
[2020-10-01] MEDS: ENOXAPARIN 40 MG/0.4 ML SYRINGE SUBCUT SCH (12:13)
[2020-10-01] MEDS: ASPIRIN EC 81 MG TABLET PO SCH (12:54)
[2020-10-01] MEDS: OXYBUTYNIN XL 15 MG TABLET PO SCH (12:54)
[2020-10-01] MEDS: DIVALPROEX ER 500 MG TABLET PO SCH (12:54)
[2020-10-01] MEDS: GENTAMICIN INJ 560 MG in SODIUM CHLORIDE 0.9% 100 ML IV SCH (23:45)
[2020-10-02] MEDS: MEROPENEM 500 MG in SODIUM CHLORIDE 0.9% 100 ML IV SCH ×4 (03:00→21:39)
[2020-10-02] MEDS: SODIUM CHLORIDE 0.9% 1,000 ML IV SCH ×3 (03:55→21:39)
[2020-10-02 05:11] LABS: Basophils % 0.1 % (0.0-0.8); Hematocrit 29.1 VOL% (42.0-52.0); Hemoglobin 9.1 GM/DL (14.0-18.0); Immature Granulocytes % 0.8 %; Immature Granulocytes Absolute 0.13 #; Lymphocytes # 0.8 10*3/uL (1.4-4.0); Lymphocytes % 4.9 % (21.2-54.2); Mean Corpuscular HGB Conc 31.3 GM/DL (32-36); Mean Corpuscular Volume 90.4 FL (87-102); Mean Platelet Volume 9.1 FL (9.6-12.0); Monocytes % 4.2 % (1.7-12.7); Platelet Count 397 T/CUMM (130-400); Red Blood Count 3.22 MC/CUMM (3.8-5.5); Red Cell Distribution Width 13.4 % (9.3-17.3); White Blood Count 15.6 T/CUMM (4-12)
[2020-10-02 05:20] LABS: INR 1.1; PT Patient Result 12.4 SECS (10.5-12.0)
[2020-10-02 05:40] LABS: Calcium 8.7 MG/DL (8.5-10.1); Osmolality,Calculated 299.4 MOS/KG (273-304); Potassium 3.2 MMOL/L (3.5-5.1)
[2020-10-02 05:47] LABS: Band Neutrophils 1 % (0-10); Hypochromasia 1+; Lymphocytes 2 % (20-55); Microcytosis 1+; Ovalocytes Slight; Segmented Neutrophils 93 % (50-85); Total Cells Counted 100
[2020-10-02] MEDS: POTASSIUM CHLORIDE RIDER 10 MEQ/100 ML PREMIX IV PRN ×3 (06:15→10:08)
[2020-10-02] MEDS: LEVOTHYROXINE 100 MCG TABLET PO SCH (06:23)
[2020-10-02] MEDS ORDERED: MAGNESIUM SULF RIDER 4 GM/100 ML PREMIX IV PRN (07:53)
[2020-10-02] MEDS: INSULIN REGULAR 100 UNIT/ML SUBCUT SCH ×4 (08:00→22:18)
[2020-10-02] MEDS: VANCOMYCIN INJ 1,250 MG in SODIUM CHLORIDE 0.9% 250 ML IV SCH ×2 (08:17→21:38)
[2020-10-02] MEDS: DOCUSATE SODIUM 100 MG CAPSULE PO SCH ×2 (09:00→21:39)
[2020-10-02] MEDS: LACTATED RINGERS 1,000 ML IV SCH (10:22)
[2020-10-02] MEDS ORDERED: propofoL 200 MG/20 ML VIAL IV ONE (11:17)
[2020-10-02] MEDS: KETOROLAC 30 MG/1 ML VIAL IV PRN ×2 (13:20→21:40)
[2020-10-02] MEDS: HYDROCORTISONE 100 MG VIAL IV SCH ×2 (13:27→23:49)
[2020-10-02] MEDS: PANTOPRAZOLE 40 MG TABLET PO SCH (16:42)
[2020-10-02] MEDS: ASPIRIN EC 81 MG TABLET PO SCH (16:42)
[2020-10-02] MEDS: OXYBUTYNIN XL 15 MG TABLET PO SCH (16:42)
[2020-10-02] MEDS: DIVALPROEX ER 500 MG TABLET PO SCH (16:43)
[2020-10-02] MEDS: MAGNESIUM SULF RIDER 2 GM/50 ML PREMIX IV PRN (23:49)
[2020-10-03] MEDS: MEROPENEM 500 MG in SODIUM CHLORIDE 0.9% 100 ML IV SCH ×4 (02:53→20:12)
[2020-10-03] MEDS: LEVOTHYROXINE 100 MCG TABLET PO SCH (05:40)
[2020-10-03 05:49] LABS: Basophils % 0.2 % (0.0-0.8); Eosinophils % 0.1 % (0.00-10.9); Hematocrit 30.9 VOL% (42.0-52.0); Hemoglobin 9.8 GM/DL (14.0-18.0); Immature Granulocytes % 1.5 %; Immature Granulocytes Absolute 0.26 #; Lymphocytes # 1.1 10*3/uL (1.4-4.0); Lymphocytes % 6.5 % (21.2-54.2); Mean Corpuscular HGB Conc 31.7 GM/DL (32-36); Mean Corpuscular Volume 90.1 FL (87-102); Mean Platelet Volume 8.8 FL (9.6-12.0); Monocytes % 3.1 % (1.7-12.7); Neutrophils % 88.6 % (38.7-73.9); Platelet Count 384 T/CUMM (130-400); Red Blood Count 3.43 MC/CUMM (3.8-5.5); Red Cell Distribution Width 13.2 % (9.3-17.3)
[2020-10-03 06:14] LABS: Calcium 8.4 MG/DL (8.5-10.1); Osmolality,Calculated 279.5 MOS/KG (273-304); Potassium 3.1 MMOL/L (3.5-5.1)
[2020-10-03] MEDS: POTASSIUM CHLORIDE RIDER 10 MEQ/100 ML PREMIX IV PRN ×4 (07:01→13:35)
[2020-10-03] MEDS: INSULIN REGULAR 100 UNIT/ML SUBCUT SCH ×3 (07:49→17:50)
[2020-10-03] MEDS: LACTATED RINGERS 1,000 ML IV SCH (08:00)
[2020-10-03] MEDS: KETOROLAC 30 MG/1 ML VIAL IV PRN ×2 (08:23→23:06)
[2020-10-03] MEDS: VANCOMYCIN INJ 1,250 MG in SODIUM CHLORIDE 0.9% 250 ML IV SCH ×2 (08:34→20:59)
[2020-10-03] MEDS: DIVALPROEX ER 500 MG TABLET PO SCH (11:04)
[2020-10-03] MEDS: ASPIRIN EC 81 MG TABLET PO SCH (11:04)
[2020-10-03] MEDS: DOCUSATE SODIUM 100 MG CAPSULE PO SCH (11:04)
[2020-10-03] MEDS: PANTOPRAZOLE 40 MG TABLET PO SCH (11:05)
[2020-10-03] MEDS: OXYBUTYNIN XL 15 MG TABLET PO SCH (11:25)
[2020-10-03] MEDS: SODIUM CHLORIDE 0.9% 1,000 ML IV SCH (16:00)
[2020-10-04] MEDS: DOCUSATE SODIUM 100 MG CAPSULE PO SCH ×3 (00:54→20:59)
[2020-10-04] MEDS: INSULIN REGULAR 100 UNIT/ML SUBCUT SCH ×5 (00:54→22:26)
[2020-10-04] MEDS: MEROPENEM 500 MG in SODIUM CHLORIDE 0.9% 100 ML IV SCH ×4 (02:42→20:58)
[2020-10-04] MEDS: KETOROLAC 30 MG/1 ML VIAL IV PRN ×3 (04:45→20:59)
[2020-10-04] MEDS: LEVOTHYROXINE 100 MCG TABLET PO SCH (05:52)
[2020-10-04 06:50] LABS: Basophils % 0.3 % (0.0-0.8); Eosinophils # 0.2 10*3/uL (0.0-0.87); Eosinophils % 1.4 % (0.00-10.9); Hematocrit 32.6 VOL% (42.0-52.0); Hemoglobin 10.3 GM/DL (14.0-18.0); Immature Granulocytes % 1.6 %; Immature Granulocytes Absolute 0.26 #; Lymphocytes # 1.8 10*3/uL (1.4-4.0); Lymphocytes % 11.5 % (21.2-54.2); Mean Corpuscular HGB Conc 31.6 GM/DL (32-36); Mean Corpuscular Volume 88.3 FL (87-102); Neutrophils % 79.2 % (38.7-73.9); Platelet Count 366 T/CUMM (130-400); Red Blood Count 3.69 MC/CUMM (3.8-5.5); Red Cell Distribution Width 13.2 % (9.3-17.3); White Blood Count 15.9 T/CUMM (4-12)
[2020-10-04 07:03] LABS: Calcium 7.7 MG/DL (8.5-10.1); Osmolality,Calculated 279.5 MOS/KG (273-304); Potassium 3.3 MMOL/L (3.5-5.1)
[2020-10-04] MEDS: LACTATED RINGERS 1,000 ML IV SCH (08:00)
[2020-10-04] MEDS: POTASSIUM CHLORIDE RIDER 10 MEQ/100 ML PREMIX IV PRN ×4 (09:16→15:07)
[2020-10-04] MEDS: SODIUM CHLORIDE 0.9% 1,000 ML IV SCH ×2 (09:18→22:26)
[2020-10-04] MEDS: ASPIRIN EC 81 MG TABLET PO SCH (09:30)
[2020-10-04] MEDS: PANTOPRAZOLE 40 MG TABLET PO SCH (09:31)
[2020-10-04] MEDS: OXYBUTYNIN XL 15 MG TABLET PO SCH (09:31)
[2020-10-04] MEDS: DIVALPROEX ER 500 MG TABLET PO SCH (09:31)
[2020-10-04] MEDS: ACETAMINOPHEN 325 MG TABLET PO PRN ×2 (09:32→23:08)
[2020-10-04] MEDS: VANCOMYCIN INJ 1,250 MG in SODIUM CHLORIDE 0.9% 250 ML IV SCH ×2 (11:17→20:58)
[2020-10-05] MEDS: MEROPENEM 500 MG in SODIUM CHLORIDE 0.9% 100 ML IV SCH ×3 (02:31→13:06)
[2020-10-05] MEDS: SODIUM CHLORIDE 0.9% 1,000 ML IV SCH ×2 (02:31→16:03)
[2020-10-05] MEDS: KETOROLAC 30 MG/1 ML VIAL IV PRN (04:08)
[2020-10-05] MEDS: LEVOTHYROXINE 100 MCG TABLET PO SCH (05:43)
[2020-10-05 05:47] LABS: Basophils % 0.2 % (0.0-0.8); Eosinophils # 0.5 10*3/uL (0.0-0.87); Eosinophils % 2.9 % (0.00-10.9); Hematocrit 30.3 VOL% (42.0-52.0); Hemoglobin 9.5 GM/DL (14.0-18.0); Immature Granulocytes % 1.7 %; Immature Granulocytes Absolute 0.27 #; Lymphocytes # 1.9 10*3/uL (1.4-4.0); Lymphocytes % 11.5 % (21.2-54.2); Mean Corpuscular HGB Conc 31.4 GM/DL (32-36); Mean Corpuscular Volume 89.9 FL (87-102); Mean Platelet Volume 9.1 FL (9.6-12.0); Monocytes % 4.5 % (1.7-12.7); Neutrophils % 79.2 % (38.7-73.9); Platelet Count 338 T/CUMM (130-400); Red Blood Count 3.37 MC/CUMM (3.8-5.5); Red Cell Distribution Width 13.2 % (9.3-17.3); White Blood Count 16.2 T/CUMM (4-12)
[2020-10-05 06:15] LABS: Calcium 7.5 MG/DL (8.5-10.1); Osmolality,Calculated 278.7 MOS/KG (273-304); Potassium 3.7 MMOL/L (3.5-5.1)
[2020-10-05 06:26] LABS: Calcium 7.5 MG/DL (8.5-10.1); Osmolality,Calculated 285.3 MOS/KG (273-304); Potassium 3.8 MMOL/L (3.5-5.1)
[2020-10-05] MEDS: ASPIRIN EC 81 MG TABLET PO SCH (08:13)
[2020-10-05] MEDS: PANTOPRAZOLE 40 MG TABLET PO SCH (08:13)
[2020-10-05] MEDS: OXYBUTYNIN XL 15 MG TABLET PO SCH (08:13)
[2020-10-05] MEDS: LACTATED RINGERS 1,000 ML IV SCH (08:14)
[2020-10-05] MEDS: INSULIN REGULAR 100 UNIT/ML SUBCUT SCH ×4 (08:14→21:50)
[2020-10-05] MEDS: DOCUSATE SODIUM 100 MG CAPSULE PO SCH (08:14)
[2020-10-05] MEDS: ACETAMINOPHEN 325 MG TABLET PO PRN (08:22)
[2020-10-05] MEDS: VALPROIC ACID 250 MG/5 ML UDCUP PO SCH ×2 (10:12→21:48)
[2020-10-05] MEDS: VANCOMYCIN INJ 1,250 MG in SODIUM CHLORIDE 0.9% 250 ML IV SCH ×2 (10:12→20:24)
[2020-10-05] MEDS ORDERED: SODIUM PHOSPHATE INJ 30 MMOL in SODIUM CHLORIDE 0.9% 250 ML IV ONE (15:00)
[2020-10-05] MEDS: LEVOFLOXACIN INJ 500 MG/100 ML PREMIX IV SCH (16:02)
[2020-10-05] MEDS ORDERED: traZODone 50 MG TABLET PO SCH (21:00)
[2020-10-05] MEDS: oxyCODONE/ACETAMINOPHEN 5-325 MG TABLET PO SCH (21:49)
[2020-10-06] MEDS: SODIUM CHLORIDE 0.9% 1,000 ML IV SCH ×3 (01:40→17:11)
[2020-10-06] MEDS: ACETAMINOPHEN 325 MG TABLET PO PRN (03:41)
[2020-10-06 06:44] LABS: Basophils # 0.1 10*3/uL (0.0-0.2); Basophils % 0.3 % (0.0-0.8); Eosinophils # 0.6 10*3/uL (0.0-0.87); Eosinophils % 3.3 % (0.00-10.9); Hematocrit 32.1 VOL% (42.0-52.0); Hemoglobin 10.1 GM/DL (14.0-18.0); Immature Granulocytes % 2.7 %; Immature Granulocytes Absolute 0.49 #; Lymphocytes # 2.3 10*3/uL (1.4-4.0); Lymphocytes % 12.4 % (21.2-54.2); Mean Corpuscular HGB Conc 31.5 GM/DL (32-36); Mean Corpuscular Volume 90.2 FL (87-102); Mean Platelet Volume 9.2 FL (9.6-12.0); Monocytes % 5.1 % (1.7-12.7); Neutrophils % 76.2 % (38.7-73.9); Platelet Count 334 T/CUMM (130-400); Red Blood Count 3.56 MC/CUMM (3.8-5.5); Red Cell Distribution Width 13.2 % (9.3-17.3); White Blood Count 18.2 T/CUMM (4-12)
[2020-10-06] MEDS: LEVOTHYROXINE 100 MCG TABLET PO SCH (06:52)
[2020-10-06 07:08] LABS: Calcium 7.8 MG/DL (8.5-10.1); Osmolality,Calculated 282.5 MOS/KG (273-304); Potassium 3.9 MMOL/L (3.5-5.1)
[2020-10-06] MEDS: PANTOPRAZOLE 40 MG TABLET PO SCH (09:21)
[2020-10-06] MEDS: ASPIRIN EC 81 MG TABLET PO SCH (09:21)
[2020-10-06] MEDS: LACTATED RINGERS 1,000 ML IV SCH (09:21)
[2020-10-06] MEDS: VALPROIC ACID 250 MG/5 ML UDCUP PO SCH ×2 (09:21→21:49)
[2020-10-06] MEDS: oxyCODONE/ACETAMINOPHEN 5-325 MG TABLET PO SCH ×2 (09:21→21:49)
[2020-10-06] MEDS: OXYBUTYNIN XL 15 MG TABLET PO SCH (09:21)
[2020-10-06] MEDS: MAGNESIUM SULF RIDER 2 GM/50 ML PREMIX IV PRN (09:22)
[2020-10-06] MEDS: VANCOMYCIN INJ 1,250 MG in SODIUM CHLORIDE 0.9% 250 ML IV SCH ×2 (09:22→20:46)
[2020-10-06] MEDS: INSULIN REGULAR 100 UNIT/ML SUBCUT SCH ×4 (09:22→22:00)
[2020-10-06] MEDS: LEVOFLOXACIN INJ 500 MG/100 ML PREMIX IV SCH (13:01)
[2020-10-06] MEDS: NYSTATIN POWDER 15 GM BOTTLE TOP SCH ×2 (16:46→22:49)
[2020-10-06] MEDS ORDERED: traZODone 50 MG TABLET PO SCH (21:00)
[2020-10-06] MEDS ORDERED: MELATONIN 3 MG TABLET PO SCH (21:00)
[2020-10-07] MEDS: SODIUM CHLORIDE 0.9% 1,000 ML IV SCH (06:15)
[2020-10-07] MEDS: LEVOTHYROXINE 100 MCG TABLET PO SCH (06:15)
[2020-10-07] MEDS: ACETAMINOPHEN 325 MG TABLET PO PRN (06:15)
[2020-10-07] MEDS: INSULIN REGULAR 100 UNIT/ML SUBCUT SCH ×2 (09:41→12:35)
[2020-10-07] MEDS: PANTOPRAZOLE 40 MG TABLET PO SCH (11:09)
[2020-10-07] MEDS: OXYBUTYNIN XL 15 MG TABLET PO SCH (11:09)
[2020-10-07] MEDS: ASPIRIN EC 81 MG TABLET PO SCH (11:09)
[2020-10-07] MEDS: VALPROIC ACID 250 MG/5 ML UDCUP PO SCH (11:11)
[2020-10-07] MEDS: oxyCODONE/ACETAMINOPHEN 5-325 MG TABLET PO SCH (11:11)
[2020-10-07] MEDS: VANCOMYCIN INJ 1,250 MG in SODIUM CHLORIDE 0.9% 250 ML IV SCH (11:12)
[2020-10-07] MEDS: NYSTATIN POWDER 15 GM BOTTLE TOP SCH (11:12)
[2020-10-07 12:24] VITALS: BP 136/60
[2020-10-07] MEDS: LACTATED RINGERS 1,000 ML IV SCH (12:35)
[2020-10-07] MEDS: LEVOFLOXACIN INJ 500 MG/100 ML PREMIX IV SCH (16:25)
== END 2020-10-07 16:15 | DRG 698 ==
LOC: EDBD → EDUNIT# → N.ED 07:34 → N.EDINP 12:01 → SUATTDRO 12:01 → N.5E 12:51 → N.CVR 09-30 00:40 → N.ED 09-30 00:50 → N.CVR 09-30 01:40 → N.3E 10-01 10:34
PROVIDERS: ADMIT Internal Medicine; ATTEND Internal Medicine
PROC: EGDWPEG (ICD-10-PCS; 2020-10-02 11:05)

== ENCOUNTER 2020-11-01 11:24 | Inpatient (IN) ==
[2020-11-01] MEDS ORDERED: SODIUM CHLORIDE 0.9% 2,000 ML IV STA (12:07)
[2020-11-01 12:24] LABS: Basophils # 0.1 10*3/uL (0.0-0.2); Basophils % 0.3 % (0.0-0.8); Eosinophils # 0.1 10*3/uL (0.0-0.87); Eosinophils % 0.9 % (0.00-10.9); Hematocrit 33.5 VOL% (42.0-52.0); Hemoglobin 10.4 GM/DL (14.0-18.0); Immature Granulocytes % 0.3 %; Immature Granulocytes Absolute 0.05 #; Lymphocytes # 1.1 10*3/uL (1.4-4.0); Mean Corpuscular Volume 90.5 FL (87-102); Mean Platelet Volume 9.4 FL (9.6-12.0); Monocytes % 3.2 % (1.7-12.7); Neutrophils % 88.3 % (38.7-73.9); Platelet Count 287 T/CUMM (130-400); White Blood Count 15.2 T/CUMM (4-12)
[2020-11-01 12:49] LABS: Bilirubin,Total 0.4 MG/DL (0.20-1.00); Calcium 8.1 MG/DL (8.5-10.1); Osmolality,Calculated 302.1 MOS/KG (273-304); Potassium 5.4 MMOL/L (3.5-5.1); Total Protein 6.5 G/DL (6.4-8.2)
[2020-11-01 12:59] LABS: Bilirubin,Urine Negative (Negative); Blood, Urine Negative (Negative); Glucose,Urine (UA) Negative (Negative); Ketones,Urine Negative (Negative); Nitrite,Urine Negative (Negative); Protein,Urine 100 MG/DL; RBC,Urine 35 /HPF (0-4); Urine Appearance CLOUDY (Clear); Urine Color Yellow (Yellow); Urine Specific Gravity 1.015 (1.001-1.035); Urine Urobilinogen < 2.0 EU/DL (0.2-1.0)
[2020-11-01] MEDS ORDERED: CEFEPIME 2,000 MG in SODIUM CHLORIDE 0.9% 100 ML IV STA (13:14)
[2020-11-01] MEDS ORDERED: SODIUM CHLORIDE 0.9% 1,000 ML IV STA (14:00)
[2020-11-01] MEDS ORDERED: NOREPINEPHRINE 4 MG/4 ML VIAL IV ONE (14:07)
[2020-11-01] MEDS: NOREPINEPHRINE 8 MG in SODIUM CHLORIDE 0.9% 242 ML IV PRN (14:15)
[2020-11-01] MEDS ORDERED: SODIUM CHLORIDE 0.9% 2,400 ML IV ONE (14:48)
[2020-11-01] MEDS ORDERED: GLUCAGON 1 MG VIAL IM PRN ×2 (15:15→15:41)
[2020-11-01] MEDS ORDERED: DEXTROSE 50% 25 GM/50 ML VIAL IV PRN ×2 (15:15→15:41)
[2020-11-01] MEDS ORDERED: ONDANSETRON 4 MG/2 ML VIAL IV PRN (15:15)
[2020-11-01] MEDS ORDERED: VANCOMYCIN INJ 1,000 MG in SODIUM CHLORIDE 0.9% 250 ML IV ONE (15:21)
[2020-11-01] MEDS ORDERED: CEFEPIME 2,000 MG in SODIUM CHLORIDE 0.9% 100 ML IV SCH (15:30)
[2020-11-01] MEDS ORDERED: SODIUM POLYSTYRENE SULFATE 15 GM/60 ML BOTTLE PO ONE (15:57)
[2020-11-01] MEDS ORDERED: LEVOFLOXACIN INJ 500 MG/100 ML PREMIX IV SCH (16:00)
[2020-11-01] MEDS: SODIUM CHLORIDE 0.9% 1,000 ML IV SCH ×2 (16:30→22:47)
[2020-11-01] MEDS: HEPARIN 5,000 UNIT/1 ML VIAL SUBCUT SCH (16:39)
[2020-11-01] MEDS: INSULIN REGULAR 100 UNIT/ML SUBCUT SCH ×2 (17:25→22:46)
[2020-11-01] MEDS: VANCOMYCIN INJ 1,250 MG in SODIUM CHLORIDE 0.9% 250 ML IV SCH (18:32)
[2020-11-02] MEDS: HEPARIN 5,000 UNIT/1 ML VIAL SUBCUT SCH ×3 (00:34→17:25)
[2020-11-02] MEDS: NOREPINEPHRINE 8 MG in SODIUM CHLORIDE 0.9% 242 ML IV PRN (02:48)
[2020-11-02 04:32] LABS: Basophils # 0.1 10*3/uL (0.0-0.2); Basophils % 0.2 % (0.0-0.8); Hematocrit 25.1 VOL% (42.0-52.0); Immature Granulocytes % 1.3 %; Lymphocytes % 2.5 % (21.2-54.2); Mean Corpuscular HGB Conc 30.3 GM/DL (32-36); Mean Corpuscular Volume 92.6 FL (87-102); Mean Platelet Volume 9.4 FL (9.6-12.0); Monocytes % 2.3 % (1.7-12.7); Neutrophils % 93.7 % (38.7-73.9); Red Cell Distribution Width 14.7 % (9.3-17.3)
[2020-11-02 04:37] LABS: Hemoglobin 7.6 GM/DL (14.0-18.0); Platelet Count 366 T/CUMM (130-400); Red Blood Count 2.71 MC/CUMM (3.8-5.5); White Blood Count 38.2 T/CUMM (4-12)
[2020-11-02 04:41] LABS: Band Neutrophils 2 % (0-10); Lymphocytes 2 % (20-55); Segmented Neutrophils 91 % (50-85); Total Cells Counted 100
[2020-11-02 04:42] LABS: Albumin 1.7 G/DL (3.4-5.0); Calcium 7.8 MG/DL (8.5-10.1); Hypochromasia 1+; Microcytosis 1+; Osmolality,Calculated 304.7 MOS/KG (273-304); Polychromasia Slight; Potassium 4.6 MMOL/L (3.5-5.1); Total Protein 6.9 G/DL (6.4-8.2)
[2020-11-02 04:44] LABS: Platelet Estimate Normal
[2020-11-02] MEDS: SODIUM CHLORIDE 0.9% 1,000 ML IV SCH ×2 (07:17→18:10)
[2020-11-02] MEDS: INSULIN REGULAR 100 UNIT/ML SUBCUT SCH ×3 (08:39→17:25)
[2020-11-02] MEDS ORDERED: PANTOPRAZOLE 40 MG TABLET PO SCH (09:00)
[2020-11-02] MEDS: PANTOPRAZOLE 40 MG VIAL IV SCH (09:41)
[2020-11-02] MEDS: VANCOMYCIN INJ 1,250 MG in SODIUM CHLORIDE 0.9% 250 ML IV SCH (12:12)
[2020-11-02] MEDS: LEVOFLOXACIN INJ 750 MG/150 ML PREMIX IV SCH (14:35)
[2020-11-02] MEDS: VALPROIC ACID 250 MG/5 ML UDCUP PO SCH (20:48)
[2020-11-03] MEDS: HEPARIN LOCK FLUSH 500 UNIT/5 ML SYRINGE IV SCH (00:12)
[2020-11-03] MEDS: INSULIN REGULAR 100 UNIT/ML SUBCUT SCH ×4 (00:24→17:51)
[2020-11-03] MEDS: HEPARIN 5,000 UNIT/1 ML VIAL SUBCUT SCH ×3 (00:51→17:10)
[2020-11-03] MEDS: SODIUM CHLORIDE 0.9% 1,000 ML IV SCH ×4 (02:52→17:32)
[2020-11-03 06:15] LABS: Basophils # 0.1 10*3/uL (0.0-0.2); Basophils % 0.2 % (0.0-0.8); Eosinophils % 0.1 % (0.00-10.9); Hematocrit 25.1 VOL% (42.0-52.0); Hemoglobin 7.7 GM/DL (14.0-18.0); Immature Granulocytes Absolute 0.21 #; Lymphocytes # 0.8 10*3/uL (1.4-4.0); Lymphocytes % 3.6 % (21.2-54.2); Mean Corpuscular HGB Conc 30.7 GM/DL (32-36); Mean Platelet Volume 9.5 FL (9.6-12.0); Monocytes % 3.1 % (1.7-12.7); Platelet Count 294 T/CUMM (130-400); Red Blood Count 2.79 MC/CUMM (3.8-5.5); Red Cell Distribution Width 15.5 % (9.3-17.3); White Blood Count 21.9 T/CUMM (4-12)
[2020-11-03 06:24] LABS: Alanine Aminotransferase < 9 U/L (16-61); Albumin 1.6 G/DL (3.4-5.0); Alkaline Phosphatase 87 U/L (45-117); Aspartate Amino Transferase 8 U/L (0-37); Blood Urea Nitrogen 38 MG/DL (7-18); Calcium 7.9 MG/DL (8.5-10.1); Carbon Dioxide 23 MMOL/L (21-32); Estimated Glom Filtration Rate 110 ML/MIN; Glucose 179 MG/DL (74-106); Osmolality,Calculated 308.1 MOS/KG (273-304); Potassium 3.8 MMOL/L (3.5-5.1); Sodium 149 MMOL/L (136-145); Total Protein 6.4 G/DL (6.4-8.2)
[2020-11-03 06:38] LABS: Eosinophils 1 % (0-10); Lymphocytes 3 % (20-55); Platelet Estimate Adequate; Segmented Neutrophils 94 % (50-85); Total Cells Counted 100
[2020-11-03 06:39] LABS: Hypochromasia 2+; Microcytosis 1+
[2020-11-03] MEDS: VALPROIC ACID 250 MG/5 ML UDCUP PO SCH ×2 (09:25→21:18)
[2020-11-03] MEDS: ASPIRIN EC 81 MG TABLET PO SCH (09:25)
[2020-11-03] MEDS: LEVOTHYROXINE 200 MCG TABLET PO SCH (09:25)
[2020-11-03] MEDS: PANTOPRAZOLE 40 MG VIAL IV SCH (09:26)
[2020-11-03] MEDS: LEVOFLOXACIN INJ 750 MG/150 ML PREMIX IV SCH (12:02)
[2020-11-03] MEDS ORDERED: HEPARIN LOCK FLUSH 500 UNIT/5 ML SYRINGE IV PRN (13:15)
[2020-11-03] MEDS: POTASSIUM PHOS/SOD PHOS POWDER 250 MG PACK PEG SCH ×2 (14:16→21:19)
[2020-11-03] MEDS ORDERED: MAGNESIUM SULF RIDER 4 GM/100 ML PREMIX IV ONE (15:00)
[2020-11-03] MEDS: ACETAMINOPHEN 325 MG TABLET PO PRN ×2 (17:10→21:19)
[2020-11-04] MEDS: INSULIN REGULAR 100 UNIT/ML SUBCUT SCH ×4 (00:19→17:58)
[2020-11-04] MEDS: HEPARIN 5,000 UNIT/1 ML VIAL SUBCUT SCH ×3 (00:36→16:13)
[2020-11-04] MEDS: POTASSIUM PHOS/SOD PHOS POWDER 250 MG PACK PEG SCH ×4 (02:55→22:01)
[2020-11-04] MEDS: SODIUM CHLORIDE 0.9% 1,000 ML IV SCH ×2 (05:20→15:47)
[2020-11-04 05:34] LABS: Basophils # 0.1 10*3/uL (0.0-0.2); Basophils % 0.3 % (0.0-0.8); Eosinophils # 0.1 10*3/uL (0.0-0.87); Eosinophils % 0.4 % (0.00-10.9); Hematocrit 23.6 VOL% (42.0-52.0); Hemoglobin 7.2 GM/DL (14.0-18.0); Immature Granulocytes % 1.4 %; Lymphocytes # 1.4 10*3/uL (1.4-4.0); Lymphocytes % 6.4 % (21.2-54.2); Mean Corpuscular HGB Conc 30.5 GM/DL (32-36); Mean Corpuscular Volume 90.4 FL (87-102); Mean Platelet Volume 9.5 FL (9.6-12.0); Monocytes % 3.7 % (1.7-12.7); Neutrophils % 87.8 % (38.7-73.9); Platelet Count 273 T/CUMM (130-400); Red Blood Count 2.61 MC/CUMM (3.8-5.5); Red Cell Distribution Width 15.3 % (9.3-17.3)
[2020-11-04 06:02] LABS: Calcium 7.6 MG/DL (8.5-10.1); Osmolality,Calculated 301.4 MOS/KG (273-304); Potassium 3.5 MMOL/L (3.5-5.1)
[2020-11-04] MEDS: VALPROIC ACID 250 MG/5 ML UDCUP PO SCH ×2 (08:54→22:00)
[2020-11-04] MEDS: ASPIRIN EC 81 MG TABLET PO SCH (08:54)
[2020-11-04] MEDS: LEVOTHYROXINE 200 MCG TABLET PO SCH (08:54)
[2020-11-04] MEDS: HEPARIN LOCK FLUSH 500 UNIT/5 ML SYRINGE IV SCH ×2 (08:54→22:00)
[2020-11-04] MEDS: PANTOPRAZOLE 40 MG VIAL IV SCH (08:55)
[2020-11-04] MEDS: ACETAMINOPHEN 325 MG TABLET PO PRN ×2 (10:34→22:12)
[2020-11-05] MEDS: INSULIN REGULAR 100 UNIT/ML SUBCUT SCH ×4 (00:56→17:59)
[2020-11-05] MEDS: HEPARIN 5,000 UNIT/1 ML VIAL SUBCUT SCH ×3 (01:03→17:09)
[2020-11-05] MEDS: SODIUM CHLORIDE 0.9% 1,000 ML IV SCH ×2 (01:35→17:15)
[2020-11-05 05:57] LABS: Basophils # 0.1 10*3/uL (0.0-0.2); Basophils % 0.3 % (0.0-0.8); Eosinophils # 0.4 10*3/uL (0.0-0.87); Eosinophils % 2.2 % (0.00-10.9); Hematocrit 24.5 VOL% (42.0-52.0); Hemoglobin 7.7 GM/DL (14.0-18.0); Immature Granulocytes % 0.7 %; Immature Granulocytes Absolute 0.13 #; Lymphocytes # 1.4 10*3/uL (1.4-4.0); Lymphocytes % 8.1 % (21.2-54.2); Mean Corpuscular HGB Conc 31.4 GM/DL (32-36); Mean Corpuscular Volume 89.7 FL (87-102); Mean Platelet Volume 9.6 FL (9.6-12.0); Monocytes % 4.9 % (1.7-12.7); Neutrophils % 83.8 % (38.7-73.9); Platelet Count 284 T/CUMM (130-400); Red Blood Count 2.73 MC/CUMM (3.8-5.5); Red Cell Distribution Width 15.1 % (9.3-17.3); White Blood Count 17.6 T/CUMM (4-12)
[2020-11-05 06:24] LABS: Calcium 7.6 MG/DL (8.5-10.1); Osmolality,Calculated 292.8 MOS/KG (273-304); Potassium 3.8 MMOL/L (3.5-5.1)
[2020-11-05 06:25] LABS: Calcium 7.2 MG/DL (8.5-10.1); Osmolality,Calculated 292.8 MOS/KG (273-304); Potassium 4.1 MMOL/L (3.5-5.1)
[2020-11-05] MEDS: ASPIRIN EC 81 MG TABLET PO SCH (08:23)
[2020-11-05] MEDS: PANTOPRAZOLE 40 MG VIAL IV SCH (08:23)
[2020-11-05] MEDS: VALPROIC ACID 250 MG/5 ML UDCUP PO SCH ×2 (08:24→22:10)
[2020-11-05] MEDS: LEVOTHYROXINE 200 MCG TABLET PO SCH (08:24)
[2020-11-05] MEDS: HEPARIN LOCK FLUSH 500 UNIT/5 ML SYRINGE IV SCH ×2 (09:09→22:10)
[2020-11-05] MEDS ORDERED: MAGNESIUM SULF RIDER 2 GM/50 ML PREMIX IV PRN (14:15)
[2020-11-05] MEDS ORDERED: MAGNESIUM SULF RIDER 4 GM/100 ML PREMIX IV PRN (14:15)
[2020-11-05] MEDS: ACETAMINOPHEN 325 MG TABLET PO PRN (17:13)
[2020-11-06] MEDS: INSULIN REGULAR 100 UNIT/ML SUBCUT SCH ×5 (00:53→23:34)
[2020-11-06] MEDS: SODIUM CHLORIDE 0.9% 1,000 ML IV SCH ×2 (01:05→23:30)
[2020-11-06] MEDS: HEPARIN 5,000 UNIT/1 ML VIAL SUBCUT SCH ×3 (01:05→17:06)
[2020-11-06 05:45] LABS: Basophils # 0.1 10*3/uL (0.0-0.2); Basophils % 0.6 % (0.0-0.8); Eosinophils # 0.6 10*3/uL (0.0-0.87); Eosinophils % 4.1 % (0.00-10.9); Hematocrit 26.6 VOL% (42.0-52.0); Hemoglobin 8.1 GM/DL (14.0-18.0); Immature Granulocytes % 0.6 %; Immature Granulocytes Absolute 0.09 #; Lymphocytes # 1.3 10*3/uL (1.4-4.0); Lymphocytes % 9.2 % (21.2-54.2); Mean Corpuscular HGB Conc 30.5 GM/DL (32-36); Mean Platelet Volume 9.7 FL (9.6-12.0); Monocytes % 6.1 % (1.7-12.7); Neutrophils % 79.4 % (38.7-73.9); Platelet Count 316 T/CUMM (130-400); Red Blood Count 2.99 MC/CUMM (3.8-5.5); Red Cell Distribution Width 14.8 % (9.3-17.3); White Blood Count 14.5 T/CUMM (4-12)
[2020-11-06 05:46] LABS: Osmolality,Calculated 292.1 MOS/KG (273-304); Potassium 4.5 MMOL/L (3.5-5.1)
[2020-11-06] MEDS: LEVOTHYROXINE 200 MCG TABLET PO SCH (09:47)
[2020-11-06] MEDS: ASPIRIN EC 81 MG TABLET PO SCH (09:47)
[2020-11-06] MEDS: PANTOPRAZOLE 40 MG VIAL IV SCH (09:47)
[2020-11-06] MEDS: VALPROIC ACID 250 MG/5 ML UDCUP PO SCH ×2 (09:48→21:07)
[2020-11-06] MEDS: ACETAMINOPHEN 325 MG TABLET PO PRN ×2 (09:50→21:06)
[2020-11-06] MEDS: HEPARIN LOCK FLUSH 500 UNIT/5 ML SYRINGE IV SCH ×2 (10:14→21:07)
[2020-11-07] MEDS: HEPARIN 5,000 UNIT/1 ML VIAL SUBCUT SCH ×3 (01:34→18:01)
[2020-11-07] MEDS: ACETAMINOPHEN 325 MG TABLET PO PRN ×2 (04:21→21:02)
[2020-11-07] MEDS: INSULIN REGULAR 100 UNIT/ML SUBCUT SCH ×3 (06:29→18:01)
[2020-11-07 06:49] LABS: Basophils # 0.1 10*3/uL (0.0-0.2); Basophils % 0.6 % (0.0-0.8); Eosinophils # 0.8 10*3/uL (0.0-0.87); Eosinophils % 5.5 % (0.00-10.9); Hematocrit 27.1 VOL% (42.0-52.0); Hemoglobin 8.3 GM/DL (14.0-18.0); Immature Granulocytes % 1.1 %; Immature Granulocytes Absolute 0.15 #; Lymphocytes # 1.7 10*3/uL (1.4-4.0); Lymphocytes % 12.5 % (21.2-54.2); Mean Corpuscular HGB Conc 30.6 GM/DL (32-36); Mean Corpuscular Volume 89.4 FL (87-102); Monocytes % 5.8 % (1.7-12.7); Neutrophils % 74.5 % (38.7-73.9); Platelet Count 342 T/CUMM (130-400); Red Blood Count 3.03 MC/CUMM (3.8-5.5); Red Cell Distribution Width 14.8 % (9.3-17.3); White Blood Count 13.7 T/CUMM (4-12)
[2020-11-07 07:05] LABS: Calcium 8.2 MG/DL (8.5-10.1); Osmolality,Calculated 288.3 MOS/KG (273-304); Potassium 4.6 MMOL/L (3.5-5.1)
[2020-11-07] MEDS: VALPROIC ACID 250 MG/5 ML UDCUP PO SCH ×2 (08:59→21:02)
[2020-11-07] MEDS: ASPIRIN EC 81 MG TABLET PO SCH (08:59)
[2020-11-07] MEDS: LEVOTHYROXINE 200 MCG TABLET PO SCH (08:59)
[2020-11-07] MEDS: PANTOPRAZOLE 40 MG VIAL IV SCH (09:00)
[2020-11-07] MEDS: HEPARIN LOCK FLUSH 500 UNIT/5 ML SYRINGE IV SCH ×2 (11:16→21:39)
[2020-11-07] MEDS: SODIUM CHLORIDE 0.9% 1,000 ML IV SCH ×2 (14:50)
[2020-11-07] MEDS ORDERED: MORPHINE 2 MG/1 ML SYRINGE IV PRN (17:09)
[2020-11-07] MEDS: oxyCODONE/ACETAMINOPHEN 5-325 MG TABLET PO PRN (18:05)
[2020-11-08] MEDS: HEPARIN 5,000 UNIT/1 ML VIAL SUBCUT SCH ×3 (00:31→18:00)
[2020-11-08] MEDS: INSULIN REGULAR 100 UNIT/ML SUBCUT SCH ×4 (00:40→19:00)
[2020-11-08 05:31] LABS: Basophils # 0.1 10*3/uL (0.0-0.2); Basophils % 0.6 % (0.0-0.8); Eosinophils # 0.8 10*3/uL (0.0-0.87); Eosinophils % 5.6 % (0.00-10.9); Hematocrit 28.6 VOL% (42.0-52.0); Hemoglobin 8.8 GM/DL (14.0-18.0); Immature Granulocytes % 1.7 %; Immature Granulocytes Absolute 0.24 #; Lymphocytes # 2.2 10*3/uL (1.4-4.0); Lymphocytes % 15.5 % (21.2-54.2); Mean Corpuscular HGB Conc 30.8 GM/DL (32-36); Mean Corpuscular Volume 90.5 FL (87-102); Mean Platelet Volume 9.8 FL (9.6-12.0); Monocytes % 5.4 % (1.7-12.7); NRBC # 0.02 10*3/uL; Neutrophils % 71.2 % (38.7-73.9); Platelet Count 331 T/CUMM (130-400); Red Blood Count 3.16 MC/CUMM (3.8-5.5); Red Cell Distribution Width 14.8 % (9.3-17.3)
[2020-11-08] MEDS: oxyCODONE/ACETAMINOPHEN 5-325 MG TABLET PO PRN ×2 (05:39→17:59)
[2020-11-08 06:03] LABS: Calcium 8.3 MG/DL (8.5-10.1); Osmolality,Calculated 292.3 MOS/KG (273-304); Potassium 5.4 MMOL/L (3.5-5.1)
[2020-11-08] MEDS: ASPIRIN EC 81 MG TABLET PO SCH (09:37)
[2020-11-08] MEDS: PANTOPRAZOLE 40 MG VIAL IV SCH (09:38)
[2020-11-08] MEDS: VALPROIC ACID 250 MG/5 ML UDCUP PO SCH ×2 (09:38→22:04)
[2020-11-08] MEDS: HEPARIN LOCK FLUSH 500 UNIT/5 ML SYRINGE IV SCH ×2 (09:38→22:06)
[2020-11-08] MEDS: LEVOTHYROXINE 200 MCG TABLET PO SCH (09:40)
[2020-11-08 12:35] LABS: Cyclic Citrull Peptide Interp Negative
[2020-11-08] MEDS ORDERED: INSULIN REGULAR 10 UNIT, CALCIUM GLUCONATE 1,000 MG in DEXTROSE 10% 250 ML IV ONE (14:29)
[2020-11-08] MEDS: SODIUM CHLORIDE 0.9% 1,000 ML IV SCH ×2 (15:12→15:13)
[2020-11-08] MEDS: ACETAMINOPHEN 325 MG TABLET PO PRN (22:04)
[2020-11-09] MEDS: SODIUM CHLORIDE 0.9% 1,000 ML IV SCH ×3 (00:34→16:25)
[2020-11-09] MEDS: HEPARIN 5,000 UNIT/1 ML VIAL SUBCUT SCH ×2 (00:35→09:59)
[2020-11-09] MEDS: INSULIN REGULAR 100 UNIT/ML SUBCUT SCH ×3 (01:10→12:08)
[2020-11-09 06:00] LABS: Basophils # 0.1 10*3/uL (0.0-0.2); Basophils % 0.7 % (0.0-0.8); Eosinophils # 0.9 10*3/uL (0.0-0.87); Eosinophils % 6.5 % (0.00-10.9); Hemoglobin 8.8 GM/DL (14.0-18.0); Immature Granulocytes % 2.8 %; Lymphocytes # 2.7 10*3/uL (1.4-4.0); Lymphocytes % 19.2 % (21.2-54.2); Mean Corpuscular HGB Conc 30.3 GM/DL (32-36); Mean Corpuscular Volume 91.5 FL (87-102); Monocytes % 6.7 % (1.7-12.7); NRBC # 0.03 10*3/uL; Neutrophils % 64.1 % (38.7-73.9); Platelet Count 399 T/CUMM (130-400); Red Blood Count 3.17 MC/CUMM (3.8-5.5); Red Cell Distribution Width 15.1 % (9.3-17.3); White Blood Count 14.3 T/CUMM (4-12)
[2020-11-09] MEDS: ACETAMINOPHEN 325 MG TABLET PO PRN (06:23)
[2020-11-09 06:44] LABS: Calcium 8.8 MG/DL (8.5-10.1); Osmolality,Calculated 288.7 MOS/KG (273-304); Potassium 5.9 MMOL/L (3.5-5.1); Uric Acid 3.7 MG/DL (3.5-7.2)
[2020-11-09] MEDS: LEVOTHYROXINE 200 MCG TABLET PO SCH (10:00)
[2020-11-09] MEDS: ASPIRIN EC 81 MG TABLET PO SCH (10:00)
[2020-11-09] MEDS: oxyCODONE/ACETAMINOPHEN 5-325 MG TABLET PO PRN (10:00)
[2020-11-09] MEDS: VALPROIC ACID 250 MG/5 ML UDCUP PO SCH (10:00)
[2020-11-09] MEDS: PANTOPRAZOLE 40 MG VIAL IV SCH (10:16)
[2020-11-09] MEDS: HEPARIN LOCK FLUSH 500 UNIT/5 ML SYRINGE IV SCH (10:17)
[2020-11-09] MEDS ORDERED: SODIUM ZIRCONIUM CYCLOSILICATE 10 GM PACK PO SCH (12:00)
[2020-11-09 13:17] VITALS: BP 153/75
== END 2020-11-09 14:28 | disposition home or self-care (01) | DRG 698 ==
LOC: EDUNIT# → EDBD → N.ED 11:24 → SUATTDRO 15:15 → N.EDINP 15:15 → N.ICU 16:01 → N.5E 11-02 18:14
PROVIDERS: ADMIT Internal Medicine; ATTEND Internal Medicine